=== PATIENT | female | born 1960 | race Caucasian/White ===

== ENCOUNTER 2019-02-18 08:20 | Outpatient (RCR) | payer MEDICARE, OTHER, SELFPAY | END 2019-02-19 00:01 | LOC: LAB 08:20 | PROVIDERS: Family Provider Family Medicine; Visit Provider Family Medicine | DX: N39.0 Urinary tract infection, site not specified (principal); Z79.899 Other long term (current) drug therapy; Z94.0 Kidney transplant status; N18.9 Chronic kidney disease, unspecified; E55.9 Vitamin D deficiency, unspecified; E78.5 Hyperlipidemia, unspecified; E21.3 Hyperparathyroidism, unspecified | CPT/HCPCS: 36415 ×3; 80053 ×3; 80061; 80197 ×3; 81001 ×2; 81003; 82306; 82570 ×3; 83735 ×3; 84100 ×3; 84156 ×3; 84550; 85025 ×3; 87086 ×2; 87497 ×3; 87799 ×3 ==

== ENCOUNTER 2019-02-26 08:33 | Outpatient (RCR) | payer MEDICARE, OTHER, SELFPAY ==
[2019-02-26 09:12] LABS: Basophils # 0.1 10^3/uL (0.0-0.1); Basophils % 0.6 %; Eosinophils # 0.4 10^3/uL (0.0-0.8); Eosinophils % 4.1 %; Hematocrit 43.2 % (37.0-47.0); Hemoglobin 13.6 g/dL (11.5-15.3); Lymphocytes # 0.7 10^3/uL (0.8-4.8); Mean Corpuscular HGB Conc 31.5 g/dL (30.0-36.0); Mean Corpuscular Hemoglobin 29.7 pg (28.0-34.0); Mean Corpuscular Volume 94.3 fL (81-99); Mean Platelet Volume 8.7 fL (7.4-10.4); Monocytes # 0.5 10^3/uL (0.2-0.9); Monocytes % 5.8 %; Neutrophils % 81.2 %; Nucleated Red Blood Cells % 0 %; Platelet Count 208 10^3/cmm (130-400); Red Blood Count 4.58 10^6/uL (4.1-5.3); Red Cell Distribution Width 13.6 % (12.1-15.1); White Blood Count 8.6 10^3/uL (4.0-10.0)
[2019-02-26 09:29] LABS: Alanine Aminotransferase 9 U/L (0-33); Albumin Level 4.6 g/dL (3.5-5.2); Alkaline Phosphatase 69 IU/L (35-105); Anion Gap 13.9 (5-19); Aspartate Amino Transferase 13 U/L (0-32); Blood Urea Nitrogen 19 mg/dL (6-20); Calcium 11.6 mg/Dl (8.6-10.0); Carbon Dioxide 28 mmol/L (22-29); Chloride 98 mmol/L (98-107); Globulin 2.6 g/dL (1.3-4.6); Glomerular Filtration Rate 41.9 mL/min (90-130); Glucose 111 mg/dL (74-109); Magnesium 1.7 mg/dL (1.7-2.3); Phosphorus 3.4 mg/dL (2.5-4.5); Potassium 4.9 mmol/L (3.5-5.1); Sodium 135 mmol/L (136-145); Total Bilirubin 0.4 mg/dL (0.15-1.2); Total Protein 7.2 g/dL (6.6-8.7)
[2019-02-26 09:59] LABS: Bilirubin Urine Neg (NEGATIVE); Blood Urine Neg (Negative); Glucose Urine UA Norm (Normal); Ketones Urine Negative (Negative); Leukocyte Esterase Urine Negative (Negative); Nitrate Urine Negative (Negative); Protein Urine Neg (Negative); Specific Gravity, Urine 1.015 (1.005-1.030); Urine Appearance Clear (CLEAR); Urine Color Yellow (Yellow); Urobilinogen Urine Norm (Negative)
[2019-02-26 10:03] LABS: RBC Urine 0-4 /hpf (0-2)
[2019-02-26 10:04] LABS: Add Urine Culture? No; Bacteria Urine TRACE; Mucus Urine TRACE
[2019-02-26 10:08] LABS: Urine Creatinine 91 mg/dL (28-217)
[2019-02-26 10:57] LABS: Urine Protein Random 9 mg/dL
[2019-03-01 13:41] LABS: Urine BK Virus DNA Quant NO DNA DETECTED copies/mL
[2019-03-03 02:31] LABS: CMV DNA By PCR <200 IU/mL; CMV DNA, QN PCR <2.30 Log IU/mL; SOURCE BLOOD
== END 2019-03-22 23:59 | disposition home or self-care (01) ==
LOC: LAB 08:33
PROVIDERS: Family Provider Family Medicine; PCP Family Medicine; Referring Provider Hospitalist; Visit Provider Hospitalist
DX: N39.0 Urinary tract infection, site not specified (principal); Z79.899 Other long term (current) drug therapy; Z94.0 Kidney transplant status
CPT/HCPCS: 36415; 80053; 80197; 81001; 82570; 83735; 84100; 84156; 85025; 87086; 87799

== ENCOUNTER 2019-02-27 13:15 | Outpatient (CLI) | payer MEDICARE, OTHER, SELFPAY | END 2019-02-27 13:16 | disposition home or self-care (01) | LOC: RHEOACUTE 03-18 14:26 | PROVIDERS: Family Provider Family Medicine; PCP Family Medicine; Visit Provider Family Medicine | DX: M81.0 Age-related osteoporosis without current pathological fracture (principal) | CPT/HCPCS: 96372; J0897 ==

== ENCOUNTER 2019-03-04 08:32 | Outpatient (CLI) | payer MEDICARE, OTHER, SELFPAY ==
[2019-03-04 09:03] LABS: Add Urine Microscopic? NO
[2019-03-04 09:06] LABS: Basophils # 0.1 10^3/uL (0.0-0.1); Basophils % 0.6 %; Eosinophils # 0.2 10^3/uL (0.0-0.8); Eosinophils % 2.4 %; Hematocrit 42.7 % (37.0-47.0); Hemoglobin 13.2 g/dL (11.5-15.3); Lymphocytes # 0.7 10^3/uL (0.8-4.8); Lymphocytes % 7.1 %; Mean Corpuscular HGB Conc 30.9 g/dL (30.0-36.0); Mean Corpuscular Hemoglobin 28.4 pg (28.0-34.0); Mean Platelet Volume 8.5 fL (7.4-10.4); Monocytes # 0.4 10^3/uL (0.2-0.9); Monocytes % 4.6 %; Nucleated Red Blood Cells % 0 %; Platelet Count 210 10^3/cmm (130-400); Red Blood Count 4.64 10^6/uL (4.1-5.3); Red Cell Distribution Width 13.5 % (12.1-15.1); White Blood Count 9.4 10^3/uL (4.0-10.0)
[2019-03-04 09:20] LABS: Alanine Aminotransferase 11 U/L (0-33); Albumin Level 4.6 g/dL (3.5-5.2); Alkaline Phosphatase 66 IU/L (35-105); Anion Gap 15.8 (5-19); Aspartate Amino Transferase 14 U/L (0-32); Blood Urea Nitrogen 19 mg/dL (6-20); Calcium 11.3 mg/Dl (8.6-10.0); Carbon Dioxide 24 mmol/L (22-29); Chloride 103 mmol/L (98-107); Globulin 2.1 g/dL (1.3-4.6); Glomerular Filtration Rate 50.8 mL/min (90-130); Glucose 118 mg/dL (74-109); Magnesium 1.6 mg/dL (1.7-2.3); Phosphorus 2.8 mg/dL (2.5-4.5); Potassium 4.8 mmol/L (3.5-5.1); Sodium 138 mmol/L (136-145); Total Bilirubin 0.5 mg/dL (0.15-1.2); Total Protein 6.7 g/dL (6.6-8.7)
[2019-03-04 11:10] LABS: Bilirubin Urine Neg (NEGATIVE); Blood Urine Neg (Negative); Glucose Urine UA Norm (Normal); Ketones Urine Negative (Negative); Leukocyte Esterase Urine Negative (Negative); Nitrate Urine Negative (Negative); Protein Urine Neg (Negative); Urine Appearance Clear (CLEAR); Urine Color Straw (Yellow); Urobilinogen Urine Norm (Negative)
[2019-03-04 12:05] LABS: Urine Protein Random 10 mg/dL
[2019-03-04 13:53] LABS: Creatinine Urine, Random 80 mg/dL (28-217)
[2019-03-07 16:32] LABS: Urine BK Virus DNA Quant NO DNA DETECTED copies/mL
[2019-03-07 21:51] LABS: CMV DNA By PCR <200 IU/mL; CMV DNA, QN PCR <2.30 Log IU/mL; SOURCE NOT GIVEN
== END 2019-03-04 08:33 | disposition home or self-care (01) ==
LOC: LAB 08:43
PROVIDERS: Family Provider Family Medicine; PCP Family Medicine
DX: N39.0 Urinary tract infection, site not specified (principal); Z79.899 Other long term (current) drug therapy; Z94.0 Kidney transplant status
CPT/HCPCS: 36415; 80053; 80197; 81003; 82575; 83735; 84100; 84156; 85025; 87086; 87799

== ENCOUNTER 2019-03-27 08:56 | Outpatient (CLI) | payer MEDICARE, OTHER, SELFPAY ==
[2019-03-27 09:42] LABS: Basophils # 0.1 10^3/uL (0.0-0.1); Basophils % 0.7 %; Eosinophils # 0.3 10^3/uL (0.0-0.8); Eosinophils % 3.2 %; Hematocrit 43.1 % (37.0-47.0); Hemoglobin 13.6 g/dL (11.5-15.3); Lymphocytes # 0.6 10^3/uL (0.8-4.8); Lymphocytes % 7.6 %; Mean Corpuscular HGB Conc 31.6 g/dL (30.0-36.0); Mean Corpuscular Hemoglobin 28.8 pg (28.0-34.0); Mean Corpuscular Volume 91.3 fL (81-99); Mean Platelet Volume 8.7 fL (7.4-10.4); Monocytes # 0.3 10^3/uL (0.2-0.9); Neutrophils # 6.9 10^3/uL (1.8-7.7); Neutrophils % 84.1 %; Nucleated Red Blood Cells % 0 %; Platelet Count 204 10^3/cmm (130-400); Red Blood Count 4.72 10^6/uL (4.1-5.3); Red Cell Distribution Width 13.3 % (12.1-15.1); White Blood Count 8.3 10^3/uL (4.0-10.0)
[2019-03-27 10:06] LABS: Alanine Aminotransferase 12 U/L (0-33); Albumin Level 4.5 g/dL (3.5-5.2); Alkaline Phosphatase 64 IU/L (35-105); Anion Gap 15.4 (5-19); Aspartate Amino Transferase 17 U/L (0-32); Blood Urea Nitrogen 19 mg/dL (6-20); Calcium 11.2 mg/dL (8.5-10.5); Carbon Dioxide 23 mmol/L (22-29); Chloride 104 mmol/L (98-107); Glomerular Filtration Rate 56.7 mL/min (90-130); Glucose 106 mg/dL (65-115); Magnesium 1.9 mg/dL (1.7-2.3); Phosphorus 2.3 mg/dL (2.5-4.5); Potassium 4.4 mmol/L (3.5-5.1); Sodium 138 mmol/L (136-145); Total Bilirubin 0.4 mg/dL (0.15-1.2); Total Protein 7.5 g/dL (6.6-8.7)
[2019-03-30 12:10] LABS: BK VIRUS DNA, QN PCR NO DNA DETECTED copies/mL; CMV DNA By PCR <200 IU/mL; CMV DNA, QN PCR <2.30 Log IU/mL; SOURCE SERUM; SOURCE WHOLE BLOOD
[2019-03-30 15:21] LABS: Urine BK Virus DNA Quant NO DNA DETECTED copies/mL
== END 2019-03-27 08:57 | disposition home or self-care (01) ==
LOC: LAB 09:04
PROVIDERS: Family Provider Family Medicine; PCP Family Medicine; Visit Provider Hospitalist
DX: N39.0 Urinary tract infection, site not specified (principal); Z79.899 Other long term (current) drug therapy; Z94.0 Kidney transplant status
CPT/HCPCS: 36415; 80053; 80197; 83735; 84100; 85025; 87798; 87799

== ENCOUNTER 2019-04-24 08:30 | Outpatient (CLI) | payer MEDICARE, OTHER, SELFPAY ==
[2019-04-24 09:04] LABS: Basophils # 0.1 10^3/uL (0.0-0.1); Basophils % 0.7 %; Eosinophils # 0.3 10^3/uL (0.0-0.8); Eosinophils % 3.1 %; Hematocrit 40.9 % (37.0-47.0); Hemoglobin 12.8 g/dL (11.5-15.3); Lymphocytes # 0.8 10^3/uL (0.8-4.8); Lymphocytes % 8.8 %; Mean Corpuscular HGB Conc 31.3 g/dL (30.0-36.0); Mean Corpuscular Hemoglobin 28.9 pg (28.0-34.0); Mean Corpuscular Volume 92.3 fL (81-99); Mean Platelet Volume 8.5 fL (7.4-10.4); Monocytes # 0.3 10^3/uL (0.2-0.9); Monocytes % 3.8 %; Neutrophils # 7.1 10^3/uL (1.8-7.7); Neutrophils % 83.3 %; Nucleated Red Blood Cells % 0 %; Platelet Count 206 10^3/cmm (130-400); Red Blood Count 4.43 10^6/uL (4.1-5.3); Red Cell Distribution Width 13.1 % (12.1-15.1); White Blood Count 8.6 10^3/uL (4.0-10.0)
[2019-04-24 09:15] LABS: Alanine Aminotransferase 14 U/L (0-33); Albumin Level 4.5 g/dL (3.5-5.2); Alkaline Phosphatase 66 IU/L (35-105); Anion Gap 15.4 (5-19); Aspartate Amino Transferase 17 U/L (0-32); Blood Urea Nitrogen 17 mg/dL (6-20); Calcium 11.1 mg/dL (8.5-10.5); Carbon Dioxide 25 mmol/L (22-29); Chloride 105 mmol/L (98-107); Globulin 2.7 g/dL (1.3-4.6); Glucose 106 mg/dL (65-115); Magnesium 1.6 mg/dL (1.7-2.3); Phosphorus 2.9 mg/dL (2.5-4.5); Potassium 5.4 mmol/L (3.5-5.1); Sodium 140 mmol/L (136-145); Total Bilirubin 0.4 mg/dL (0.15-1.2); Total Protein 7.2 g/dL (6.6-8.7)
[2019-04-24 09:44] LABS: Bilirubin Urine Neg (NEGATIVE); Blood Urine Neg (Negative); Glucose Urine UA Norm (Normal); Ketones Urine Negative (Negative); Leukocyte Esterase Urine Negative (Negative); Nitrate Urine Negative (Negative); Protein Urine Neg (Negative); Sulfosalicylic Acid Urine Negative; Urine Appearance Clear (CLEAR); Urine Color Yellow (Yellow); Urobilinogen Urine Norm (Negative); pH Urine 5 (5-7)
[2019-04-24 09:51] LABS: Urine Creatinine 45 mg/dL (28-217); Urine Protein Random 5 mg/dL
[2019-04-26 08:51] LABS: BK VIRUS DNA, QN PCR NO DNA DETECTED copies/mL; SOURCE PLASMA
[2019-04-28 07:25] LABS: CMV DNA By PCR <200 IU/mL; CMV DNA, QN PCR <2.30 Log IU/mL; SOURCE WHOLE BLOOD
== END 2019-04-24 08:31 | disposition home or self-care (01) ==
LOC: LAB 08:38
PROVIDERS: Family Provider Family Medicine; PCP Family Medicine; Visit Provider Hospitalist
DX: N39.0 Urinary tract infection, site not specified (principal); Z79.899 Other long term (current) drug therapy; Z94.0 Kidney transplant status
CPT/HCPCS: 36415; 80053; 80197; 81001; 82570; 83735; 84100; 84156; 85025; 87086; 87798

== ENCOUNTER 2019-06-25 08:29 | Outpatient (CLI) | payer MEDICARE, OTHER, SELFPAY ==
[2019-06-25 09:07] LABS: Basophils # 0.1 10^3/uL (0.0-0.1); Basophils % 1.1 %; Eosinophils # 0.3 10^3/uL (0.0-0.8); Eosinophils % 3.9 %; Hematocrit 42.4 % (37.0-47.0); Lymphocytes # 0.7 10^3/uL (0.8-4.8); Lymphocytes % 9.2 %; Mean Corpuscular HGB Conc 30.7 g/dL (30.0-36.0); Mean Corpuscular Hemoglobin 28.8 pg (28.0-34.0); Mean Platelet Volume 8.6 fL (7.4-10.4); Monocytes # 0.3 10^3/uL (0.2-0.9); Monocytes % 4.6 %; Neutrophils % 80.8 %; Nucleated Red Blood Cells % 0 %; Platelet Count 226 10^3/cmm (130-400); Red Blood Count 4.51 10^6/uL (4.1-5.3); Red Cell Distribution Width 13.1 % (12.1-15.1); White Blood Count 7.5 10^3/uL (4.0-10.0)
[2019-06-25 09:23] LABS: Alanine Aminotransferase 13 U/L (0-33); Albumin Level 4.3 g/dL (3.5-5.2); Alkaline Phosphatase 79 IU/L (35-105); Anion Gap 14.4 (5-19); Aspartate Amino Transferase 17 U/L (0-32); Blood Urea Nitrogen 21 mg/dL (6-20); Calcium 11.3 mg/dL (8.5-10.5); Carbon Dioxide 27 mmol/L (22-29); Chloride 105 mmol/L (98-107); Globulin 2.9 g/dL (1.3-4.6); Glomerular Filtration Rate 50.8 mL/min (90-130); Glucose 120 mg/dL (65-115); Osmolality Calculated 292 mOsm/kg (285-295); Phosphorus 2.8 mg/dL (2.5-4.5); Potassium 4.4 mmol/L (3.5-5.1); Sodium 142 mmol/L (136-145); Total Bilirubin 0.3 mg/dL (0.15-1.2); Total Protein 7.2 g/dL (6.6-8.7)
[2019-06-25 12:41] LABS: Urine Creatinine 25 mg/dL (28-217)
[2019-06-25 12:57] LABS: Specific Gravity, Urine 1.005 (1.005-1.030); Urine Appearance Clear (CLEAR); Urine Color Yellow (Yellow); pH Urine 6 (5-7)
[2019-06-25 12:58] LABS: Add Urine Culture? Yes; Bacteria Urine 4+; Bilirubin Urine Neg (NEGATIVE); Blood Urine Neg (Negative); Glucose Urine UA Norm (Normal); Ketones Urine Negative (Negative); Leukocyte Esterase Urine 2+ (Negative); Nitrate Urine Negative (Negative); Protein Urine Neg (Negative); Renal Epithelial Cells Urine 0-4 /hpf; Urobilinogen Urine Norm (Negative); WBC Urine 15-25 /hpf (0-5)
[2019-06-26 06:18] LABS: Total Protein, Random Urine 5.4 mg/dL (0.0-20.0)
[2019-06-30 03:46] LABS: CMV DNA By PCR <200 IU/mL; CMV DNA, QN PCR <2.30 Log IU/mL; SOURCE WHOLE BLOOD
[2019-06-30 08:51] LABS: BK VIRUS DNA, QN PCR NO DNA DETECTED copies/mL; SOURCE BLOOD
== END 2019-06-25 08:30 | disposition home or self-care (01) ==
LOC: LAB 08:35
PROVIDERS: Family Provider Family Medicine; PCP Family Medicine; Visit Provider Hospitalist
DX: N39.0 Urinary tract infection, site not specified (principal); Z79.899 Other long term (current) drug therapy; Z94.0 Kidney transplant status
CPT/HCPCS: 80053; 80197; 81001; 82570; 83735; 84100; 84156; 85025; 87077; 87086; 87186; 87496; 87798

== ENCOUNTER 2019-08-12 08:59 | Outpatient (CLI) | payer MEDICARE, OTHER, SELFPAY ==
--- NOTE | 2019-08-12 09:12 | MM_ITS ---
WS: [id number] BILATERAL DIGITAL SCREENING MAMMOGRAPHY WITH CAD CLINICAL INFORMATION: SCREENING HISTORY: Screening mammogram. No current complaints. COMPARISON: August 10, 2018 TECHNIQUE: Bilateral CC and MLO views. FINDINGS: Scattered fibroglandular densities bilaterally. No suspicious focal mass, asymmetry, calcifications, or architectural distortion. No evidence of malignancy. Vascular calcification. Punctate calcificatio [place]. MM/[id number] IMPRESSION: BI-RADS: 2-Benign FOLLOW UP: 1 Year Follow-up Recommend return to annual screening mammography.
== END 2019-08-12 09:00 | disposition home or self-care (01) ==
PROVIDERS: PCP Family Medicine; Visit Provider Family Medicine
DX: Z12.31 Encounter for screening mammogram for malignant neoplasm of breast (principal)
CPT/HCPCS: 77067

== ENCOUNTER 2019-08-26 09:48 | Outpatient (CLI) | payer MEDICARE, OTHER, SELFPAY ==
[2019-08-26 10:46] LABS: Basophils # 0.1 10^3/uL (0.0-0.1); Basophils % 0.8 %; Eosinophils # 0.2 10^3/uL (0.0-0.8); Eosinophils % 3.6 %; Hematocrit 44.7 % (37.0-47.0); Lymphocytes # 0.7 10^3/uL (0.8-4.8); Lymphocytes % 10.8 %; Mean Corpuscular HGB Conc 31.3 g/dL (30.0-36.0); Mean Corpuscular Hemoglobin 29.5 pg (28.0-34.0); Mean Corpuscular Volume 94.1 fL (81-99); Monocytes # 0.3 10^3/uL (0.2-0.9); Monocytes % 5.2 %; Neutrophils # 5.1 10^3/uL (1.8-7.7); Neutrophils % 79.3 %; Nucleated Red Blood Cells % 0 %; Platelet Count 208 10^3/cmm (130-400); Red Blood Count 4.75 10^6/uL (4.1-5.3); Red Cell Distribution Width 13.2 % (12.1-15.1); White Blood Count 6.4 10^3/uL (4.0-10.0)
[2019-08-26 11:15] LABS: Urine Creatinine 16 mg/dL (28-217); Urine Protein Random 4 mg/dL
[2019-08-26 11:23] LABS: Bilirubin Urine Neg (NEGATIVE); Blood Urine Neg (Negative); Glucose Urine UA Norm (Normal); Ketones Urine Negative (Negative); Leukocyte Esterase Urine 2+ (Negative); Nitrate Urine Positive (Negative); Protein Urine Neg (Negative); Specific Gravity, Urine 1.005 (1.005-1.030); Squamous Epithelial Cell Urine RARE (0-5); Urine Appearance Clear (CLEAR); Urine Color Straw (Yellow); Urobilinogen Urine Norm (Negative); pH Urine 7 (5-7)
[2019-08-26 11:24] LABS: Add Urine Culture? Yes; Bacteria Urine 3+
[2019-08-26 12:45] LABS: Alanine Aminotransferase 15 U/L (0-33); Albumin Level 4.5 g/dL (3.5-5.2); Alkaline Phosphatase 63 IU/L (35-105); Anion Gap 21.2 (5-19); Blood Urea Nitrogen 20 mg/dL (6-20); Calcium 11.2 mg/dL (8.5-10.5); Carbon Dioxide 16 mmol/L (22-29); Chloride 105 mmol/L (98-107); Globulin 2.7 g/dL (1.3-4.6); Glomerular Filtration Rate 64.1 mL/min (90-130); Glucose 104 mg/dL (65-115); Magnesium 1.8 mg/dL (1.7-2.3); Osmolality Calculated 281 mOsm/kg (285-295); Phosphorus 2.5 mg/dL (2.5-4.5); Potassium 5.2 mmol/L (3.5-5.1); Sodium 137 mmol/L (136-145); Total Bilirubin 0.5 mg/dL (0.15-1.2); Total Protein 7.2 g/dL (6.6-8.7)
[2019-08-26 13:01] LABS: Aspartate Amino Transferase 26 U/L (0-32)
[2019-08-30 20:10] LABS: CMV DNA By PCR <200 IU/mL; CMV DNA, QN PCR <2.30 Log IU/mL; SOURCE BLOOD
[2019-08-30 23:25] LABS: BK VIRUS DNA, QN PCR NO DNA DETECTED copies/mL
== END 2019-08-26 09:49 | disposition home or self-care (01) ==
LOC: LAB 09:51
PROVIDERS: PCP Family Medicine; Visit Provider Hospitalist
DX: N39.0 Urinary tract infection, site not specified (principal); Z79.899 Other long term (current) drug therapy; Z94.0 Kidney transplant status
CPT/HCPCS: 36415; 80053; 80197; 81001; 82570; 83735; 84100; 84156; 85025; 87077; 87086; 87186; 87496; 87798

== ENCOUNTER 2019-08-29 10:22 | Outpatient (CLI) | payer MEDICARE, OTHER, SELFPAY ==
[2019-08-29 10:29] VITALS: BP 116/71; PULSE 62; RESP 16; TEMP 36.7; O2SAT 96
[2019-08-29] MEDS: denosumab 60 mg SDV SUBCUT (10:30)
[2019-08-29 11:32] VITALS: BP 136/82; PULSE 88; RESP 16; O2SAT 96
== END 2019-08-29 10:23 | disposition home or self-care (01) ==
LOC: RHEOACUTE 10:24
PROVIDERS: PCP Family Medicine; Visit Provider Internal Medicine Rheumatology
DX: M81.0 Age-related osteoporosis without current pathological fracture (principal)
CPT/HCPCS: 96372; J0897

== ENCOUNTER 2019-08-29 15:50 | Outpatient (CLI) | payer MEDICARE, OTHER, SELFPAY ==
--- NOTE | 2019-08-29 | XR_ITS ---
WS: [id number] SCREENING DEXA SCAN Occipital CLINICAL INFORMATION: OSTEOPOROSIS/HYPERCALCEMIA/HYPERTHYROIDISIM COMPARISON: None. FINDINGS: The L1-L4 bone mineral density measures 0.952 g/cm2. This corresponds to a T score score of -1.9 and Z score of -1.3. Left femoral neck bone mineral density measures 0.660 g/cm2. This corresponds to a T score of -2.8 an d Z score of -2.3. Right femoral neck bone mineral density measures 0.687 g/cm2. This corresponds to a T score -2.5of an d Z score of -2.0. Mean femoral neck bone mineral density measures 0.674 g/cm2. This corresponds to a T score of -2.7 an d Z score of -2.1. XR/XR DEXA axial skeleton* [id number] IMPRESSION: Osteoporosis Patient's FRAX calculated 10 year probability for major osteoporotic fracture i s 28.1 % and osteoporotic hip fracture is 5.8%.
== END 2019-08-29 15:51 | disposition home or self-care (01) ==
LOC: RADWPI 15:53
PROVIDERS: PCP Family Medicine; Visit Provider Family Medicine
DX: M81.0 Age-related osteoporosis without current pathological fracture (principal); E83.52 Hypercalcemia; E05.80 Other thyrotoxicosis without thyrotoxic crisis or storm
CPT/HCPCS: 77080; 96372; J0897

== ENCOUNTER 2019-09-24 09:08 | Emergency (ER) | payer MEDICARE, OTHER, SELFPAY ==
[2019-09-24 09:15] VITALS: BMI 28.1
[2019-09-24 09:19] VITALS: BP 139/77; PULSE 70; RESP 16; TEMP 36.7; O2SAT 99
--- NOTE | 2019-09-24 09:26 | PC.NURSE ---
Ambulated without difficulty to bathroom to provide urinary sample.
--- NOTE | 2019-09-24 09:31 | US_ITS ---
WS: [id number] Complete ABDOMINAL ULTRASOUND HISTORY: abd pain COMPARISON: 01/08/2019 Liver: Greater than 18 cm in length. Marked enlargement of the liver with numerous cysts throughout. No bile duct dilatation. Gallbladder: Normally distended with no gallstones, wall thickening or pericholecystic fluid. Gallbladder wall thickness: 0.3 cm. Pancreas: Normal size and echogenicity. CBD: 0.5 cm. Right kidney: 15.9 cm x 8.9 cm x 7.7 cm. Markedly enlarged kidney with increased echogenicity throug hout. Multiple cysts and complex cystic masses are identified. Left kidney: 15.9 cm x 10.2 cm x 9.6 cm. Markedly enlarged kidney with increased echogenicity throug hout. Multiple cysts and complex cystic masses are identified. No hydronephrosis. There is a transplanted kidney in the pelvis which is normal size measuring 11 cm in length. No hydro nephrosis or mass. Normal echogenicity with no adjacent fluid. Normal vascularity. Spleen: Spleen is top normal size at 13.3 cm. Abdominal aorta and IVC are within normal limits. No ascites. US/US abdomen complete* [id number] IMPRESSION: 1. Polycystic liver and renal disease. 2. Transplanted kidney in the pelvis is normal size with no abnormality identi fied. 3. No ascites. 4. Normal gallbladder.
[2019-09-24 09:54] LABS: Basophils % 0.2 %; Eosinophils # 0.1 10^3/uL (0.0-0.8); Eosinophils % 0.9 %; Hematocrit 36.8 % (37.0-47.0); Hemoglobin 11.7 g/dL (11.5-15.3); Lymphocytes # 0.5 10^3/uL (0.8-4.8); Lymphocytes % 6.2 %; Mean Corpuscular HGB Conc 31.8 g/dL (30.0-36.0); Mean Corpuscular Volume 91.1 fL (81-99); Mean Platelet Volume 8.9 fL (7.4-10.4); Monocytes # 0.7 10^3/uL (0.2-0.9); Monocytes % 9.2 %; Neutrophils # 6.64 10^3/uL (1.8-7.7); Neutrophils % 82.8 %; Nucleated Red Blood Cells % 0 %; Platelet Count 251 10^3/cmm (130-400); Red Blood Count 4.04 10^6/uL (4.1-5.3); Red Cell Distribution Width 12.8 % (12.1-15.1)
[2019-09-24 10:01] LABS: Add Urine Microscopic? YES; Bilirubin Urine Neg (NEGATIVE); Blood Urine 2+ (Negative); Glucose Urine UA Norm (Normal); Ketones Urine Negative (Negative); Leukocyte Esterase Urine 2+ (Negative); Nitrate Urine Negative (Negative); Protein Urine Neg (Negative); Specific Gravity, Urine 1.005 (1.005-1.030); Urine Appearance Clear (CLEAR); Urine Color Yellow (Yellow); Urobilinogen Urine Norm (Negative); pH Urine 6 (5-7)
[2019-09-24 10:04] LABS: WBC Urine 55-80 /hpf (0-5)
[2019-09-24 10:05] LABS: Add Urine Culture? Yes; Amorphous Sediment Urine TRACE; Bacteria Urine 2+; Mucus Urine TRACE; Squamous Epithelial Cell Urine 0-4 (0-5)
[2019-09-24 10:10] LABS: Alanine Aminotransferase 9 U/L (0-33); Alkaline Phosphatase 84 IU/L (35-105); Anion Gap 14.3 (5-19); Aspartate Amino Transferase 11 U/L (0-32); Blood Urea Nitrogen 18 mg/dL (6-20); Calcium 10.2 mg/dL (8.5-10.5); Carbon Dioxide 22 mmol/L (22-29); Chloride 98 mmol/L (98-107); Glomerular Filtration Rate 56.7 mL/min (90-130); Glucose 142 mg/dL (65-115); Lipase 31 U/L (13-60); Osmolality Calculated 269 mOsm/kg (285-295); Potassium 4.3 mmol/L (3.5-5.1); Sodium 130 mmol/L (136-145); Total Bilirubin 0.6 mg/dL (0.15-1.2)
[2019-09-24] MEDS: cefTRIAXone 2,000 MG in sodium chloride 0.9% (plus) 50 ML 100 MG IV (10:38)
--- NOTE | 2019-09-24 11:20 | ED_ITS ---
HPI - Abdominal Pain General: Chief Complaint: Abdominal Pain Stated Complaint: abd pain Time Seen by Provider: 09/24/19 09:17 History of Present Illness: HPI narrative: 88-year-old female who has previously had a renal transplant. She comes in with right upper quadrant pain for the last 5 days denies nausea vomiting or diarrhea no fever sweats or chills. Radiates up into her back at times. She has had recurrent UTIs in the past. She is not noticed any triggers of particular foods. She denies dysuria urgency or frequency no respiratory symptoms denies chest pain. She has had a few loose stools. She denies any bloating. She does have a history of polycystic kidney disease and liver cysts. Her renal transplant was about 3 years ago she is seen at [facility]. elicited complaint: abdominal pain Pertinent past history: other (Renal transplant) Onset (ago): day(s) (5) Pain Consistency: constant Location: RUQ Severity: moderate Quality: cramping Radiation: none Migration to: no migration Exacerbating factors: nothing Relieving factors: nothing Context: other (Has not noted any food triggers) Associated Symptoms: Reports coffee ground emesis; Denies change in stool character, chills, constipation, GI cramping, diarrhea, dyspepsia, fever(s), heartburn, hematochezia, hematuria, hematemesis, fecal incontinence, loose stools, melena, nausea, poor appetite, syncope and vomiting Review of Systems Const: Denies: fever(s) or chills ENMT: Denies: throat pain, ear or mastoid pain, nasal discharge or nasal congestion Card: Denies: syncope Resp: Denies: dyspnea, productive cough or non-productive cough GI: Reports: coffee ground emesis; Denies: nausea, vomiting, hematemesis, heartburn, diarrhea, constipation, GI cramping, fecal incontinence, change in stool character, hematochezia or melena : Denies: hematuria Skin/Breast: Denies: rash or pruritus PFSH ED PFSH: Medical History (Updated 09/27/19 @ 17:34 by Tanner Garner DO) Hypothyroidism Polycystic kidney disease Surgical History (Updated 09/27/19 @ 17:34 by Tanner Garner DO) History of hysterectomy History of kidney transplant History of sinus surgery History of tubal ligation Physical Exam Const: COMMON NORMALS: no acute distress GENERAL APPEARANCE: cooperative and comfortable ORIENTATION/CONSCIOUSNESS: Yes awake, Yes oriented to person, Yes oriented to place and Yes oriented to time HENMT: COMMON NORMALS: normocephalic and atraumatic HEAD & SCALP: normocephalic and atraumatic Eye: COMMON NORMALS: Equal, round and reactive pupils present, EOMs intact bilaterally, conjunctivae normal and no scleral icterus CONJUNCTIVA: Yes conjunctivae normal PUPIL: Yes Equal, round and reactive pupils present Neck/C-Spine: COMMON NORMALS: full ROM, no lymphadenopathy, supple and no JVD Lymph: LYMPHATIC: no lymphadenopathy noted and no lymphedema noted Resp: COMMON NORMALS: normal respiratory effort, No retractions, No use of accessory muscles and clear to auscultation bilaterally AUSCULTATION: clear to auscultation bilaterally Cardio: COMMON NORMALS: no JVD, regular rate, regular rhythm and No murmurs present (Cardio) RATE: regular rate RHYTHM: regular rhythm GI: AUSCULTATION: Yes normoactive bowel sounds PALPATION: Yes Tenderness to palpation present (GI) (Diffuse. Slightly increased no right upper quadrant donor kidney is palpable in the mid right quadrants. It is minimally tender.) and No Guarding due to palpation present (GI) Extremity: COMMON NORMALS: normal to inspection, capillary refill normal, no clubbing, cyanosis or edema, no calf tenderness and no pedal edema Neuro: SENSORIUM/ORIENTATION: Yes oriented to person, Yes oriented to place and Yes oriented to time Skin: COMMON NORMALS: no rashes or lesions noted GENERAL SKIN EXAM: no rashes or lesions noted Course Vital Signs: Vital signs: Vital Signs Temperature 98.0 F 09/24/19 09:19 Pulse Rate 98 09/24/19 12:46 Respiratory Rate 18 09/24/19 12:46 Blood Pressure 134/74 09/24/19 12:46 Pulse Oximetry 98 09/24/19 12:46 MDM - Abdominal Pain MDM Narrative: Medical decision making narrative: Discussed with transplant coordination team they agreed that she did not need to be hospitalized at this point could be treated as an outpatient. We gave her dose Rocephin will discharge home on oral antibiotics pain medications and antiemetics she should follow-up with her regular doctor as soon as possible on Monday return to the emergency room if she has any problems at all or develops a fever. Lab Data: Labs: Lab Results 09/24/19 09/24/19 09/24/19 Range/Units 09:38 09:49 09:49 WBC 8.0 (4.0-10.0) 10^3/ uL RBC 4.04 L (4.1-5.3) 10^6/u L Hgb 11.7 (11.5-15.3) g/dL Hct 36.8 L (37.0-47.0) % MCV 91.1 (81-99) fL MCH 29.0 (28.0-34.0) pg MCHC 31.8 (30.0-36.0) g/dL RDW 12.8 (12.1-15.1) % Plt Count 251 (130-400) 10^3/c mm MPV 8.9 (7.4-10.4) fL Neut % (Auto) 82.8 % Lymph % (Auto) 6.2 % [place] % (Auto) 9.2 % Eos % (Auto) 0.9 % Baso % (Auto) 0.2 % Neut # (Auto) 6.64 (1.8-7.7) 10^3/u L Lymph # (Auto) 0.5 L (0.8-4.8) 10^3/u L [place] # (Auto) 0.7 (0.2-0.9) 10^3/u L Eos # (Auto) 0.1 (0.0-0.8) 10^3/u L Baso # (Auto) 0.0 (0.0-0.1) 10^3/u L Nucleated RBC % (a uto) 0 % Nucleated RBCs # 0.0 /100WBC Sodium 130 L (136-145) mmol/L Potassium 4.3 (3.5-5.1) mmol/L Chloride 98 (98-107) mmol/L Carbon Dioxide 22 (22-29) mmol/L Anion Gap 14.3 (5-19) BUN 18 (6-20) mg/dL Creatinine 1.0 H (0.5-0.9) mg/dL GFR Calculation 56.7 L (90-130) mL/min Glucose 142 H (65-115) mg/dL Calculated Osmolal ity 269 L (285-295) mOsm/k g Calcium 10.2 (8.5-10.5) mg/dL Total Bilirubin 0.6 (0.15-1.2) mg/dL AST 11 (0-32) U/L ALT 9 (0-33) U/L Alkaline Phosphata se 84 (35-105) IU/L Total Protein 7.0 (6.6-8.7) g/dL Albumin 4.0 (3.5-5.2) g/dL Globulin 3.0 (1.3-4.6) g/dL Lipase 31 (13-60) U/L Urine Color Yellow (Yellow) Urine Appearance Clear (CLEAR) Urine pH 6 (5-7) Ur Specific Gravit y 1.005 (1.005-1.030) Urine Protein Neg (Negative) Urine Glucose (UA) Norm (Normal) Urine Ketones Negative (Negative) Urine Blood 2+ H (Negative) Urine Nitrate Negative (Negative) Urine Bilirubin Neg (NEGATIVE) Urine Urobilinogen Norm (Negative) mg/dL Ur Leukocyte Liliana ase 2+ H (Negative) Urine RBC 5-10 H (0-2) /hpf Urine WBC 55-80 H (0-5) /hpf Ur Squamous Epith Cells 0-4 H (0-5) Amorphous Sediment Trace Urine Bacteria 2+ H (NONE) Urine Mucus Trace Discharge Plan Discharge Patient Disposition: Home Clinical Impression: Pyelonephritis, Renal transplant recipient, PCK (polycystic kidney disease) Condition: Stable Prescriptions: New hydrocodone-acetaminophen 5-325 mg tablet 1 tab PO Q6H PRN (Reason: pain) Qty: 20 RF: 0 Zofran 4 mg tablet 4 mg PO Q6H PRN (Reason: nausea and vomiting) Qty: 15 RF: 0 Cipro 500 mg tablet 500 mg PO BID Qty: 14 RF: 0 No Action prednisone 5 mg Tablet 5 mg PO DAILY RF: 0 methenamine hippurate 1 gram Tablet 1 g PO BID RF: 0 MagOx 400 mg (241.3 mg magnesium) Tablet 800 mg PO BID RF: 0 Vitamin C 500 mg Tablet 500 mg PO BID RF: 0 Vitamin C 500 mg Tablet 500 mg PO DAILY RF: 0 aspirin 81 mg Tablet,Chewable 81 mg PO DAILY RF: 0 zinc 50 mg Tablet 50 mg PO DAILY RF: 0 Nexium 24HR 20 mg Capsule,Delayed Release(Dr/Ec) 20 mg PO DAILY RF: 0 Myfortic 180 mg Tablet,Delayed Release (Dr/Ec) 360 mg PO BID RF: 0 Envarsus XR 1 mg Tablet Extended Release 24 Hr 2 mg PO DAILY RF: 0 carvedilol 25 mg Tablet 25 mg PO BID RF: 0 amlodipine 10 mg Tablet 10 mg PO DAILY RF: 0 levothyroxine 125 mcg Tablet 125 mcg PO DAILY RF: 0 pravastatin 20 mg Tablet 20 mg PO DAILY RF: 0 Uloric 40 mg Tablet 40 mg PO DAILY RF: 0 Discharge Orders: Discharge Order (Routine); Ordered 09/24/19 Ordered By: Tanner Garner Referrals: Cuco Palafox MD [Primary Care Provider] - Discharge Diet: Usual diet Discharge Activity: Increase activity as tolerated Activity Restrictions/Additional Instructions: Return to the halfway if you have any fever or worsening of abdominal pain or pain is uncontrolled by the prescription medications you were given. Please call Dr. Cuco Palafox office as soon as possible after you leave here to make an appointment for follow-up tomorrow. I have called and talked to him he is expecting to hear from you and see you tomorrow. Discharge Date/Time: 09/24/19 12:48 Coding Level of Care Code ED Brick Stacker for Madeleine Amaya
[2019-09-24 11:29] VITALS: RESP 18
[2019-09-24] MEDS: morphine 4 mg/mL SDV 1 mL IVP (11:29)
[2019-09-24] MEDS: sodium chloride 0.9% 1,000 ML 999 ML IV (11:30)
[2019-09-24 12:46] VITALS: BP 134/74; PULSE 98; RESP 18; O2SAT 98
== END 2019-09-24 12:48 | disposition home or self-care (01) ==
PROVIDERS: Nurse Practitioner Family; Emergency Provider Family Medicine; PCP Family Medicine
DX: N12 Tubulo-interstitial nephritis, not specified as acute or chronic (principal); Q61.3 Polycystic kidney, unspecified; Z94.0 Kidney transplant status; Z79.82 Long term (current) use of aspirin
CPT/HCPCS: 12345; 36415; 76700; 80053; 81001; 81003; 83690; 85025; 87040; 87077; 87086; 87186; 96365; 96375; 99283; C1751; J0696; J2270; J7030

== ENCOUNTER 2019-09-25 08:03 | Outpatient (CLI) | payer MEDICARE, OTHER, SELFPAY ==
[2019-09-25 08:41] LABS: Basophils % 0.4 %; Eosinophils # 0.2 10^3/uL (0.0-0.8); Eosinophils % 1.9 %; Hematocrit 36.5 % (37.0-47.0); Hemoglobin 11.4 g/dL (11.5-15.3); Lymphocytes # 0.4 10^3/uL (0.8-4.8); Lymphocytes % 4.2 %; Mean Corpuscular HGB Conc 31.2 g/dL (30.0-36.0); Mean Corpuscular Hemoglobin 29.5 pg (28.0-34.0); Mean Corpuscular Volume 94.3 fL (81-99); Mean Platelet Volume 8.8 fL (7.4-10.4); Monocytes # 0.9 10^3/uL (0.2-0.9); Monocytes % 9.5 %; Neutrophils # 7.84 10^3/uL (1.8-7.7); Neutrophils % 83.2 %; Nucleated Red Blood Cells % 0 %; Platelet Count 259 10^3/cmm (130-400); Red Blood Count 3.87 10^6/uL (4.1-5.3); White Blood Count 9.4 10^3/uL (4.0-10.0)
[2019-09-25 08:56] LABS: Alanine Aminotransferase 9 U/L (0-33); Albumin Level 3.6 g/dL (3.5-5.2); Alkaline Phosphatase 78 IU/L (35-105); Anion Gap 12.5 (5-19); Aspartate Amino Transferase 11 U/L (0-32); Blood Urea Nitrogen 18 mg/dL (6-20); Calcium 10.1 mg/dL (8.5-10.5); Carbon Dioxide 26 mmol/L (22-29); Chloride 99 mmol/L (98-107); Globulin 3.1 g/dL (1.3-4.6); Glomerular Filtration Rate 50.8 mL/min (90-130); Glucose 132 mg/dL (65-115); Osmolality Calculated 274 mOsm/kg (285-295); Phosphorus 2.3 mg/dL (2.5-4.5); Potassium 4.5 mmol/L (3.5-5.1); Sodium 133 mmol/L (136-145); Total Bilirubin 0.3 mg/dL (0.15-1.2); Total Protein 6.7 g/dL (6.6-8.7)
[2019-09-25 09:15] LABS: Creatinine Urine, Random 119 mg/dL (28-217); Total Protein, Random Urine 30.8 mg/dL (0.0-20.0)
[2019-09-25 09:24] LABS: Urine Appearance SL Hazy (CLEAR); Urine Color Yellow (Yellow); pH Urine 6.5 (5-7)
[2019-09-25 09:25] LABS: Add Urine Culture? Yes; Bacteria Urine TRACE; Bilirubin Urine Neg (NEGATIVE); Blood Urine Neg (Negative); Glucose Urine UA Norm (Normal); Ketones Urine Negative (Negative); Leukocyte Esterase Urine 2+ (Negative); Mucus Urine TRACE; Nitrate Urine Negative (Negative); Protein Urine Neg (Negative); Squamous Epithelial Cell Urine 0-4 (0-5); Urobilinogen Urine Norm (Negative); WBC Urine >100 /hpf (0-5)
== END 2019-09-25 08:04 | disposition home or self-care (01) ==
LOC: LAB 08:08
PROVIDERS: PCP Family Medicine; Visit Provider Internal Medicine Nephrology
DX: Z94.0 Kidney transplant status (principal); E79.0 Hyperuricemia without signs of inflammatory arthritis and tophaceous disease; Z79.899 Other long term (current) drug therapy; N18.9 Chronic kidney disease, unspecified; E83.9 Disorder of mineral metabolism, unspecified; M89.9 Disorder of bone, unspecified
CPT/HCPCS: 80053; 80197; 81001; 82575; 83735; 84100; 84156; 85025

== ENCOUNTER 2019-11-04 08:32 | Outpatient (CLI) | payer MEDICARE, OTHER, SELFPAY ==
[2019-11-04 10:39] LABS: Basophils # 0.1 10^3/uL (0.0-0.1); Basophils % 0.6 %; Eosinophils # 0.3 10^3/uL (0.0-0.8); Eosinophils % 2.8 %; Hematocrit 44.5 % (37.0-47.0); Hemoglobin 13.8 g/dL (11.5-15.3); Lymphocytes # 0.7 10^3/uL (0.8-4.8); Lymphocytes % 7.9 %; Mean Corpuscular Hemoglobin 29.4 pg (28.0-34.0); Mean Corpuscular Volume 94.7 fL (81-99); Mean Platelet Volume 9.3 fL (7.4-10.4); Monocytes # 0.3 10^3/uL (0.2-0.9); Monocytes % 3.5 %; Neutrophils # 7.68 10^3/uL (1.8-7.7); Neutrophils % 84.9 %; Nucleated Red Blood Cells % 0 %; Platelet Count 232 10^3/cmm (130-400); Red Cell Distribution Width 13.8 % (12.1-15.1)
[2019-11-04 10:59] LABS: Glucose Urine UA Norm (Normal); Ketones Urine Negative (Negative); Protein Urine Neg (Negative); Urine Appearance Clear (CLEAR); Urine Color Straw (Yellow); pH Urine 7 (5-7)
[2019-11-04 11:00] LABS: Add Urine Culture? No; Bacteria Urine TRACE /hpf; Bilirubin Urine Neg (Negative); Blood Urine Neg (Negative); Leukocyte Esterase Urine Negative (Negative); Nitrate Urine Negative (Negative); Squamous Epithelial Cell Urine RARE /hpf (0-5); Urobilinogen Urine Norm (Negative); WBC Urine RARE /hpf (0-5)
[2019-11-04 11:04] LABS: Creatinine Urine, Random 29 mg/dL (28-217)
[2019-11-04 11:09] LABS: Calcium 10.1 mg/dL (8.5-10.5); Parathyroid Hormone 170.2 pg/mL (15-65); Urine Protein Random 4 mg/dL
[2019-11-04 11:13] LABS: 25 Hydroxy Vitamin D 41 ng/mL (30-100); Alanine Aminotransferase 14 U/L (0-33); Albumin Level 4.6 g/dL (3.5-5.2); Alkaline Phosphatase 76 IU/L (35-105); Aspartate Amino Transferase 16 U/L (0-32); Blood Urea Nitrogen 18 mg/dL (8-23); Calcium 9.7 mg/dL (8.5-10.5); Carbon Dioxide 25 mmol/L (22-29); Chloride 104 mmol/L (98-107); Chol HDL Ratio 2.83 mg/dL (0.0-4.40); Cholesterol 133 mg/dL (0-200); Globulin 2.9 g/dL (1.3-4.6); Glomerular Filtration Rate 63.9 mL/min (90-130); Glucose 117 mg/dL (65-115); HDL Cholesterol 47 mg/dL (60-100); LDL Cholesterol Calculated 51 mg/dL (50-129); LDL HDL Ratio 1.09 RATIO (0.00-3.22); Magnesium 1.7 mg/dL (1.7-2.3); Osmolality Calculated 286 mOsm/kg (285-295); Phosphorus 1.8 mg/dL (2.5-4.5); Sodium 139 mmol/L (136-145); Total Bilirubin 0.5 mg/dL (0.15-1.2); Total Protein 7.5 g/dL (6.6-8.7); Triglycerides 177 mg/dL (0-150); Uric Acid 3.8 mg/dL (2.4-5.7)
[2019-11-08 08:51] LABS: BK VIRUS DNA, QN PCR NO DNA DETECTED copies/mL; SOURCE NOT GIVEN
[2019-11-09 01:17] LABS: CMV DNA By PCR <200 IU/mL; CMV DNA, QN PCR <2.30 Log IU/mL; SOURCE BLOOD
== END 2019-11-04 08:33 | disposition home or self-care (01) ==
LOC: LAB 08:38
PROVIDERS: PCP Family Medicine; Visit Provider Internal Medicine Nephrology
DX: Z94.0 Kidney transplant status (principal); E79.0 Hyperuricemia without signs of inflammatory arthritis and tophaceous disease; Z79.899 Other long term (current) drug therapy; N18.9 Chronic kidney disease, unspecified; E83.9 Disorder of mineral metabolism, unspecified; M89.9 Disorder of bone, unspecified
CPT/HCPCS: 80053; 80061; 80197; 81001; 82306; 82310; 82575; 83735; 83970; 84100; 84156; 84550; 85025; 87496; 87798

== ENCOUNTER 2019-11-25 08:27 | Outpatient (CLI) | payer MEDICARE, OTHER, SELFPAY ==
[2019-11-25 09:04] LABS: Basophils # 0.1 10^3/uL (0.0-0.1); Basophils % 0.9 %; Eosinophils # 0.3 10^3/uL (0.0-0.8); Eosinophils % 3.8 %; Hematocrit 43.4 % (37.0-47.0); Hemoglobin 13.6 g/dL (11.5-15.3); Lymphocytes # 0.9 10^3/uL (0.8-4.8); Mean Corpuscular HGB Conc 31.3 g/dL (30.0-36.0); Mean Corpuscular Hemoglobin 29.1 pg (28.0-34.0); Mean Corpuscular Volume 92.7 fL (81-99); Monocytes # 0.3 10^3/uL (0.2-0.9); Monocytes % 4.4 %; Neutrophils # 6.12 10^3/uL (1.8-7.7); Neutrophils % 79.5 %; Nucleated Red Blood Cells % 0 %; Platelet Count 218 10^3/cmm (130-400); Red Blood Count 4.68 10^6/uL (4.1-5.3); Red Cell Distribution Width 13.5 % (12.1-15.1); White Blood Count 7.7 10^3/uL (4.0-10.0)
[2019-11-25 09:16] LABS: Alanine Aminotransferase 15 U/L (0-33); Albumin Level 4.5 g/dL (3.5-5.2); Alkaline Phosphatase 78 IU/L (35-105); Anion Gap 13.6 (5-19); Aspartate Amino Transferase 17 U/L (0-32); Blood Urea Nitrogen 24 mg/dL (8-23); Calcium 10.8 mg/dL (8.5-10.5); Carbon Dioxide 25 mmol/L (22-29); Chloride 100 mmol/L (98-107); Globulin 2.5 g/dL (1.3-4.6); Glomerular Filtration Rate 63.9 mL/min (90-130); Glucose 102 mg/dL (65-115); Magnesium 1.7 mg/dL (1.7-2.3); Osmolality Calculated 282 mOsm/kg (285-295); Potassium 4.6 mmol/L (3.5-5.1); Sodium 134 mmol/L (136-145); Total Bilirubin 0.5 mg/dL (0.15-1.2)
[2019-11-25 11:32] LABS: Add Urine Microscopic? NO
[2019-11-25 12:18] LABS: Bilirubin Urine Neg (Negative); Blood Urine Neg (Negative); Glucose Urine UA Norm (Normal); Ketones Urine Negative (Negative); Leukocyte Esterase Urine Negative (Negative); Nitrate Urine Negative (Negative); Protein Urine Neg (Negative); Specific Gravity, Urine 1.005 (1.005-1.030); Urine Appearance Clear (CLEAR); Urine Color Yellow (Yellow); Urobilinogen Urine Norm (Negative); pH Urine 6 (5-7)
[2019-11-25 12:43] LABS: Creatinine Urine, Random 29 mg/dL (28-217)
[2019-11-25 12:49] LABS: Urine Protein Random 4 mg/dL
== END 2019-11-25 08:28 | disposition home or self-care (01) ==
LOC: LAB 08:28
PROVIDERS: PCP Family Medicine; Visit Provider Internal Medicine Nephrology
DX: Z94.0 Kidney transplant status (principal); E79.0 Hyperuricemia without signs of inflammatory arthritis and tophaceous disease; Z79.899 Other long term (current) drug therapy; N18.9 Chronic kidney disease, unspecified; E83.9 Disorder of mineral metabolism, unspecified; M89.9 Disorder of bone, unspecified
CPT/HCPCS: 36415; 80053; 80197; 81003; 82575; 83735; 84100; 84156; 85025

== ENCOUNTER 2019-12-25 08:29 | Outpatient (CLI) | payer MEDICARE, OTHER, SELFPAY ==
[2019-12-25 09:18] LABS: Basophils # 0.1 10^3/uL (0.0-0.1); Basophils % 0.6 %; Eosinophils # 0.3 10^3/uL (0.0-0.8); Eosinophils % 3.3 %; Hematocrit 42.9 % (37.0-47.0); Hemoglobin 13.6 g/dL (11.5-15.3); Lymphocytes # 0.7 10^3/uL (0.8-4.8); Lymphocytes % 8.8 %; Mean Corpuscular HGB Conc 31.7 g/dL (30.0-36.0); Mean Corpuscular Hemoglobin 29.4 pg (28.0-34.0); Mean Corpuscular Volume 92.7 fL (81-99); Mean Platelet Volume 8.8 fL (7.4-10.4); Monocytes # 0.4 10^3/uL (0.2-0.9); Monocytes % 4.9 %; Nucleated Red Blood Cells % 0 %; Platelet Count 205 10^3/cmm (130-400); Red Blood Count 4.63 10^6/uL (4.1-5.3); Red Cell Distribution Width 13.4 % (12.1-15.1); White Blood Count 8.3 10^3/uL (4.0-10.0)
[2019-12-25 09:43] LABS: Alanine Aminotransferase 16 U/L (0-33); Albumin Level 4.5 g/dL (3.5-5.2); Alkaline Phosphatase 72 IU/L (35-105); Anion Gap 14.5 (5-19); Aspartate Amino Transferase 16 U/L (0-32); Blood Urea Nitrogen 16 mg/dL (8-23); Calcium 10.3 mg/dL (8.5-10.5); Carbon Dioxide 22 mmol/L (22-29); Chloride 104 mmol/L (98-107); Chol HDL Ratio 2.94 mg/dL (0.0-4.40); Cholesterol 147 mg/dL (0-200); Globulin 2.3 g/dL (1.3-4.6); Glomerular Filtration Rate 56.6 mL/min (90-130); Glucose 139 mg/dL (65-115); HDL Cholesterol 50 mg/dL (60-100); LDL Cholesterol Calculated 73 mg/dL (50-129); LDL HDL Ratio 1.46 RATIO (0.00-3.22); Magnesium 1.8 mg/dL (1.7-2.3); Osmolality Calculated 285 mOsm/kg (285-295); Phosphorus 2.9 mg/dL (2.5-4.5); Potassium 4.5 mmol/L (3.5-5.1); Sodium 136 mmol/L (136-145); Total Bilirubin 0.4 mg/dL (0.15-1.2); Total Protein 6.8 g/dL (6.6-8.7); Triglycerides 118 mg/dL (0-150); Uric Acid 6.9 mg/dL (2.4-5.7)
[2019-12-25 10:04] LABS: Calcium 10.5 mg/dL (8.5-10.5); Parathyroid Hormone 119.9 pg/mL (15-65)
[2019-12-25 10:13] LABS: Urine Creatinine 83 mg/dL (28-217)
[2019-12-25 10:16] LABS: Bilirubin Urine Neg (Negative); Blood Urine 2+ (Negative); Glucose Urine UA Norm (Normal); Ketones Urine Negative (Negative); Nitrate Urine Positive (Negative); Protein Urine Neg (Negative); UPRO/UCREAT Ratio 0.27 mg/mg CR; Urine Appearance SL Hazy (CLEAR); Urine Color Straw (Yellow); Urine Protein Random 22 mg/dL; Urobilinogen Urine Norm (Negative)
[2019-12-25 10:17] LABS: Add Urine Culture? Yes; Bacteria Urine 2+ /hpf; Leukocyte Esterase Urine 2+ (Negative); RBC Urine 0-4 /hpf (0-2); WBC Urine 55-80 /hpf (0-5)
[2019-12-25 13:39] LABS: 25 Hydroxy Vitamin D 41 ng/mL (30-100)
[2019-12-28 14:58] LABS: BK VIRUS DNA, QN PCR NO DNA DETECTED copies/mL; SOURCE NOT GIVEN
[2019-12-29 02:48] LABS: CMV DNA By PCR <200 IU/mL; CMV DNA, QN PCR <2.30 Log IU/mL; SOURCE BLOOD
== END 2019-12-25 08:30 | disposition home or self-care (01) ==
PROVIDERS: PCP Family Medicine; Visit Provider Internal Medicine Nephrology
DX: N18.9 Chronic kidney disease, unspecified (principal); Z79.899 Other long term (current) drug therapy; Z94.0 Kidney transplant status; E79.0 Hyperuricemia without signs of inflammatory arthritis and tophaceous disease; E03.9 Hypothyroidism, unspecified; M89.9 Disorder of bone, unspecified
CPT/HCPCS: 36415; 80053; 80061; 80197; 81001; 82306; 82310; 82570; 83735; 83970; 84100; 84156; 84550; 85025; 87496; 87798

== ENCOUNTER 2020-01-23 08:25 | Outpatient (CLI) | payer MEDICARE, OTHER, SELFPAY ==
[2020-01-23 09:15] LABS: Basophils % 0.5 %; Eosinophils # 0.2 10^3/uL (0.0-0.8); Eosinophils % 3.2 %; Hematocrit 45.2 % (37.0-47.0); Hemoglobin 14.6 g/dL (11.5-15.3); Lymphocytes # 0.8 10^3/uL (0.8-4.8); Lymphocytes % 10.2 %; Mean Corpuscular HGB Conc 32.3 g/dL (30.0-36.0); Mean Corpuscular Hemoglobin 29.4 pg (28.0-34.0); Mean Corpuscular Volume 91.1 fL (81-99); Mean Platelet Volume 8.6 fL (7.4-10.4); Monocytes # 0.3 10^3/uL (0.2-0.9); Monocytes % 3.7 %; Neutrophils # 6.17 10^3/uL (1.8-7.7); Neutrophils % 82.1 %; Nucleated Red Blood Cells % 0 %; Platelet Count 229 10^3/cmm (130-400); Red Blood Count 4.96 10^6/uL (4.1-5.3); Red Cell Distribution Width 13.1 % (12.1-15.1); White Blood Count 7.5 10^3/uL (4.0-10.0)
[2020-01-23 09:31] LABS: Alanine Aminotransferase 18 U/L (0-33); Albumin Level 4.6 g/dL (3.5-5.2); Alkaline Phosphatase 73 IU/L (35-105); Anion Gap 15.5 (5-19); Aspartate Amino Transferase 17 U/L (0-32); Blood Urea Nitrogen 20 mg/dL (8-23); Carbon Dioxide 26 mmol/L (22-29); Chloride 101 mmol/L (98-107); Globulin 2.6 g/dL (1.3-4.6); Glomerular Filtration Rate 56.6 mL/min (90-130); Glucose 105 mg/dL (65-115); Magnesium 1.7 mg/dL (1.7-2.3); Osmolality Calculated 289 mOsm/kg (285-295); Phosphorus 2.6 mg/dL (2.5-4.5); Potassium 4.5 mmol/L (3.5-5.1); Sodium 138 mmol/L (136-145); Total Bilirubin 0.5 mg/dL (0.15-1.2); Total Protein 7.2 g/dL (6.6-8.7)
[2020-01-23 09:47] LABS: Bilirubin Urine Neg (Negative); Blood Urine Neg (Negative); Glucose Urine UA Norm (Normal); Ketones Urine Negative (Negative); Leukocyte Esterase Urine 1+ (Negative); Nitrate Urine Positive (Negative); Protein Urine Neg (Negative); Specific Gravity, Urine 1.005 (1.005-1.030); Sulfosalicylic Acid Urine Negative (Negative); Urine Appearance SL Hazy (CLEAR); Urine Color Straw (Yellow); Urobilinogen Urine Norm (Negative); pH Urine 8 (5-7)
[2020-01-23 09:52] LABS: Add Urine Culture? Yes; Bacteria Urine 2+ /hpf; Squamous Epithelial Cell Urine 0-4 /hpf (0-5); WBC Urine 25-40 /hpf (0-5)
[2020-01-23 10:03] LABS: Creatinine Urine, Random 16 mg/dL (28-217); Total Protein, Random Urine 4.8 mg/dL (0.0-20.0)
== END 2020-01-23 08:26 | disposition home or self-care (01) ==
PROVIDERS: PCP Family Medicine; Visit Provider Internal Medicine Nephrology
DX: Z94.0 Kidney transplant status (principal); Z79.899 Other long term (current) drug therapy; E79.0 Hyperuricemia without signs of inflammatory arthritis and tophaceous disease; N18.9 Chronic kidney disease, unspecified; E83.9 Disorder of mineral metabolism, unspecified; M89.9 Disorder of bone, unspecified
CPT/HCPCS: 36415; 80053; 80197; 81001; 82575; 83735; 84100; 84156; 85025; 87077; 87086; 87186

== ENCOUNTER 2020-02-24 08:02 | Outpatient (CLI) | payer MEDICARE, OTHER, SELFPAY ==
[2020-02-24 09:01] LABS: Basophils # 0.1 10^3/uL (0.0-0.1); Basophils % 0.6 %; Eosinophils # 0.3 10^3/uL (0.0-0.8); Hematocrit 44.4 % (37.0-47.0); Hemoglobin 14.1 g/dL (11.5-15.3); Lymphocytes # 0.8 10^3/uL (0.8-4.8); Lymphocytes % 9.8 %; Mean Corpuscular HGB Conc 31.8 g/dL (30.0-36.0); Mean Corpuscular Hemoglobin 29.7 pg (28.0-34.0); Mean Corpuscular Volume 93.5 fL (81-99); Mean Platelet Volume 8.7 fL (7.4-10.4); Monocytes # 0.4 10^3/uL (0.2-0.9); Monocytes % 5.5 %; Neutrophils # 6.37 10^3/uL (1.8-7.7); Neutrophils % 79.8 %; Nucleated Red Blood Cells % 0 %; Platelet Count 184 10^3/cmm (130-400); Red Blood Count 4.75 10^6/uL (4.1-5.3); Red Cell Distribution Width 13.1 % (12.1-15.1)
[2020-02-24 09:22] LABS: Alanine Aminotransferase 16 U/L (0-33); Albumin Level 4.5 g/dL (3.5-5.2); Alkaline Phosphatase 66 IU/L (35-105); Anion Gap 14.9 (5-19); Aspartate Amino Transferase 16 U/L (0-32); Blood Urea Nitrogen 20 mg/dL (8-23); Carbon Dioxide 27 mmol/L (22-29); Chloride 103 mmol/L (98-107); Globulin 2.3 g/dL (1.3-4.6); Glomerular Filtration Rate 50.7 mL/min (90-130); Glucose 99 mg/dL (65-115); Magnesium 1.7 mg/dL (1.7-2.3); Osmolality Calculated 293 mOsm/kg (285-295); Phosphorus 2.8 mg/dL (2.5-4.5); Potassium 4.9 mmol/L (3.5-5.1); Sodium 140 mmol/L (136-145); Total Bilirubin 0.6 mg/dL (0.15-1.2); Total Protein 6.8 g/dL (6.6-8.7)
[2020-02-24 09:53] LABS: Add Urine Culture? Yes; Bacteria Urine 3+ /hpf; Bilirubin Urine Neg (Negative); Blood Urine Neg (Negative); Glucose Urine UA Norm (Normal); Ketones Urine Negative (Negative); Leukocyte Esterase Urine 2+ (Negative); Nitrate Urine Positive (Negative); Protein Urine Neg (Negative); Specific Gravity, Urine 1.005 (1.005-1.030); Urine Appearance SL Hazy (CLEAR); Urine Color Straw (Yellow); Urobilinogen Urine Norm (Negative); WBC Urine 15-25 /hpf (0-5); pH Urine 6 (5-7)
[2020-02-24 10:22] LABS: Urine Creatinine 24 mg/dL (28-217)
[2020-02-24 10:27] LABS: Total Protein, Random Urine 6.1 mg/dL (0.0-20.0)
== END 2020-02-24 08:03 | disposition home or self-care (01) ==
LOC: LAB 08:17
PROVIDERS: PCP Family Medicine; Visit Provider Internal Medicine Nephrology
DX: Z94.0 Kidney transplant status (principal); E79.0 Hyperuricemia without signs of inflammatory arthritis and tophaceous disease; Z79.899 Other long term (current) drug therapy; N18.9 Chronic kidney disease, unspecified; E83.9 Disorder of mineral metabolism, unspecified; M89.9 Disorder of bone, unspecified
CPT/HCPCS: 36415; 80053; 80197; 81001; 82570; 83735; 84100; 84156; 85025

== ENCOUNTER 2020-03-23 09:09 | Outpatient (CLI) | payer MEDICARE, OTHER, SELFPAY ==
[2020-03-23 10:26] LABS: Basophils # 0.1 10^3/uL (0.0-0.1); Basophils % 0.7 %; Eosinophils # 0.3 10^3/uL (0.0-0.8); Eosinophils % 2.9 %; Hematocrit 44.8 % (37.0-47.0); Hemoglobin 14.1 g/dL (11.5-15.3); Lymphocytes # 0.8 10^3/uL (0.8-4.8); Lymphocytes % 7.7 %; Mean Corpuscular HGB Conc 31.5 g/dL (30.0-36.0); Mean Corpuscular Hemoglobin 29.6 pg (28.0-34.0); Mean Corpuscular Volume 93.9 fL (81-99); Mean Platelet Volume 8.8 fL (7.4-10.4); Monocytes # 0.4 10^3/uL (0.2-0.9); Monocytes % 4.3 %; Neutrophils # 8.55 10^3/uL (1.8-7.7); Nucleated Red Blood Cells % 0 %; Platelet Count 230 10^3/cmm (130-400); Red Blood Count 4.77 10^6/uL (4.1-5.3); Red Cell Distribution Width 12.7 % (12.1-15.1); White Blood Count 10.2 10^3/uL (4.0-10.0)
[2020-03-23 11:02] LABS: Alanine Aminotransferase 14 U/L (0-33); Albumin Level 4.3 g/dL (3.5-5.2); Alkaline Phosphatase 76 IU/L (35-105); Anion Gap 13.3 (5-19); Aspartate Amino Transferase 15 U/L (0-32); Blood Urea Nitrogen 24 mg/dL (8-23); Calcium 9.4 mg/dL (8.5-10.5); Carbon Dioxide 27 mmol/L (22-29); Chloride 102 mmol/L (98-107); Chol HDL Ratio 3.08 mg/dL (0.0-4.40); Cholesterol 157 mg/dL (0-200); Globulin 2.9 g/dL (1.3-4.6); Glomerular Filtration Rate 63.9 mL/min (90-130); Glucose 87 mg/dL (65-115); HDL Cholesterol 51 mg/dL (60-100); LDL Cholesterol Calculated 85 mg/dL (50-129); LDL HDL Ratio 1.67 RATIO (0.00-3.22); Magnesium 1.8 mg/dL (1.7-2.3); Osmolality Calculated 289 mOsm/kg (285-295); Phosphorus 3.5 mg/dL (2.5-4.5); Potassium 4.3 mmol/L (3.5-5.1); Sodium 138 mmol/L (136-145); Total Bilirubin 0.4 mg/dL (0.15-1.2); Total Protein 7.2 g/dL (6.6-8.7); Triglycerides 106 mg/dL (0-150); Uric Acid 4.4 mg/dL (2.4-5.7)
[2020-03-23 11:11] LABS: Urine Color Yellow (Yellow)
[2020-03-23 11:12] LABS: Bilirubin Urine Neg (Negative); Blood Urine Neg (Negative); Glucose Urine UA Norm (Normal); Ketones Urine Negative (Negative); Leukocyte Esterase Urine Negative (Negative); Nitrate Urine Negative (Negative); Protein Urine Neg (Negative); Specific Gravity, Urine 1.015 (1.005-1.030); Urine Appearance Clear (CLEAR); Urobilinogen Urine Norm (Negative); pH Urine 6.5 (5-7)
[2020-03-23 11:13] LABS: Add Urine Culture? No; Bacteria Urine TRACE /hpf; Squamous Epithelial Cell Urine 0-4 /hpf (0-5); WBC Urine 0-4 /hpf (0-5)
[2020-03-23 12:38] LABS: Urine Creatinine 40 mg/dL (28-217); Urine Protein Random 5 mg/dL
[2020-03-23 12:47] LABS: Calcium 9.6 mg/dL (8.5-10.5); Parathyroid Hormone 52.4 pg/mL (15-65)
[2020-03-23 12:58] LABS: 25 Hydroxy Vitamin D 30 ng/mL (30-100)
[2020-03-26 13:04] LABS: Urine BK Virus DNA Quant NO DNA DETECTED copies/mL
[2020-03-26 18:14] LABS: CMV DNA By PCR <200 IU/mL; CMV DNA, QN PCR <2.30 Log IU/mL; SOURCE WHOLE BLOOD
== END 2020-03-23 09:10 | disposition home or self-care (01) ==
PROVIDERS: PCP Family Medicine; Visit Provider Internal Medicine Nephrology
DX: Z94.0 Kidney transplant status (principal); E79.0 Hyperuricemia without signs of inflammatory arthritis and tophaceous disease; Z79.899 Other long term (current) drug therapy; N18.9 Chronic kidney disease, unspecified; E83.9 Disorder of mineral metabolism, unspecified; M89.9 Disorder of bone, unspecified
CPT/HCPCS: 36415; 80053; 80061; 80197; 81001; 82306; 82310; 82570; 83735; 83970; 84100; 84156; 84550; 85025; 87496; 87799

== ENCOUNTER 2020-03-26 14:38 | Outpatient (CLI) | payer MEDICARE, OTHER, SELFPAY ==
[2020-03-26] MEDS: denosumab 60 mg SDV SUBCUT (15:00)
== END 2020-03-26 14:39 | disposition home or self-care (01) ==
PROVIDERS: PCP Family Medicine; Visit Provider Family Medicine
DX: M81.0 Age-related osteoporosis without current pathological fracture (principal); E83.52 Hypercalcemia; E05.90 Thyrotoxicosis, unspecified without thyrotoxic crisis or storm
CPT/HCPCS: 96372; J0897

== ENCOUNTER 2020-04-20 08:49 | Outpatient (CLI) | payer MEDICARE, OTHER, SELFPAY ==
[2020-04-20 09:19] LABS: Basophils # 0.1 10^3/uL (0.0-0.1); Basophils % 0.7 %; Eosinophils # 0.3 10^3/uL (0.0-0.8); Eosinophils % 3.1 %; Hematocrit 43.8 % (37.0-47.0); Hemoglobin 14.1 g/dL (11.5-15.3); Lymphocytes # 0.8 10^3/uL (0.8-4.8); Mean Corpuscular HGB Conc 32.2 g/dL (30.0-36.0); Mean Corpuscular Volume 93.2 fL (81-99); Mean Platelet Volume 8.6 fL (7.4-10.4); Monocytes # 0.5 10^3/uL (0.2-0.9); Monocytes % 4.9 %; Neutrophils # 7.64 10^3/uL (1.8-7.7); Neutrophils % 81.9 %; Nucleated Red Blood Cells % 0 %; Platelet Count 207 10^3/cmm (130-400); Red Cell Distribution Width 12.7 % (12.1-15.1); White Blood Count 9.3 10^3/uL (4.0-10.0)
[2020-04-20 10:01] LABS: Urine Appearance Clear (CLEAR); Urine Color Yellow (Yellow)
[2020-04-20 10:02] LABS: Add Urine Culture? Yes; Bacteria Urine TRACE /hpf; Bilirubin Urine Neg (Negative); Blood Urine 2+ (Negative); Glucose Urine UA Norm (Normal); Ketones Urine Negative (Negative); Leukocyte Esterase Urine 2+ (Negative); Nitrate Urine Negative (Negative); Protein Urine Neg (Negative); RBC Urine RARE /hpf (0-2); Urobilinogen Urine Norm (Negative); WBC Urine RARE /hpf (0-5); pH Urine 5 (5-7)
[2020-04-20 10:19] LABS: Alanine Aminotransferase 11 U/L (0-33); Albumin Level 4.3 g/dL (3.5-5.2); Alkaline Phosphatase 72 IU/L (35-105); Anion Gap 13.6 (5-19); Aspartate Amino Transferase 13 U/L (0-32); Blood Urea Nitrogen 23 mg/dL (8-23); Calcium 9.5 mg/dL (8.5-10.5); Carbon Dioxide 26 mmol/L (22-29); Chloride 102 mmol/L (98-107); Globulin 2.5 g/dL (1.3-4.6); Glomerular Filtration Rate 56.6 mL/min (90-130); Glucose 97 mg/dL (65-115); Magnesium 1.5 mg/dL (1.7-2.3); Osmolality Calculated 288 mOsm/kg (285-295); Phosphorus 3.8 mg/dL (2.5-4.5); Potassium 4.6 mmol/L (3.5-5.1); Sodium 137 mmol/L (136-145); Thyroid Stimulating Hormone 0.56 uIU/mL (0.27-4.20); Total Bilirubin 0.4 mg/dL (0.15-1.2); Total Protein 6.8 g/dL (6.6-8.7); Uric Acid 3.7 mg/dL (2.4-5.7)
[2020-04-20 10:24] LABS: Urine Creatinine 59 mg/dL (28-217); Urine Protein Random 9 mg/dL
[2020-04-20 10:33] LABS: UPRO/UCREAT Ratio 0.15 mg/mg CR
== END 2020-04-20 08:50 | disposition home or self-care (01) ==
PROVIDERS: PCP Family Medicine; Visit Provider Family Medicine
DX: E03.9 Hypothyroidism, unspecified (principal); Z94.0 Kidney transplant status; Z79.899 Other long term (current) drug therapy; N18.9 Chronic kidney disease, unspecified; E83.9 Disorder of mineral metabolism, unspecified; M89.9 Disorder of bone, unspecified; E79.0 Hyperuricemia without signs of inflammatory arthritis and tophaceous disease
CPT/HCPCS: 36415; 80053; 80197; 81001; 82570; 83735; 84100; 84156; 84443; 84550; 85025; 87086

== ENCOUNTER 2020-05-25 07:57 | Outpatient (CLI) | payer MEDICARE, OTHER, SELFPAY ==
[2020-05-25 08:44] LABS: Basophils # 0.1 10^3/uL (0.0-0.1); Basophils % 0.8 %; Eosinophils # 0.3 10^3/uL (0.0-0.8); Eosinophils % 3.8 %; Hematocrit 45.2 % (37.0-47.0); Hemoglobin 14.1 g/dL (11.5-15.3); Lymphocytes # 0.8 10^3/uL (0.8-4.8); Lymphocytes % 9.8 %; Mean Corpuscular HGB Conc 31.2 g/dL (30.0-36.0); Mean Corpuscular Hemoglobin 29.7 pg (28.0-34.0); Mean Corpuscular Volume 95.4 fL (81-99); Mean Platelet Volume 8.5 fL (7.4-10.4); Monocytes # 0.5 10^3/uL (0.2-0.9); Monocytes % 5.8 %; Neutrophils # 6.68 10^3/uL (1.8-7.7); Neutrophils % 79.4 %; Nucleated Red Blood Cells % 0 %; Platelet Count 222 10^3/cmm (130-400); Red Blood Count 4.74 10^6/uL (4.1-5.3); Red Cell Distribution Width 12.8 % (12.1-15.1); White Blood Count 8.4 10^3/uL (4.0-10.0)
[2020-05-25 09:01] LABS: Alanine Aminotransferase 12 U/L (0-33); Albumin Level 4.3 g/dL (3.5-5.2); Alkaline Phosphatase 72 IU/L (35-105); Anion Gap 12.7 (5-19); Aspartate Amino Transferase 13 U/L (0-32); Blood Urea Nitrogen 20 mg/dL (8-23); Calcium 9.2 mg/dL (8.5-10.5); Carbon Dioxide 27 mmol/L (22-29); Chloride 101 mmol/L (98-107); Globulin 2.8 g/dL (1.3-4.6); Glomerular Filtration Rate 73.2 mL/min (90-130); Glucose 100 mg/dL (65-115); Magnesium 1.9 mg/dL (1.7-2.3); Osmolality Calculated 285 mOsm/kg (285-295); Phosphorus 3.1 mg/dL (2.5-4.5); Potassium 4.7 mmol/L (3.5-5.1); Sodium 136 mmol/L (136-145); Total Bilirubin 0.4 mg/dL (0.15-1.2); Total Protein 7.1 g/dL (6.6-8.7)
[2020-05-25 09:11] LABS: Creatinine Urine, Random 76 mg/dL (28-217); Total Protein, Random Urine 7.6 mg/dL (0.0-20.0)
[2020-05-25 09:33] LABS: Add Urine Culture? No; Bacteria Urine TRACE /hpf; Bilirubin Urine Neg (Negative); Blood Urine Neg (Negative); Glucose Urine UA Norm (Normal); Ketones Urine Negative (Negative); Leukocyte Esterase Urine Negative (Negative); Nitrate Urine Negative (Negative); Protein Urine Neg (Negative); Specific Gravity, Urine 1.005 (1.005-1.030); Urine Appearance Clear (CLEAR); Urine Color Yellow (Yellow); Urobilinogen Urine Norm (Negative); WBC Urine RARE /hpf (0-5); pH Urine 7 (5-7)
== END 2020-05-25 07:58 | disposition home or self-care (01) ==
LOC: LAB 08:13
PROVIDERS: PCP Family Medicine; Visit Provider Internal Medicine Nephrology
DX: Z94.0 Kidney transplant status (principal); E79.0 Hyperuricemia without signs of inflammatory arthritis and tophaceous disease; Z79.899 Other long term (current) drug therapy; N18.9 Chronic kidney disease, unspecified; E83.9 Disorder of mineral metabolism, unspecified; M89.9 Disorder of bone, unspecified
CPT/HCPCS: 36415; 80053; 80197; 81001; 82575; 83735; 84100; 84156; 85025

== ENCOUNTER 2020-06-23 08:11 | Outpatient (CLI) | payer MEDICARE, OTHER, SELFPAY ==
[2020-06-23 09:13] LABS: Basophils # 0.1 10^3/uL (0.0-0.1); Basophils % 1.3 %; Eosinophils # 0.3 10^3/uL (0.0-0.8); Eosinophils % 3.6 %; Hematocrit 42.5 % (37.0-47.0); Hemoglobin 13.2 g/dL (11.5-15.3); Lymphocytes # 0.8 10^3/uL (0.8-4.8); Lymphocytes % 10.3 %; Mean Corpuscular HGB Conc 31.1 g/dL (30.0-36.0); Mean Corpuscular Hemoglobin 29.1 pg (28.0-34.0); Mean Corpuscular Volume 93.6 fL (81-99); Mean Platelet Volume 8.5 fL (7.4-10.4); Monocytes # 0.5 10^3/uL (0.2-0.9); Monocytes % 6.8 %; Neutrophils # 6.17 10^3/uL (1.8-7.7); Neutrophils % 77.6 %; Nucleated Red Blood Cells % 0 %; Platelet Count 232 10^3/cmm (130-400); Red Blood Count 4.54 10^6/uL (4.1-5.3); Red Cell Distribution Width 13.4 % (12.1-15.1)
[2020-06-23 09:25] LABS: Bilirubin Urine Neg (Negative); Blood Urine Neg (Negative); Glucose Urine UA Norm (Normal); Ketones Urine Negative (Negative); Leukocyte Esterase Urine 2+ (Negative); Nitrate Urine Positive (Negative); Protein Urine Neg (Negative); Urine Appearance Cloudy (CLEAR); Urine Color Yellow (Yellow); Urobilinogen Urine Norm (Negative); pH Urine 7 (5-7)
[2020-06-23 09:26] LABS: Add Urine Culture? Yes; Bacteria Urine 3+ /hpf; WBC Urine >100 /hpf (0-5)
[2020-06-23 09:37] LABS: Calcium 9.3 mg/dL (8.5-10.5); Parathyroid Hormone 49.7 pg/mL (15-65)
[2020-06-23 09:39] LABS: Urine Creatinine 83 mg/dL (28-217)
[2020-06-23 09:41] LABS: UPRO/UCREAT Ratio 0.25 mg/mg CR; Urine Protein Random 21 mg/dL
[2020-06-23 09:44] LABS: 25 Hydroxy Vitamin D 42 ng/mL (30-100); Alanine Aminotransferase 12 U/L (0-33); Albumin Level 4.4 g/dL (3.5-5.2); Alkaline Phosphatase 78 IU/L (35-105); Anion Gap 14.5 (5-19); Aspartate Amino Transferase 12 U/L (0-32); Blood Urea Nitrogen 18 mg/dL (8-23); Calcium 9.3 mg/dL (8.5-10.5); Carbon Dioxide 25 mmol/L (22-29); Chloride 103 mmol/L (98-107); Chol HDL Ratio 3.49 mg/dL (0.0-4.40); Cholesterol 178 mg/dL (0-200); Globulin 2.5 g/dL (1.3-4.6); Glomerular Filtration Rate 63.9 mL/min (90-130); Glucose 103 mg/dL (65-115); HDL Cholesterol 51 mg/dL (60-100); LDL Cholesterol Calculated 97 mg/dL (50-129); Magnesium 1.8 mg/dL (1.7-2.3); Osmolality Calculated 288 mOsm/kg (285-295); Phosphorus 3.5 mg/dL (2.5-4.5); Potassium 4.5 mmol/L (3.5-5.1); Sodium 138 mmol/L (136-145); Total Bilirubin 0.5 mg/dL (0.15-1.2); Total Protein 6.9 g/dL (6.6-8.7); Triglycerides 150 mg/dL (0-150); Uric Acid 5.1 mg/dL (2.4-5.7)
[2020-06-25 11:02] LABS: BK VIRUS DNA, QN PCR NO DNA DETECTED copies/mL; SOURCE PLASMA
[2020-06-27 23:48] LABS: CMV DNA By PCR <200 IU/mL; CMV DNA, QN PCR <2.30 Log IU/mL; SOURCE WHOLE BLOOD
== END 2020-06-23 08:12 | disposition home or self-care (01) ==
LOC: LAB 08:27
PROVIDERS: PCP Family Medicine; Visit Provider Internal Medicine Nephrology
DX: E79.0 Hyperuricemia without signs of inflammatory arthritis and tophaceous disease (principal); Z94.0 Kidney transplant status; Z79.899 Other long term (current) drug therapy; N18.9 Chronic kidney disease, unspecified; E83.9 Disorder of mineral metabolism, unspecified; M89.9 Disorder of bone, unspecified
CPT/HCPCS: 36415; 80053; 80061; 80197; 81001; 82306; 82310; 82570; 83735; 83970; 84100; 84156; 84550; 85025; 87496; 87798

== ENCOUNTER 2020-07-23 07:55 | Outpatient (CLI) | payer MEDICARE, OTHER, SELFPAY ==
[2020-07-23 08:17] LABS: Basophils # 0.1 10^3/uL (0.0-0.1); Basophils % 0.5 %; Eosinophils # 0.3 10^3/uL (0.0-0.8); Eosinophils % 2.7 %; Hemoglobin 13.3 g/dL (11.5-15.3); Lymphocytes # 0.8 10^3/uL (0.8-4.8); Lymphocytes % 7.6 %; Mean Corpuscular HGB Conc 30.9 g/dL (30.0-36.0); Mean Corpuscular Hemoglobin 29.2 pg (28.0-34.0); Mean Corpuscular Volume 94.5 fL (81-99); Mean Platelet Volume 8.9 fL (7.4-10.4); Monocytes # 0.5 10^3/uL (0.2-0.9); Monocytes % 4.9 %; Neutrophils # 8.54 10^3/uL (1.8-7.7); Neutrophils % 83.9 %; Nucleated Red Blood Cells % 0 %; Platelet Count 211 10^3/cmm (130-400); Red Blood Count 4.55 10^6/uL (4.1-5.3); Red Cell Distribution Width 13.4 % (12.1-15.1); White Blood Count 10.2 10^3/uL (4.0-10.0)
[2020-07-23 08:43] LABS: Bilirubin Urine Neg (Negative); Blood Urine 2+ (Negative); Glucose Urine UA Norm (Normal); Ketones Urine Negative (Negative); Leukocyte Esterase Urine 2+ (Negative); Nitrate Urine Negative (Negative); Protein Urine Neg (Negative); Urine Appearance Cloudy (CLEAR); Urine Color Yellow (Yellow); Urobilinogen Urine Norm (Negative); pH Urine 6.5 (5-7)
[2020-07-23 08:45] LABS: Alanine Aminotransferase 10 U/L (0-33); Albumin Level 4.4 g/dL (3.5-5.2); Alkaline Phosphatase 73 IU/L (35-105); Anion Gap 15.3 (5-19); Aspartate Amino Transferase 13 U/L (0-32); Blood Urea Nitrogen 20 mg/dL (8-23); Calcium 9.3 mg/dL (8.5-10.5); Carbon Dioxide 26 mmol/L (22-29); Chloride 103 mmol/L (98-107); Globulin 2.8 g/dL (1.3-4.6); Glomerular Filtration Rate 50.7 mL/min (90-130); Glucose 82 mg/dL (65-115); Magnesium 2.1 mg/dL (1.7-2.3); Osmolality Calculated 292 mOsm/kg (285-295); Phosphorus 3.5 mg/dL (2.5-4.5); Potassium 4.3 mmol/L (3.5-5.1); Sodium 140 mmol/L (136-145); Total Bilirubin 0.3 mg/dL (0.15-1.2); Total Protein 7.2 g/dL (6.6-8.7)
[2020-07-23 08:45] LABS: Bacteria Urine 2+ /hpf; RBC Urine 0-4 /hpf (0-2); WBC Urine >100 /hpf (0-5)
[2020-07-23 08:46] LABS: Add Urine Culture? Yes
[2020-07-23 08:47] LABS: Creatinine Urine, Random 77 mg/dL (28-217); Total Protein, Random Urine 20.9 mg/dL (0.0-20.0)
== END 2020-07-23 07:56 | disposition home or self-care (01) ==
PROVIDERS: PCP Family Medicine; Visit Provider Internal Medicine Nephrology
DX: Z94.0 Kidney transplant status (principal); E79.0 Hyperuricemia without signs of inflammatory arthritis and tophaceous disease; Z79.899 Other long term (current) drug therapy; N18.9 Chronic kidney disease, unspecified; E83.9 Disorder of mineral metabolism, unspecified; M89.9 Disorder of bone, unspecified
CPT/HCPCS: 36415; 80053; 80197; 81001; 82575; 83735; 84100; 84156; 85025

== ENCOUNTER 2020-08-13 11:56 | Outpatient (CLI) | payer MEDICARE, OTHER, SELFPAY ==
--- NOTE | 2020-08-13 12:03 | MM_ITS ---
WS: [id number] BILATERAL SCREENING DIGITAL MAMMOGRAM WITH CAD HISTORY: SCREENING COMPARISON: 08/12/2019 and 08/10/2018 Bilateral CC and MLO views submitted. Computer aided detection analyzed. Breast composition: The breasts are heterogeneously dense, which may obscure small masses. No suspici ous masses, microcalcifications or architectural distortion. Scattered asymmetries are stable. No mas s identified. MM/[id number] IMPRESSION: BI-RADS: 2-Benign FOLLOW UP: 1 Year Follow-up
== END 2020-08-13 11:57 | disposition home or self-care (01) ==
LOC: RADSHAW 12:02
PROVIDERS: PCP Family Medicine; Visit Provider Family Medicine
DX: Z12.31 Encounter for screening mammogram for malignant neoplasm of breast (principal)
CPT/HCPCS: 77067

== ENCOUNTER 2020-08-26 07:59 | Outpatient (CLI) | payer MEDICARE, OTHER, SELFPAY ==
[2020-08-26 08:46] LABS: Basophils # 0.1 10^3/uL (0.0-0.1); Basophils % 0.8 %; Eosinophils # 0.3 10^3/uL (0.0-0.8); Eosinophils % 3.2 %; Hematocrit 42.1 % (37.0-47.0); Hemoglobin 13.3 g/dL (11.5-15.3); Lymphocytes # 0.7 10^3/uL (0.8-4.8); Mean Corpuscular HGB Conc 31.6 g/dL (30.0-36.0); Mean Corpuscular Hemoglobin 29.5 pg (28.0-34.0); Mean Corpuscular Volume 93.3 fL (81-99); Mean Platelet Volume 8.9 fL (7.4-10.4); Monocytes # 0.5 10^3/uL (0.2-0.9); Monocytes % 5.6 %; Neutrophils # 6.85 10^3/uL (1.8-7.7); Nucleated Red Blood Cells % 0 %; Platelet Count 229 10^3/cmm (130-400); Red Blood Count 4.51 10^6/uL (4.1-5.3); Red Cell Distribution Width 13.3 % (12.1-15.1); White Blood Count 8.4 10^3/uL (4.0-10.0)
[2020-08-26 09:05] LABS: Alanine Aminotransferase 8 U/L (0-33); Albumin Level 4.1 g/dL (3.5-5.2); Alkaline Phosphatase 72 IU/L (35-105); Anion Gap 14.2 (5-19); Aspartate Amino Transferase 12 U/L (0-32); Blood Urea Nitrogen 13 mg/dL (8-23); Calcium 8.7 mg/dL (8.5-10.5); Carbon Dioxide 23 mmol/L (22-29); Chloride 106 mmol/L (98-107); Globulin 2.6 g/dL (1.3-4.6); Glomerular Filtration Rate 56.6 mL/min (90-130); Glucose 100 mg/dL (65-115); Osmolality Calculated 288 mOsm/kg (285-295); Phosphorus 3.2 mg/dL (2.5-4.5); Potassium 4.2 mmol/L (3.5-5.1); Sodium 139 mmol/L (136-145); Total Bilirubin 0.4 mg/dL (0.15-1.2); Total Protein 6.7 g/dL (6.6-8.7)
[2020-08-26 09:16] LABS: Urine Creatinine 52 mg/dL (28-217); Urine Protein Random 15 mg/dL
[2020-08-26 09:28] LABS: Bilirubin Urine Neg (Negative); Blood Urine 2+ (Negative); Glucose Urine UA Norm (Normal); Ketones Urine Negative (Negative); Leukocyte Esterase Urine 2+ (Negative); Nitrate Urine Negative (Negative); Protein Urine Neg (Negative); Specific Gravity, Urine 1.005 (1.005-1.030); Urine Appearance Hazy (CLEAR); Urine Color Yellow (Yellow); Urobilinogen Urine Norm (Negative); pH Urine 7 (5-7)
[2020-08-26 09:29] LABS: Add Urine Culture? Yes; Bacteria Urine 3+ /hpf; Squamous Epithelial Cell Urine 0-4 /hpf (0-5); WBC Urine >100 /hpf (0-5)
== END 2020-08-26 08:00 | disposition home or self-care (01) ==
PROVIDERS: PCP Family Medicine; Visit Provider Internal Medicine Nephrology
DX: Z94.0 Kidney transplant status (principal); E79.0 Hyperuricemia without signs of inflammatory arthritis and tophaceous disease; Z79.899 Other long term (current) drug therapy; N18.9 Chronic kidney disease, unspecified; E83.9 Disorder of mineral metabolism, unspecified; M89.9 Disorder of bone, unspecified
CPT/HCPCS: 36415; 80053; 80197; 81001; 82570; 83735; 84100; 84156; 85025

== ENCOUNTER 2020-09-24 08:59 | Outpatient (CLI) | payer MEDICARE, OTHER, SELFPAY ==
[2020-09-24 09:51] LABS: Basophils % 0.5 %; Eosinophils # 0.2 10^3/uL (0.0-0.8); Eosinophils % 2.6 %; Hematocrit 42.5 % (37.0-47.0); Lymphocytes # 0.7 10^3/uL (0.8-4.8); Lymphocytes % 8.4 %; Mean Corpuscular HGB Conc 30.6 g/dL (30.0-36.0); Mean Corpuscular Hemoglobin 28.6 pg (28.0-34.0); Mean Corpuscular Volume 93.4 fL (81-99); Mean Platelet Volume 8.8 fL (7.4-10.4); Monocytes # 0.4 10^3/uL (0.2-0.9); Monocytes % 5.4 %; Neutrophils # 6.38 10^3/uL (1.8-7.7); Neutrophils % 82.8 %; Nucleated Red Blood Cells % 0 %; Platelet Count 189 10^3/cmm (130-400); Red Blood Count 4.55 10^6/uL (4.1-5.3); Red Cell Distribution Width 12.9 % (12.1-15.1); White Blood Count 7.7 10^3/uL (4.0-10.0)
[2020-09-24 10:41] LABS: Alanine Aminotransferase 8 U/L (0-33); Alkaline Phosphatase 71 IU/L (35-105); Anion Gap 14.2 (5-19); Aspartate Amino Transferase 12 U/L (0-32); Blood Urea Nitrogen 19 mg/dL (8-23); Carbon Dioxide 26 mmol/L (22-29); Chloride 101 mmol/L (98-107); Globulin 2.5 g/dL (1.3-4.6); Glomerular Filtration Rate 56.6 mL/min (90-130); Glucose 107 mg/dL (65-115); Magnesium 1.7 mg/dL (1.7-2.3); Osmolality Calculated 287 mOsm/kg (285-295); Phosphorus 3.1 mg/dL (2.5-4.5); Potassium 4.2 mmol/L (3.5-5.1); Sodium 137 mmol/L (136-145); Total Bilirubin 0.3 mg/dL (0.15-1.2); Total Protein 6.5 g/dL (6.6-8.7)
[2020-09-24 10:42] LABS: Bilirubin Urine Neg (Negative); Blood Urine 2+ (Negative); Glucose Urine UA Norm (Normal); Ketones Urine Negative (Negative); Leukocyte Esterase Urine 2+ (Negative); Nitrate Urine Positive (Negative); Protein Urine Neg (Negative); Urine Appearance Hazy (CLEAR); Urine Color Straw (Yellow); Urobilinogen Urine Norm (Negative); pH Urine 6.5 (5-7)
[2020-09-24 10:45] LABS: Parathyroid Hormone 57.2 pg/mL (15-65)
[2020-09-24 10:47] LABS: Bacteria Urine 3+ /hpf; RBC Urine 0-4 /hpf (0-2); Squamous Epithelial Cell Urine 15-25 /hpf (0-5); WBC Urine >100 /hpf (0-5)
[2020-09-24 10:48] LABS: Add Urine Culture? No
[2020-09-24 10:57] LABS: 25 Hydroxy Vitamin D 42 ng/mL (30-100); Chol HDL Ratio 3.32 mg/dL (0.0-4.40); Cholesterol 136 mg/dL (0-200); HDL Cholesterol 41 mg/dL (60-100); LDL Cholesterol Calculated 69 mg/dL (50-129); Triglycerides 130 mg/dL (0-150); Uric Acid 3.9 mg/dL (2.4-5.7); VLDL Cholestrol Calculation 26 mg/dL (0-30)
[2020-09-24 11:15] LABS: Urine Creatinine 67 mg/dL (28-217)
[2020-09-24 11:20] LABS: Total Protein, Random Urine 15.4 mg/dL (0.0-20.0)
[2020-09-28 01:18] LABS: CMV DNA By PCR <200 IU/mL; CMV DNA, QN PCR <2.30 Log IU/mL; SOURCE BLOOD
[2020-09-28 17:18] LABS: BK VIRUS DNA, QN PCR NO DNA DETECTED copies/mL; SOURCE WHOLE BLOOD
== END 2020-09-24 09:00 | disposition home or self-care (01) ==
PROVIDERS: PCP Family Medicine; Visit Provider Nurse Practitioner
DX: Z94.0 Kidney transplant status (principal); E79.0 Hyperuricemia without signs of inflammatory arthritis and tophaceous disease; D84.9 Immunodeficiency, unspecified; Z79.899 Other long term (current) drug therapy; N18.9 Chronic kidney disease, unspecified; E83.9 Disorder of mineral metabolism, unspecified; M89.9 Disorder of bone, unspecified; E78.5 Hyperlipidemia, unspecified
CPT/HCPCS: 36415; 80053; 80061; 80197; 81001; 82306; 82310; 82570; 83735; 83970; 84100; 84156; 84550; 85025; 87496; 87798

== ENCOUNTER 2020-09-29 13:38 | Outpatient (CLI) | payer MEDICARE, OTHER, SELFPAY ==
[2020-09-29 14:10] VITALS: BP 140/76; PULSE 66; RESP 18; TEMP 36.1; O2SAT 100
[2020-09-29] MEDS: denosumab 60 mg SDV SUBCUT (14:15)
== END 2020-09-29 13:39 | disposition home or self-care (01) ==
LOC: ONCMED 13:44
PROVIDERS: PCP Family Medicine; Referring Provider Family Medicine; Visit Provider Family Medicine
DX: M81.0 Age-related osteoporosis without current pathological fracture (principal); Z79.899 Other long term (current) drug therapy
CPT/HCPCS: 96372; J0897

== ENCOUNTER 2020-10-21 07:52 | Outpatient (CLI) | payer MEDICARE, OTHER, SELFPAY ==
[2020-10-21 09:34] LABS: Alanine Aminotransferase 8 U/L (0-33); Albumin Level 4.2 g/dL (3.5-5.2); Alkaline Phosphatase 76 IU/L (35-105); Anion Gap 18.1 (5-19); Aspartate Amino Transferase 13 U/L (0-32); Blood Urea Nitrogen 13 mg/dL (8-23); Calcium 9.3 mg/dL (8.5-10.5); Carbon Dioxide 21 mmol/L (22-29); Chloride 102 mmol/L (98-107); Globulin 2.6 g/dL (1.3-4.6); Glomerular Filtration Rate 56.4 mL/min (90-130); Glucose 116 mg/dL (65-115); Magnesium 1.4 mg/dL (1.7-2.3); Osmolality Calculated 285 mOsm/kg (285-295); Phosphorus 3.1 mg/dL (2.5-4.5); Potassium 4.1 mmol/L (3.5-5.1); Sodium 137 mmol/L (136-145); Thyroid Stimulating Hormone 0.43 uIU/mL (0.27-4.20); Total Bilirubin 0.5 mg/dL (0.15-1.2); Total Protein 6.8 g/dL (6.6-8.7)
[2020-10-21 09:36] LABS: Bilirubin Urine Neg (Negative); Blood Urine 3+ (Negative); Glucose Urine UA Norm (Normal); Ketones Urine Negative (Negative); Leukocyte Esterase Urine 2+ (Negative); Nitrate Urine Negative (Negative); Protein Urine Neg (Negative); Specific Gravity, Urine 1.005 (1.005-1.030); Urine Appearance Cloudy (CLEAR); Urine Color Yellow (Yellow); Urobilinogen Urine Norm (Negative); pH Urine 6.5 (5-7)
[2020-10-21 09:37] LABS: Add Urine Culture? Yes; Bacteria Urine 3+ /hpf; RBC Urine 15-25 /hpf (0-2); WBC Urine 80-100 /hpf (0-5)
[2020-10-21 09:47] LABS: Urine Creatinine 78 mg/dL (28-217)
[2020-10-21 09:53] LABS: Total Protein, Random Urine 29.8 mg/dL (0.0-20.0)
[2020-10-21 21:18] LABS: Basophils # 0.1 10^3/uL (0.0-0.1); Basophils % 0.6 %; Eosinophils # 0.1 10^3/uL (0.0-0.8); Eosinophils % 1.5 %; Hematocrit 42.5 % (37.0-47.0); Hemoglobin 13.6 g/dL (11.5-15.3); Lymphocytes # 0.6 10^3/uL (0.8-4.8); Lymphocytes % 7.5 %; Mean Corpuscular Volume 90.6 fl (81-99); Mean Platelet Volume 9.8 fL (7.4-10.4); Monocytes # 0.6 10^3/uL (0.2-0.9); Monocytes % 6.6 %; Neutrophils # 7.04 10^3/uL (1.8-7.7); Neutrophils % 83.6 %; Nucleated Red Blood Cells % 0 %; Platelet Count 206 10^3/cmm (130-400); Red Blood Count 4.69 10^6/uL (4.1-5.3); Red Cell Distribution Width 13.4 % (12.1-15.1); White Blood Count 8.4 10^3/uL (4.0-10.0)
== END 2020-10-21 07:53 | disposition home or self-care (01) ==
LOC: LAB 08:06
PROVIDERS: PCP Family Medicine; Referring Provider Family Medicine; Visit Provider Nurse Practitioner
DX: Z79.899 Other long term (current) drug therapy (principal); Z94.0 Kidney transplant status; E79.0 Hyperuricemia without signs of inflammatory arthritis and tophaceous disease; D84.9 Immunodeficiency, unspecified; N18.9 Chronic kidney disease, unspecified; E83.9 Disorder of mineral metabolism, unspecified; M89.9 Disorder of bone, unspecified; E78.5 Hyperlipidemia, unspecified
CPT/HCPCS: 36415; 80053; 80197; 81001; 82570; 83735; 84100; 84156; 84443; 85025; 87077; 87086; 87186

== ENCOUNTER 2020-11-25 08:47 | Outpatient (CLI) | payer MEDICARE, OTHER, SELFPAY ==
[2020-11-25 09:29] LABS: Basophils % 0.3 %; Eosinophils # 0.3 10^3/uL (0.0-0.8); Eosinophils % 3.3 %; Hematocrit 42.3 % (37.0-47.0); Hemoglobin 13.3 g/dL (11.5-15.3); Lymphocytes # 0.7 10^3/uL (0.8-4.8); Lymphocytes % 7.4 %; Mean Corpuscular HGB Conc 31.4 g/dL (30.0-36.0); Mean Corpuscular Hemoglobin 29.1 pg (28.0-34.0); Mean Corpuscular Volume 92.6 fl (81-99); Mean Platelet Volume 8.6 fL (7.4-10.4); Monocytes # 0.4 10^3/uL (0.2-0.9); Monocytes % 4.1 %; Neutrophils # 7.72 10^3/uL (1.8-7.7); Neutrophils % 84.7 %; Nucleated Red Blood Cells % 0 %; Platelet Count 197 10^3/cmm (130-400); Red Blood Count 4.57 10^6/uL (4.1-5.3); Red Cell Distribution Width 14.1 % (12.1-15.1); White Blood Count 9.1 10^3/uL (4.0-10.0)
[2020-11-25 09:55] LABS: Alanine Aminotransferase 8 U/L (0-33); Albumin Level 4.1 g/dL (3.5-5.2); Alkaline Phosphatase 74 IU/L (35-105); Anion Gap 11.7 (5-19); Aspartate Amino Transferase 12 U/L (0-32); Blood Urea Nitrogen 19 mg/dL (8-23); Calcium 8.8 mg/dL (8.5-10.5); Carbon Dioxide 26 mmol/L (22-29); Chloride 106 mmol/L (98-107); Globulin 2.4 g/dL (1.3-4.6); Glomerular Filtration Rate 63.7 mL/min (90-130); Glucose 77 mg/dL (65-115); Magnesium 1.7 mg/dL (1.7-2.3); Osmolality Calculated 289 mOsm/kg (285-295); Phosphorus 2.4 mg/dL (2.5-4.5); Potassium 4.7 mmol/L (3.5-5.1); Sodium 139 mmol/L (136-145); Total Bilirubin 0.5 mg/dL (0.15-1.2); Total Protein 6.5 g/dL (6.6-8.7)
[2020-11-25 10:01] LABS: Bilirubin Urine Neg (Negative); Blood Urine Neg (Negative); Glucose Urine UA Norm (Normal); Ketones Urine Negative (Negative); Leukocyte Esterase Urine Negative (Negative); Nitrate Urine Negative (Negative); Protein Urine Neg (Negative); Specific Gravity, Urine 1.005 (1.005-1.030); Urine Appearance Clear (CLEAR); Urine Color Yellow (Yellow); Urobilinogen Urine Norm (Negative); pH Urine 6.5 (5-7)
[2020-11-25 10:13] LABS: Creatinine Urine, Random 62 mg/dL (28-217); Total Protein, Random Urine 9.1 mg/dL (0.0-20.0)
[2020-11-25 11:10] LABS: Bacteria Urine TRACE /hpf; RBC Urine 0-4 /hpf (0-2); WBC Urine 0-4 /hpf (0-5)
[2020-11-25 11:11] LABS: Add Urine Culture? No
== END 2020-11-25 08:48 | disposition home or self-care (01) ==
LOC: LAB 09:00
PROVIDERS: PCP Family Medicine; Visit Provider Nurse Practitioner
DX: Z94.0 Kidney transplant status (principal); E79.0 Hyperuricemia without signs of inflammatory arthritis and tophaceous disease; Z79.899 Other long term (current) drug therapy; N18.9 Chronic kidney disease, unspecified; E83.9 Disorder of mineral metabolism, unspecified; M89.9 Disorder of bone, unspecified; E78.5 Hyperlipidemia, unspecified
CPT/HCPCS: 80053; 80197; 81001; 82575; 83735; 84100; 84156; 85025

== ENCOUNTER 2020-12-29 07:56 | Outpatient (CLI) | payer MEDICARE, OTHER, SELFPAY ==
[2020-12-29 08:47] LABS: Basophils % 0.5 %; Eosinophils # 0.2 10^3/uL (0.0-0.8); Eosinophils % 2.7 %; Hematocrit 43.6 % (37.0-47.0); Hemoglobin 14.1 g/dL (11.5-15.3); Lymphocytes # 0.7 10^3/uL (0.8-4.8); Lymphocytes % 9.5 %; Mean Corpuscular HGB Conc 32.3 g/dL (30.0-36.0); Mean Corpuscular Volume 92.8 fl (81-99); Mean Platelet Volume 8.7 fL (7.4-10.4); Monocytes # 0.4 10^3/uL (0.2-0.9); Monocytes % 5.4 %; Neutrophils # 6.31 10^3/uL (1.8-7.7); Neutrophils % 81.5 %; Nucleated Red Blood Cells % 0 %; Platelet Count 202 10^3/cmm (130-400); White Blood Count 7.8 10^3/uL (4.0-10.0)
[2020-12-29 08:54] LABS: Bilirubin Urine Neg (Negative); Blood Urine Neg (Negative); Glucose Urine UA Norm (Normal); Ketones Urine Negative (Negative); Leukocyte Esterase Urine Negative (Negative); Nitrate Urine Negative (Negative); Protein Urine Neg (Negative); Specific Gravity, Urine 1.005 (1.005-1.030); Urine Appearance Clear (CLEAR); Urine Color Straw (Yellow); Urobilinogen Urine Norm (Negative); pH Urine 7 (5-7)
[2020-12-29 09:00] LABS: Add Urine Culture? No; Bacteria Urine TRACE /hpf; Squamous Epithelial Cell Urine 0-4 /hpf (0-5)
[2020-12-29 09:14] LABS: Creatinine Urine, Random 37 mg/dL (28-217); Total Protein, Random Urine 4.7 mg/dL (0.0-20.0)
[2020-12-29 09:21] LABS: Calcium 8.9 mg/dL (8.5-10.5)
[2020-12-29 09:27] LABS: 25 Hydroxy Vitamin D 42 ng/mL (30-100); Alanine Aminotransferase 9 U/L (0-33); Alkaline Phosphatase 68 IU/L (35-105); Anion Gap 15.3 (5-19); Aspartate Amino Transferase 12 U/L (0-32); Blood Urea Nitrogen 16 mg/dL (8-23); Calcium 8.9 mg/dL (8.5-10.5); Carbon Dioxide 25 mmol/L (22-29); Chloride 102 mmol/L (98-107); Cholesterol 165 mg/dL (0-200); Globulin 2.5 g/dL (1.3-4.6); Glomerular Filtration Rate 63.7 mL/min (90-130); Glucose 85 mg/dL (65-115); HDL Cholesterol 55 mg/dL (60-100); LDL Cholesterol Calculated 83 mg/dL (50-129); LDL HDL Ratio 1.51 RATIO (0.00-3.22); Osmolality Calculated 286 mOsm/kg (285-295); Phosphorus 3.2 mg/dL (2.5-4.5); Potassium 4.3 mmol/L (3.5-5.1); Sodium 138 mmol/L (136-145); Total Bilirubin 0.4 mg/dL (0.15-1.2); Total Protein 6.5 g/dL (6.6-8.7); Triglycerides 134 mg/dL (0-150); Uric Acid 3.1 mg/dL (2.4-5.7)
[2020-12-29 09:28] LABS: Parathyroid Hormone 73.3 pg/mL (15-65)
[2021-01-02 01:12] LABS: CMV DNA By PCR NOT DETECTED; CMV DNA, QN PCR NOT DETECTED Log IU/mL; SOURCE WHOLE BLOOD
== END 2020-12-29 07:57 | disposition home or self-care (01) ==
PROVIDERS: PCP Family Medicine; Visit Provider Nurse Practitioner
DX: Z94.0 Kidney transplant status (principal); E79.0 Hyperuricemia without signs of inflammatory arthritis and tophaceous disease; D84.9 Immunodeficiency, unspecified; Z79.899 Other long term (current) drug therapy; N18.9 Chronic kidney disease, unspecified; E83.9 Disorder of mineral metabolism, unspecified; M89.9 Disorder of bone, unspecified; E78.5 Hyperlipidemia, unspecified
CPT/HCPCS: 36415; 80053; 80061; 80197; 81001; 82306; 82310; 82575; 83735; 83970; 84100; 84156; 84550; 85025; 87086; 87496

== ENCOUNTER 2021-01-22 07:36 | Outpatient (CLI) | payer OTHER, SELFPAY ==
[2021-01-22 08:14] LABS: Basophils # 0.1 10^3/uL (0.0-0.1); Basophils % 0.8 %; Eosinophils # 0.2 10^3/uL (0.0-0.8); Eosinophils % 2.9 %; Hematocrit 43.1 % (37.0-47.0); Hemoglobin 13.5 g/dL (11.5-15.3); Lymphocytes # 0.8 10^3/uL (0.8-4.8); Lymphocytes % 9.4 %; Mean Corpuscular HGB Conc 31.3 g/dL (30.0-36.0); Mean Corpuscular Hemoglobin 29.3 pg (28.0-34.0); Mean Corpuscular Volume 93.7 fl (81-99); Mean Platelet Volume 8.8 fL (7.4-10.4); Monocytes # 0.5 10^3/uL (0.2-0.9); Monocytes % 6.4 %; Neutrophils # 6.37 10^3/uL (1.8-7.7); Neutrophils % 80.1 %; Nucleated Red Blood Cells % 0 %; Platelet Count 197 10^3/cmm (130-400); Red Cell Distribution Width 13.8 % (12.1-15.1)
[2021-01-22 08:24] LABS: Urine Creatinine 62 mg/dL (28-217)
[2021-01-22 08:26] LABS: Alanine Aminotransferase 10 U/L (0-33); Albumin Level 4.2 g/dL (3.5-5.2); Alkaline Phosphatase 70 IU/L (35-105); Anion Gap 13.1 (5-19); Aspartate Amino Transferase 13 U/L (0-32); Blood Urea Nitrogen 19 mg/dL (8-23); Calcium 8.8 mg/dL (8.5-10.5); Carbon Dioxide 28 mmol/L (22-29); Chloride 102 mmol/L (98-107); Globulin 2.6 g/dL (1.3-4.6); Glomerular Filtration Rate 56.4 mL/min (90-130); Glucose 82 mg/dL (65-115); Magnesium 1.8 mg/dL (1.7-2.3); Osmolality Calculated 289 mOsm/kg (285-295); Phosphorus 3.3 mg/dL (2.5-4.5); Potassium 4.1 mmol/L (3.5-5.1); Sodium 139 mmol/L (136-145); Total Bilirubin 0.3 mg/dL (0.15-1.2); Total Protein 6.8 g/dL (6.6-8.7)
[2021-01-22 08:27] LABS: Add Urine Culture? No; Bacteria Urine TRACE /hpf; Bilirubin Urine Neg (Negative); Blood Urine Neg (Negative); Glucose Urine UA Norm (Normal); Ketones Urine Negative (Negative); Leukocyte Esterase Urine 1+ (Negative); Mucus Urine TRACE /hpf; Nitrate Urine Negative (Negative); Protein Urine Neg (Negative); Squamous Epithelial Cell Urine 0-4 /hpf (0-5); Urine Appearance Clear (CLEAR); Urine Color Yellow (Yellow); Urobilinogen Urine Norm (Negative); WBC Urine 0-4 /hpf (0-5); pH Urine 7 (5-7)
[2021-01-22 08:29] LABS: Total Protein, Random Urine 6.1 mg/dL (0.0-20.0)
== END 2021-01-22 07:37 | disposition home or self-care (01) ==
LOC: LAB 07:44
PROVIDERS: PCP Family Medicine; Visit Provider Nurse Practitioner
DX: Z94.0 Kidney transplant status (principal); Z79.899 Other long term (current) drug therapy; E79.0 Hyperuricemia without signs of inflammatory arthritis and tophaceous disease; D84.9 Immunodeficiency, unspecified; N18.9 Chronic kidney disease, unspecified; E83.9 Disorder of mineral metabolism, unspecified; M89.9 Disorder of bone, unspecified; E78.5 Hyperlipidemia, unspecified
CPT/HCPCS: 36415; 80053; 80197; 81001; 82570; 83735; 84100; 84156; 85025; 87086

== ENCOUNTER 2021-02-24 08:47 | Outpatient (CLI) | payer OTHER, SELFPAY ==
[2021-02-24 09:25] LABS: Basophils # 0.1 10^3/uL (0.0-0.1); Basophils % 0.7 %; Eosinophils # 0.3 10^3/uL (0.0-0.8); Hemoglobin 13.8 g/dL (11.5-15.3); Lymphocytes # 0.9 10^3/uL (0.8-4.8); Lymphocytes % 9.6 %; Mean Corpuscular HGB Conc 32.1 g/dL (30.0-36.0); Mean Corpuscular Hemoglobin 29.7 pg (28.0-34.0); Mean Corpuscular Volume 92.5 fl (81-99); Mean Platelet Volume 8.5 fL (7.4-10.4); Monocytes # 0.5 10^3/uL (0.2-0.9); Monocytes % 5.6 %; Neutrophils # 7.38 10^3/uL (1.8-7.7); Neutrophils % 80.7 %; Nucleated Red Blood Cells % 0 %; Platelet Count 199 10^3/cmm (130-400); Red Blood Count 4.65 10^6/uL (4.1-5.3); Red Cell Distribution Width 13.5 % (12.1-15.1); White Blood Count 9.1 10^3/uL (4.0-10.0)
[2021-02-24 09:29] LABS: Bilirubin Urine Neg (Negative); Blood Urine Neg (Negative); Glucose Urine UA Norm (Normal); Ketones Urine Negative (Negative); Leukocyte Esterase Urine 2+ (Negative); Nitrate Urine Negative (Negative); Protein Urine Neg (Negative); Urine Appearance Clear (CLEAR); Urine Color Yellow (Yellow); Urobilinogen Urine Norm (Negative); pH Urine 6 (5-7)
[2021-02-24 09:35] LABS: Add Urine Culture? No; Bacteria Urine TRACE /hpf; WBC Urine 0-4 /hpf (0-5)
[2021-02-24 09:46] LABS: Urine Creatinine 78 mg/dL (28-217)
[2021-02-24 09:51] LABS: Total Protein, Random Urine 8.9 mg/dL (0.0-20.0)
[2021-02-24 09:55] LABS: Alanine Aminotransferase 10 U/L (0-33); Albumin Level 4.3 g/dL (3.5-5.2); Alkaline Phosphatase 58 IU/L (35-105); Anion Gap 19.1 (5-19); Aspartate Amino Transferase 13 U/L (0-32); Blood Urea Nitrogen 21 mg/dL (8-23); Calcium 8.8 mg/dL (8.5-10.5); Carbon Dioxide 21 mmol/L (22-29); Chloride 101 mmol/L (98-107); Globulin 2.5 g/dL (1.3-4.6); Glomerular Filtration Rate 72.9 mL/min (90-130); Glucose 93 mg/dL (65-115); Magnesium 1.6 mg/dL (1.7-2.3); Osmolality Calculated 287 mOsm/kg (285-295); Phosphorus 3.4 mg/dL (2.5-4.5); Potassium 4.1 mmol/L (3.5-5.1); Sodium 137 mmol/L (136-145); Total Bilirubin 0.6 mg/dL (0.15-1.2); Total Protein 6.8 g/dL (6.6-8.7)
== END 2021-02-24 08:48 | disposition home or self-care (01) ==
LOC: LAB 08:50
PROVIDERS: PCP Family Medicine; Visit Provider Nurse Practitioner
DX: Z94.0 Kidney transplant status (principal); E79.0 Hyperuricemia without signs of inflammatory arthritis and tophaceous disease; D84.9 Immunodeficiency, unspecified; Z79.899 Other long term (current) drug therapy; N18.9 Chronic kidney disease, unspecified; E83.9 Disorder of mineral metabolism, unspecified; M89.9 Disorder of bone, unspecified; E78.5 Hyperlipidemia, unspecified
CPT/HCPCS: 80053; 80197; 81001; 82570; 83735; 84100; 84156; 85025

== ENCOUNTER 2021-03-29 08:20 | Outpatient (CLI) | payer OTHER, SELFPAY ==
[2021-03-29 09:16] LABS: Basophils # 0.1 10^3/uL (0.0-0.1); Basophils % 0.6 %; Eosinophils # 0.2 10^3/uL (0.0-0.8); Eosinophils % 2.1 %; Hematocrit 41.6 % (37.0-47.0); Hemoglobin 13.4 g/dL (11.5-15.3); Lymphocytes # 0.8 10^3/uL (0.8-4.8); Lymphocytes % 8.1 %; Mean Corpuscular HGB Conc 32.2 g/dL (30.0-36.0); Mean Corpuscular Hemoglobin 29.6 pg (28.0-34.0); Mean Corpuscular Volume 91.8 fl (81-99); Mean Platelet Volume 8.9 fL (7.4-10.4); Monocytes # 0.4 10^3/uL (0.2-0.9); Monocytes % 4.2 %; Neutrophils # 8.27 10^3/uL (1.8-7.7); Neutrophils % 84.7 %; Nucleated Red Blood Cells % 0 %; Platelet Count 197 10^3/cmm (130-400); Red Blood Count 4.53 10^6/uL (4.1-5.3); Red Cell Distribution Width 13.2 % (12.1-15.1); White Blood Count 9.8 10^3/uL (4.0-10.0)
[2021-03-29 09:45] LABS: Urine Creatinine 27 mg/dL (28-217)
[2021-03-29 09:48] LABS: Alanine Aminotransferase 10 U/L (0-33); Albumin Level 4.3 g/dL (3.5-5.2); Alkaline Phosphatase 65 IU/L (35-105); Aspartate Amino Transferase 14 U/L (0-32); Blood Urea Nitrogen 20 mg/dL (8-23); Calcium 9.9 mg/dL (8.5-10.5); Carbon Dioxide 21 mmol/L (22-29); Chloride 103 mmol/L (98-107); Chol HDL Ratio 3.25 mg/dL (0.0-4.40); Cholesterol 156 mg/dL (0-200); Globulin 2.2 g/dL (1.3-4.6); Glomerular Filtration Rate 63.7 mL/min (90-130); Glucose 93 mg/dL (65-115); HDL Cholesterol 48 mg/dL (60-100); LDL Cholesterol Calculated 85 mg/dL (50-129); LDL HDL Ratio 1.77 RATIO (0.00-3.22); Magnesium 1.7 mg/dL (1.7-2.3); Osmolality Calculated 292 mOsm/kg (285-295); Phosphorus 3.1 mg/dL (2.5-4.5); Sodium 140 mmol/L (136-145); Total Bilirubin 0.4 mg/dL (0.15-1.2); Total Protein 6.5 g/dL (6.6-8.7); Triglycerides 115 mg/dL (0-150)
[2021-03-29 09:49] LABS: Calcium 9.9 mg/dL (8.5-10.5)
[2021-03-29 09:49] LABS: Bilirubin Urine Neg (Negative); Blood Urine Neg (Negative); Glucose Urine UA Norm (Normal); Ketones Urine Negative (Negative); Leukocyte Esterase Urine 2+ (Negative); Nitrate Urine Positive (Negative); Protein Urine Neg (Negative); Specific Gravity, Urine 1.005 (1.005-1.030); Urine Appearance SL Hazy (CLEAR); Urine Color Straw (Yellow); Urobilinogen Urine Norm (Negative); pH Urine 6.5 (5-7)
[2021-03-29 09:50] LABS: Add Urine Culture? Yes; Bacteria Urine 3+ /hpf; Total Protein, Random Urine 5.6 mg/dL (0.0-20.0); WBC Urine 25-40 /hpf (0-5)
[2021-03-29 09:55] LABS: Parathyroid Hormone 45.8 pg/mL (15-65)
[2021-03-29 10:04] LABS: 25 Hydroxy Vitamin D 54 ng/mL (30-100)
[2021-04-01 16:11] LABS: CMV DNA By PCR NOT DETECTED; CMV DNA, QN PCR NOT DETECTED Log IU/mL; SOURCE WHOLE BLOOD
[2021-04-01 17:12] LABS: BK VIRUS DNA, QN PCR NO DNA DETECTED copies/mL; SOURCE WHOLE BLOOD
== END 2021-03-29 08:21 | disposition home or self-care (01) ==
LOC: LAB 08:29
PROVIDERS: PCP Family Medicine; Visit Provider Nurse Practitioner
DX: Z94.0 Kidney transplant status (principal); E79.0 Hyperuricemia without signs of inflammatory arthritis and tophaceous disease; D84.9 Immunodeficiency, unspecified; Z79.899 Other long term (current) drug therapy; N18.9 Chronic kidney disease, unspecified; E83.9 Disorder of mineral metabolism, unspecified; M89.9 Disorder of bone, unspecified; E78.5 Hyperlipidemia, unspecified
CPT/HCPCS: 36415; 80053; 80061; 80197; 81001; 82306; 82310; 82570; 83735; 83970; 84100; 84156; 84550; 85025; 87077; 87086; 87186; 87496; 87798

== ENCOUNTER 2021-04-06 13:57 | Outpatient (CLI) | payer OTHER, SELFPAY ==
[2021-04-06 14:08] VITALS: BP 144/72; PULSE 67; RESP 18; TEMP 36.4; O2SAT 96
[2021-04-06] MEDS: denosumab 60 mg SDV SUBCUT (14:16)
[2021-04-06 14:23] VITALS: BP 137/74; PULSE 72; RESP 18; TEMP 36.3
== END 2021-04-06 13:58 | disposition home or self-care (01) ==
PROVIDERS: PCP Family Medicine; Referring Provider Family Medicine; Visit Provider Internal Medicine Medical Oncology
DX: M81.0 Age-related osteoporosis without current pathological fracture (principal)
CPT/HCPCS: 96372; J0897

== ENCOUNTER 2021-04-27 07:38 | Outpatient (CLI) | payer OTHER, SELFPAY ==
[2021-04-27 08:14] LABS: Basophils # 0.1 10^3/uL (0.0-0.1); Basophils % 0.8 %; Eosinophils # 0.2 10^3/uL (0.0-0.8); Eosinophils % 2.8 %; Hematocrit 42.5 % (37.0-47.0); Hemoglobin 13.4 g/dL (11.5-15.3); Lymphocytes # 0.8 10^3/uL (0.8-4.8); Lymphocytes % 9.4 %; Mean Corpuscular HGB Conc 31.5 g/dL (30.0-36.0); Mean Corpuscular Hemoglobin 29.7 pg (28.0-34.0); Mean Corpuscular Volume 94.2 fl (81-99); Mean Platelet Volume 8.9 fL (7.4-10.4); Monocytes # 0.4 10^3/uL (0.2-0.9); Neutrophils # 6.96 10^3/uL (1.8-7.7); Neutrophils % 81.6 %; Nucleated Red Blood Cells % 0 %; Platelet Count 197 10^3/cmm (130-400); Red Blood Count 4.51 10^6/uL (4.1-5.3); Red Cell Distribution Width 13.1 % (12.1-15.1); White Blood Count 8.5 10^3/uL (4.0-10.0)
[2021-04-27 08:37] LABS: Albumin Level 4.3 g/dL (3.5-5.2); Chloride 105 mmol/L (98-107); Potassium 4.3 mmol/L (3.5-5.1); Sodium 138 mmol/L (136-145)
[2021-04-27 08:38] LABS: Creatinine Urine, Random 71 mg/dL (28-217); Microalbumin Random Urine 4 ug/dL (0-20); Total Protein, Random Urine 14.8 mg/dL (0.0-20.0)
[2021-04-27 08:43] LABS: Microalbum Creatinine Ratio Ur 56 mg/dL (0-20)
[2021-04-27 09:01] LABS: Bilirubin Urine Neg (Negative); Blood Urine Neg (Negative); Glucose Urine UA Norm (Normal); Ketones Urine Negative (Negative); Leukocyte Esterase Urine 2+ (Negative); Nitrate Urine Positive (Negative); Protein Urine Trace (Negative); Urine Appearance Hazy (CLEAR); Urine Color Yellow (Yellow); Urobilinogen Urine Norm (Negative); pH Urine 7 (5-7)
[2021-04-27 09:03] LABS: Add Urine Culture? Yes; Alanine Aminotransferase 9 U/L (0-33); Alkaline Phosphatase 61 IU/L (35-105); Anion Gap 15.3 (5-19); Aspartate Amino Transferase 14 U/L (0-32); Bacteria Urine 4+ /hpf; Blood Urea Nitrogen 19 mg/dL (8-23); Calcium 9.3 mg/dL (8.5-10.5); Carbon Dioxide 21 mmol/L (22-29); Globulin 2.7 g/dL (1.3-4.6); Glomerular Filtration Rate 63.7 mL/min (90-130); Glucose 92 mg/dL (65-115); Magnesium 1.7 mg/dL (1.7-2.3); Osmolality Calculated 286 mOsm/kg (285-295); Squamous Epithelial Cell Urine 0-4 /hpf (0-5); Total Bilirubin 0.4 mg/dL (0.15-1.2); Total Protein 6.9 g/dL (6.6-8.7); WBC Urine 25-40 /hpf (0-5)
== END 2021-04-27 07:39 | disposition home or self-care (01) ==
LOC: LAB 07:46
PROVIDERS: PCP Family Medicine; Visit Provider Nurse Practitioner
DX: Z94.0 Kidney transplant status (principal); E79.0 Hyperuricemia without signs of inflammatory arthritis and tophaceous disease; D84.9 Immunodeficiency, unspecified; Z79.899 Other long term (current) drug therapy; N18.9 Chronic kidney disease, unspecified; E78.5 Hyperlipidemia, unspecified; E83.9 Disorder of mineral metabolism, unspecified; M89.9 Disorder of bone, unspecified
CPT/HCPCS: 36415; 80053; 80197; 81001; 82044; 83735; 84100; 84156; 85025; 87077; 87086; 87186

== ENCOUNTER 2021-05-26 07:22 | Outpatient (CLI) | payer OTHER, SELFPAY ==
[2021-05-26 08:05] LABS: Basophils # 0.1 10^3/uL (0.0-0.1); Basophils % 0.6 %; Eosinophils # 0.3 10^3/uL (0.0-0.8); Eosinophils % 2.6 %; Hematocrit 41.4 % (37.0-47.0); Hemoglobin 13.2 g/dL (11.5-15.3); Lymphocytes # 0.7 10^3/uL (0.8-4.8); Lymphocytes % 7.7 %; Mean Corpuscular HGB Conc 31.9 g/dL (30.0-36.0); Mean Corpuscular Hemoglobin 29.8 pg (28.0-34.0); Mean Corpuscular Volume 93.5 fl (81-99); Mean Platelet Volume 8.7 fL (7.4-10.4); Monocytes # 0.6 10^3/uL (0.2-0.9); Monocytes % 5.8 %; Neutrophils # 7.84 10^3/uL (1.8-7.7); Nucleated Red Blood Cells % 0 %; Platelet Count 193 10^3/cmm (130-400); Red Blood Count 4.43 10^6/uL (4.1-5.3); Red Cell Distribution Width 13.2 % (12.1-15.1); White Blood Count 9.5 10^3/uL (4.0-10.0)
[2021-05-26 08:16] LABS: Bilirubin Urine Neg (Negative); Blood Urine Trace (Negative); Glucose Urine UA Norm (Normal); Ketones Urine Negative (Negative); Leukocyte Esterase Urine 2+ (Negative); Nitrate Urine Positive (Negative); Protein Urine Neg (Negative); Urine Appearance SL Hazy (CLEAR); Urine Color Yellow (Yellow); Urobilinogen Urine Norm (Negative); pH Urine 7 (5-7)
[2021-05-26 08:20] LABS: Bacteria Urine 1+ /hpf; RBC Urine 0-4 /hpf (0-2); Squamous Epithelial Cell Urine 0-4 /hpf (0-5); WBC Urine 0-4 /hpf (0-5)
[2021-05-26 08:25] LABS: Urine Creatinine 44 mg/dL (28-217)
[2021-05-26 08:27] LABS: Alanine Aminotransferase 9 U/L (0-33); Albumin Level 4.6 g/dL (3.5-5.2); Alkaline Phosphatase 73 IU/L (35-105); Anion Gap 15.3 (5-19); Aspartate Amino Transferase 13 U/L (0-32); Blood Urea Nitrogen 19 mg/dL (8-23); Calcium 9.4 mg/dL (8.5-10.5); Carbon Dioxide 24 mmol/L (22-29); Chloride 104 mmol/L (98-107); Globulin 1.9 g/dL (1.3-4.6); Glomerular Filtration Rate 50.5 mL/min (90-130); Glucose 117 mg/dL (65-115); Magnesium 1.9 mg/dL (1.7-2.3); Osmolality Calculated 291 mOsm/kg (285-295); Phosphorus 3.4 mg/dL (2.5-4.5); Potassium 4.3 mmol/L (3.5-5.1); Sodium 139 mmol/L (136-145); Total Bilirubin 0.4 mg/dL (0.15-1.2); Total Protein 6.5 g/dL (6.6-8.7)
[2021-05-26 08:30] LABS: Total Protein, Random Urine 8.9 mg/dL (0.0-20.0)
== END 2021-05-26 07:23 | disposition home or self-care (01) ==
LOC: LAB 07:24
PROVIDERS: PCP Family Medicine; Visit Provider Nurse Practitioner
DX: Z94.0 Kidney transplant status (principal); E79.0 Hyperuricemia without signs of inflammatory arthritis and tophaceous disease; D84.9 Immunodeficiency, unspecified; Z79.899 Other long term (current) drug therapy; N18.9 Chronic kidney disease, unspecified; E83.9 Disorder of mineral metabolism, unspecified; M89.9 Disorder of bone, unspecified; E78.5 Hyperlipidemia, unspecified
CPT/HCPCS: 36415; 80053; 80197; 81001; 82570; 83735; 84100; 84156; 85025

== ENCOUNTER 2021-07-02 07:21 | Outpatient (CLI) | payer OTHER, SELFPAY ==
[2021-07-02 08:06] LABS: Basophils % 0.4 %; Eosinophils # 0.1 10^3/uL (0.0-0.8); Eosinophils % 2.8 %; Hematocrit 37.3 % (37.0-47.0); Hemoglobin 11.9 g/dL (11.5-15.3); Lymphocytes # 1.1 10^3/uL (0.8-4.8); Mean Corpuscular HGB Conc 31.9 g/dL (30.0-36.0); Mean Corpuscular Hemoglobin 29.7 pg (28.0-34.0); Mean Platelet Volume 9.6 fL (7.4-10.4); Monocytes # 0.3 10^3/uL (0.2-0.9); Monocytes % 5.4 %; Neutrophils # 3.09 10^3/uL (1.8-7.7); Nucleated Red Blood Cells % 0 %; Platelet Count 118 10^3/cmm (130-400); Red Blood Count 4.01 10^6/uL (4.1-5.3); Red Cell Distribution Width 13.3 % (12.1-15.1); White Blood Count 4.6 10^3/uL (4.0-10.0)
[2021-07-02 08:27] LABS: Alanine Aminotransferase 17 U/L (0-33); Albumin Level 3.9 g/dL (3.5-5.2); Alkaline Phosphatase 65 IU/L (35-105); Anion Gap 15.8 (5-19); Aspartate Amino Transferase 20 U/L (0-32); Blood Urea Nitrogen 18 mg/dL (8-23); Calcium 8.8 mg/dL (8.5-10.5); Carbon Dioxide 24 mmol/L (22-29); Chloride 98 mmol/L (98-107); Cholesterol 105 mg/dL (0-200); Globulin 2.6 g/dL (1.3-4.6); Glomerular Filtration Rate 50.5 mL/min (90-130); Glucose 192 mg/dL (65-115); HDL Cholesterol 25 mg/dL (60-100); LDL Cholesterol Calculated 46 mg/dL (50-129); LDL HDL Ratio 1.84 RATIO (0.00-3.22); Magnesium 1.8 mg/dL (1.7-2.3); Osmolality Calculated 285 mOsm/kg (285-295); Phosphorus 3.9 mg/dL (2.5-4.5); Potassium 3.8 mmol/L (3.5-5.1); Sodium 134 mmol/L (136-145); Total Bilirubin 0.5 mg/dL (0.15-1.2); Total Protein 6.5 g/dL (6.6-8.7); Triglycerides 169 mg/dL (0-150); Uric Acid 4.6 mg/dL (2.4-5.7)
[2021-07-02 08:31] LABS: Slide Review Slide Review Perform
[2021-07-02 08:32] LABS: Creatinine Urine, Random 109 mg/dL (28-217); Total Protein, Random Urine 30.3 mg/dL (0.0-20.0)
[2021-07-02 08:37] LABS: Calcium 8.7 mg/dL (8.5-10.5)
[2021-07-02 08:40] LABS: RBC Urine 0-4 /hpf (0-2); Urine Appearance Cloudy (CLEAR); Urine Color Yellow (Yellow); WBC Urine 40-55 /hpf (0-5)
[2021-07-02 08:41] LABS: Add Urine Culture? Yes; Bacteria Urine 3+ /hpf; Bilirubin Urine Neg (Negative); Blood Urine 2+ (Negative); Glucose Urine UA Norm (Normal); Ketones Urine Negative (Negative); Nitrate Urine Positive (Negative); Protein Urine Trace (Negative); Specific Gravity, Urine 1.005 (1.005-1.030); Urobilinogen Urine Norm (Negative); pH Urine 7 (5-7)
[2021-07-02 08:42] LABS: 25 Hydroxy Vitamin D 41 ng/mL (30-100)
[2021-07-02 08:42] LABS: Leukocyte Esterase Urine 2+ (Negative)
[2021-07-02 08:44] LABS: Parathyroid Hormone 39.9 pg/mL (15-65)
[2021-07-06 01:37] LABS: CMV DNA By PCR 10908 IU/mL; CMV DNA, QN PCR 4.04 Log IU/mL; SOURCE BLOOD
[2021-07-06 13:07] LABS: BK VIRUS DNA, QN PCR NOT DETECTED copies/mL; BK VIRUS DNA, QN RT PCR NOT DETECTED Log cps/mL; SOURCE BLOOD
== END 2021-07-02 07:22 | disposition home or self-care (01) ==
LOC: LAB 07:23
PROVIDERS: PCP Family Medicine; Visit Provider Nurse Practitioner
DX: N18.9 Chronic kidney disease, unspecified (principal); E78.5 Hyperlipidemia, unspecified; E79.0 Hyperuricemia without signs of inflammatory arthritis and tophaceous disease; E83.9 Disorder of mineral metabolism, unspecified; D84.9 Immunodeficiency, unspecified; M89.9 Disorder of bone, unspecified; Z94.0 Kidney transplant status; Z79.899 Other long term (current) drug therapy
CPT/HCPCS: 80053; 80061; 80197; 81001; 82306; 82310; 82575; 83735; 83970; 84100; 84156; 84550; 85025; 87077; 87086; 87186; 87496; 87798

== ENCOUNTER 2021-07-27 07:39 | Outpatient (CLI) | payer OTHER, SELFPAY ==
[2021-07-27 08:40] LABS: Basophils % 0.3 %; Eosinophils # 0.1 10^3/uL (0.0-0.8); Eosinophils % 0.7 %; Hematocrit 37.8 % (37.0-47.0); Hemoglobin 11.4 g/dL (11.5-15.3); Lymphocytes # 2.6 10^3/uL (0.8-4.8); Lymphocytes % 36.3 %; Mean Corpuscular HGB Conc 30.2 g/dL (30.0-36.0); Mean Corpuscular Hemoglobin 28.1 pg (28.0-34.0); Mean Corpuscular Volume 93.3 fl (81-99); Mean Platelet Volume 9.3 fL (7.4-10.4); Monocytes # 0.4 10^3/uL (0.2-0.9); Monocytes % 6.1 %; Neutrophils # 4.01 10^3/uL (1.8-7.7); Nucleated Red Blood Cells % 0 %; Platelet Count 162 10^3/cmm (130-400); Red Blood Count 4.05 10^6/uL (4.1-5.3); Red Cell Distribution Width 14.1 % (12.1-15.1); White Blood Count 7.2 10^3/uL (4.0-10.0)
[2021-07-27 09:01] LABS: Bilirubin Urine Neg (Negative); Blood Urine Trace (Negative); Glucose Urine UA Norm (Normal); Ketones Urine Negative (Negative); Leukocyte Esterase Urine 2+ (Negative); Nitrate Urine Positive (Negative); Protein Urine Neg (Negative); Urine Appearance Hazy (CLEAR); Urine Color Yellow (Yellow); Urobilinogen Urine Norm (Negative); WBC Urine 25-40 /hpf (0-5); pH Urine 7 (5-7)
[2021-07-27 09:01] LABS: Alanine Aminotransferase 20 U/L (0-33); Albumin Level 3.7 g/dL (3.5-5.2); Alkaline Phosphatase 71 IU/L (35-105); Anion Gap 12.4 (5-19); Aspartate Amino Transferase 25 U/L (0-32); Blood Urea Nitrogen 16 mg/dL (8-23); Calcium 8.9 mg/dL (8.5-10.5); Carbon Dioxide 27 mmol/L (22-29); Chloride 99 mmol/L (98-107); Globulin 2.5 g/dL (1.3-4.6); Glomerular Filtration Rate 56.4 mL/min (90-130); Glucose 106 mg/dL (65-115); Magnesium 1.7 mg/dL (1.7-2.3); Osmolality Calculated 280 mOsm/kg (285-295); Phosphorus 3.9 mg/dL (2.5-4.5); Potassium 4.4 mmol/L (3.5-5.1); Sodium 134 mmol/L (136-145); Total Bilirubin 0.4 mg/dL (0.15-1.2); Total Protein 6.2 g/dL (6.6-8.7)
[2021-07-27 09:02] LABS: Add Urine Culture? Yes; Bacteria Urine 4+ /hpf; Squamous Epithelial Cell Urine 0-4 /hpf (0-5)
[2021-07-27 09:10] LABS: Urine Creatinine 55 mg/dL (28-217)
[2021-07-27 09:15] LABS: Total Protein, Random Urine 15.3 mg/dL (0.0-20.0)
== END 2021-07-27 07:40 | disposition home or self-care (01) ==
PROVIDERS: PCP Family Medicine; Visit Provider Hospitalist
DX: N18.9 Chronic kidney disease, unspecified (principal); E83.9 Disorder of mineral metabolism, unspecified; M89.9 Disorder of bone, unspecified; Z94.0 Kidney transplant status; E79.0 Hyperuricemia without signs of inflammatory arthritis and tophaceous disease; D84.9 Immunodeficiency, unspecified; E78.5 Hyperlipidemia, unspecified; Z79.899 Other long term (current) drug therapy
CPT/HCPCS: 36415; 80053; 80197; 81001; 82570; 83735; 84100; 84156; 85025

== ENCOUNTER 2021-08-20 07:26 | Outpatient (CLI) | payer OTHER, SELFPAY ==
--- NOTE | 2021-08-20 07:35 | MM_ITS ---
WS: [id number] BILATERAL SCREENING DIGITAL BREAST TOMOSYNTHESIS MAMMOGRAM WITH CAD HISTORY: SCREENING COMPARISON: 08/13/2020, 08/12/2019 and 08/10/2018 Bilateral CC and MLO views with tomosynthesis and synthetic mammography submitted. Computer aided det ection analyzed. Breast composition: There are scattered areas of fibroglandular density. No suspicious masses, microc alcifications or architectural distortion. Stable area of architectural distortion in the superior LE FT breast seen on the MLO projection. MM/[id number] IMPRESSION: BI-RADS: 2-Benign FOLLOW UP: 1 Year Follow-up
[2021-08-20 08:49] LABS: Basophils % 0.5 %; Eosinophils # 0.2 10^3/uL (0.0-0.8); Hematocrit 36.4 % (37.0-47.0); Hemoglobin 11.5 g/dL (11.5-15.3); Lymphocytes # 2.1 10^3/uL (0.8-4.8); Lymphocytes % 27.2 %; Mean Corpuscular HGB Conc 31.6 g/dL (30.0-36.0); Mean Corpuscular Hemoglobin 27.6 pg (28.0-34.0); Mean Corpuscular Volume 87.5 fl (81-99); Mean Platelet Volume 8.8 fL (7.4-10.4); Monocytes # 0.5 10^3/uL (0.2-0.9); Monocytes % 6.7 %; Neutrophils # 4.81 10^3/uL (1.8-7.7); Neutrophils % 63.1 %; Nucleated Red Blood Cells % 0 %; Platelet Count 214 10^3/cmm (130-400); Red Blood Count 4.16 10^6/uL (4.1-5.3); Red Cell Distribution Width 14.4 % (12.1-15.1); White Blood Count 7.6 10^3/uL (4.0-10.0)
[2021-08-20 09:00] LABS: Bilirubin Urine Neg (Negative); Blood Urine Neg (Negative); Glucose Urine UA Norm (Normal); Ketones Urine Negative (Negative); Nitrate Urine Negative (Negative); Protein Urine Neg (Negative); Specific Gravity, Urine 1.005 (1.005-1.030); Urine Color Yellow (Yellow); pH Urine 7 (5-7)
[2021-08-20 09:01] LABS: Add Urine Culture? Yes; Bacteria Urine 3+ /hpf; Leukocyte Esterase Urine 2+ (Negative); RBC Urine 0-4 /hpf (0-2); Squamous Epithelial Cell Urine 0-4 /hpf (0-5); WBC Urine 25-40 /hpf (0-5)
[2021-08-20 09:07] LABS: Urine Creatinine 94 mg/dL (28-217)
[2021-08-20 09:11] LABS: Alanine Aminotransferase 10 U/L (0-33); Albumin Level 4.3 g/dL (3.5-5.2); Alkaline Phosphatase 72 IU/L (35-105); Anion Gap 14.3 (5-19); Aspartate Amino Transferase 14 U/L (0-32); Blood Urea Nitrogen 16 mg/dL (8-23); Calcium 8.9 mg/dL (8.5-10.5); Carbon Dioxide 26 mmol/L (22-29); Chloride 99 mmol/L (98-107); Globulin 2.9 g/dL (1.3-4.6); Glomerular Filtration Rate 56.4 mL/min (90-130); Glucose 128 mg/dL (65-115); Osmolality Calculated 283 mOsm/kg (285-295); Phosphorus 3.5 mg/dL (2.5-4.5); Potassium 4.3 mmol/L (3.5-5.1); Sodium 135 mmol/L (136-145); Total Bilirubin 0.6 mg/dL (0.15-1.2); Total Protein 7.2 g/dL (6.6-8.7)
[2021-08-20 09:54] LABS: Total Protein, Random Urine 24.9 mg/dL (0.0-20.0)
[2021-08-20 10:18] LABS: Urobilinogen Urine Norm (Negative)
== END 2021-08-20 07:27 | disposition home or self-care (01) ==
PROVIDERS: PCP Family Medicine; Referring Provider Hospitalist; Visit Provider Family Medicine
DX: Z12.31 Encounter for screening mammogram for malignant neoplasm of breast (principal); M81.0 Age-related osteoporosis without current pathological fracture; Z94.0 Kidney transplant status; E79.0 Hyperuricemia without signs of inflammatory arthritis and tophaceous disease; D84.9 Immunodeficiency, unspecified; N18.9 Chronic kidney disease, unspecified; E83.9 Disorder of mineral metabolism, unspecified; M89.9 Disorder of bone, unspecified; E87.5 Hyperkalemia; Z79.899 Other long term (current) drug therapy
CPT/HCPCS: 36415; 77063; 77067; 80053; 80197; 81001; 82570; 83735; 84100; 84156; 85025

== ENCOUNTER 2021-09-20 07:44 | Outpatient (CLI) | payer OTHER, SELFPAY ==
[2021-09-20 08:58] LABS: Basophils % 0.5 %; Eosinophils # 0.2 10^3/uL (0.0-0.8); Eosinophils % 3.6 %; Hematocrit 40.3 % (37.0-47.0); Hemoglobin 12.7 g/dL (11.5-15.3); Lymphocytes # 1.8 10^3/uL (0.8-4.8); Lymphocytes % 28.4 %; Mean Corpuscular HGB Conc 31.5 g/dL (30.0-36.0); Mean Corpuscular Hemoglobin 28.2 pg (28.0-34.0); Mean Corpuscular Volume 89.6 fl (81-99); Mean Platelet Volume 8.5 fL (7.4-10.4); Monocytes # 0.5 10^3/uL (0.2-0.9); Monocytes % 7.4 %; Neutrophils # 3.86 10^3/uL (1.8-7.7); Neutrophils % 59.8 %; Nucleated Red Blood Cells % 0 %; Platelet Count 183 10^3/cmm (130-400); Red Cell Distribution Width 14.8 % (12.1-15.1); White Blood Count 6.5 10^3/uL (4.0-10.0)
[2021-09-20 09:14] LABS: Bilirubin Urine Neg (Negative); Blood Urine Neg (Negative); Glucose Urine UA Norm (Normal); Ketones Urine Negative (Negative); Leukocyte Esterase Urine 2+ (Negative); Nitrate Urine Positive (Negative); Protein Urine Neg (Negative); Urine Appearance SL Hazy (CLEAR); Urine Color Yellow (Yellow); Urobilinogen Urine Norm (Negative); pH Urine 7 (5-7)
[2021-09-20 09:15] LABS: Add Urine Culture? Yes; Bacteria Urine 3+ /hpf; Squamous Epithelial Cell Urine RARE /hpf (0-5); WBC Urine >100 /hpf (0-5)
[2021-09-20 09:18] LABS: Alanine Aminotransferase 11 U/L (0-33); Albumin Level 4.4 g/dL (3.5-5.2); Alkaline Phosphatase 76 IU/L (35-105); Anion Gap 12.6 (5-19); Aspartate Amino Transferase 16 U/L (0-32); Blood Urea Nitrogen 20 mg/dL (8-23); Calcium 9.1 mg/dL (8.5-10.5); Carbon Dioxide 28 mmol/L (22-29); Chloride 99 mmol/L (98-107); Glomerular Filtration Rate 63.7 mL/min (90-130); Glucose 95 mg/dL (65-115); Lipase 62 U/L (13-60); Osmolality Calculated 282 mOsm/kg (285-295); Phosphorus 3.5 mg/dL (2.5-4.5); Potassium 4.6 mmol/L (3.5-5.1); Sodium 135 mmol/L (136-145); Total Bilirubin 0.5 mg/dL (0.15-1.2); Total Protein 7.4 g/dL (6.6-8.7)
[2021-09-20 09:20] LABS: Calcium 9.1 mg/dL (8.5-10.5)
[2021-09-20 09:27] LABS: Parathyroid Hormone 73.5 pg/mL (15-65)
[2021-09-20 09:31] LABS: 25 Hydroxy Vitamin D 51 ng/mL (30-100)
[2021-09-20 09:38] LABS: Creatinine Urine, Random 33 mg/dL (28-217); Total Protein, Random Urine 7.6 mg/dL (0.0-20.0)
[2021-09-28 20:04] LABS: SOURCE WHOLE BLOOD
[2021-09-28 20:38] LABS: BK VIRUS DNA, QN PCR NOT DETECTED copies/mL; BK VIRUS DNA, QN RT PCR NOT DETECTED Log cps/mL; SOURCE BLOOD
== END 2021-09-20 07:45 | disposition home or self-care (01) ==
PROVIDERS: PCP Family Medicine; Visit Provider Hospitalist
DX: Z94.0 Kidney transplant status (principal); E79.0 Hyperuricemia without signs of inflammatory arthritis and tophaceous disease; D84.9 Immunodeficiency, unspecified; Z79.899 Other long term (current) drug therapy; N18.9 Chronic kidney disease, unspecified; E83.9 Disorder of mineral metabolism, unspecified; M89.9 Disorder of bone, unspecified; E78.5 Hyperlipidemia, unspecified
CPT/HCPCS: 36415; 80053; 80197; 81001; 82306; 82310; 82575; 83690; 83735; 83970; 84100; 84156; 84550; 85025; 87077; 87086; 87186; 87496; 87798

== ENCOUNTER 2021-10-06 05:43 | Day surgery (SDC) | payer OTHER, SELFPAY ==
[2021-10-04 13:18] VITALS: BMI 27.1
--- NOTE | 2021-10-06 05:55 | PM.HP ---
Providers/Chief Complaint Primary Care Provider: Cuco Palafox MD Chief Complaint: History of colon polyps History of Present Illness Devora Gustafson is a 61 year old female with a history of colon polyps is here for a routine screening colonoscopy Review of Systems General: Reports: 10 or more systems reviewed and unremarkable except in HPI and below Medications/Allergies Home Medications Medication Instructions Recorded Confirmed Last Taken Type amlodipine 10 mg tablet 10 mg PO DAILY 09/24/19 10/04/21 09/24/19 History ascorbic acid (vitamin C) 500 mg 500 mg PO BID 09/24/19 10/04/21 09/24/19 History tablet (Vitamin C) ascorbic acid (vitamin C) 500 mg 500 mg PO DAILY 09/24/19 10/04/21 09/20/19 History tablet (Vitamin C) aspirin 81 mg chewable tablet 81 mg PO DAILY 09/24/19 10/04/21 10/02/21 History carvedilol 25 mg tablet 25 mg PO BID 09/24/19 10/04/21 09/24/19 History febuxostat 40 mg tablet (Uloric) 40 mg PO DAILY 09/24/19 10/04/21 09/24/19 History levothyroxine 125 mcg tablet 125 mcg PO DAILY 09/24/19 10/04/21 09/24/19 History magnesium oxide 400 mg (241.3 mg 800 mg PO BID 09/24/19 10/04/21 09/23/19 History magnesium) tablet (MagOx) mycophenolate sodium 180 mg 360 mg PO BID 09/24/19 10/04/21 09/24/19 History tablet,delayed release (Myfortic) pravastatin 20 mg tablet 20 mg PO DAILY 09/24/19 10/04/21 09/23/19 History prednisone 5 mg tablet 5 mg PO DAILY 09/24/19 10/04/21 09/24/19 History tacrolimus 1 mg tablet,extended 2 mg PO DAILY 09/24/19 10/04/21 09/24/19 History release 24 hr (Envarsus XR) zinc 50 mg tablet 50 mg PO DAILY 09/24/19 10/04/21 09/24/19 History methenamine hippurate 1 gram tablet 1 g PO BID 08/03/21 10/04/21 Unknown History Allergies Allergy/AdvReac Type Severity Reaction Status Date / Time lisinopril Allergy tongue Verified 08/03/21 10:34 swelling PFSH Acute PFSH: Medical History (Updated 10/06/21 @ 05:57 by Bennie Almeida DO) History of colon polyps Hypothyroidism Polycystic kidney disease Surgical History History of colonoscopy History of hysterectomy History of kidney transplant History of sinus surgery History of tubal ligation Social History Smoking and tobacco status: never smoked Vitals/I&O/Wt Weight last 48 hrs Weight 173 lb A&P Assessment and plan (1) History of colon polyps: Status: Acute Plan Colonoscopy Attestations Medical Necessity Statement*: Patient will be discharged Coding Level of Care Code Acute Hands [employer] Dial Inspector for Madeleine Amaya Diagnoses History of colon polyps Z86.010
[2021-10-06 06:07] VITALS: BP 143/79; PULSE 77; RESP 18; TEMP 35.8; O2SAT 98
[2021-10-06] MEDS: sodium chloride 0.9% 1,000 ML 30 ML IV (06:16)
--- NOTE | 2021-10-06 06:50 | P.ANESASSM_ITS ---
Pre-Anesthetic Assessment Height/Weight: Height 1.7 m Weight 78.471 kg Temp Pulse Resp BP Pulse Ox O2 Del Method 96.5 F L 77 18 143/79 98 10/06/21 06:07 10/06/21 06:07 10/06/21 06:07 10/06/21 06:07 10/06/21 06:07 10/06/21 06:07 Preop Diagnosis: screening Operation Date: 10/06/21 07:00 Proposed Procedures p Colonoscopy 62505,Z12.11(Not Applicable) - Bennie Almeida DO Familial anesthetic complications: none Was Beta Angel taken within 24 hours: N/A (yesterday evening) Was Clonidine taken within 24 hours: N/A Last intake: Intake Last Liquid Date 10/05/21 Last Liquid Time 18:00 Last Solid Date 10/04/21 Last Solid Time 18:00 Social No alcohol and No tobacco Exam alert, oriented x 3, clear to auscultation bilaterally and regular rate & rhythm Airway Submandibular: within normal limits Cervical ROM: within normal limits Mallampati: Class II Dentition: full History/ROS No significant history except as noted Pulmonary None reported CV/HEM Hypertension polycystic kidney disease- third kidney transplanted on left side- originals not removed- 2017 Hepatic None reported GI None reported Metabolic [place] [facility] [place] None reported Neuropsych None reported Anesthetic Plan ASA status: 3 Anesthesia: Anesthesia Evaluation and MAC Risk of > 500 ml blood loss (7ml/kg in children): No Medications/Allergies Home Medications Medication Instructions Recorded Confirmed Last Taken Type amlodipine 10 mg tablet 10 mg PO DAILY 09/24/19 10/06/21 10/05/21 History ascorbic acid (vitamin C) 500 mg 500 mg PO BID 09/24/19 10/06/21 10/05/21 History tablet (Vitamin C) ascorbic acid (vitamin C) 500 mg 500 mg PO DAILY 09/24/19 10/06/21 10/05/21 History tablet (Vitamin C) aspirin 81 mg chewable tablet 81 mg PO DAILY 09/24/19 10/06/21 10/02/21 History carvedilol 25 mg tablet 25 mg PO BID 09/24/19 10/06/21 10/05/21 History febuxostat 40 mg tablet (Uloric) 40 mg PO DAILY 09/24/19 10/06/21 10/05/21 History levothyroxine 125 mcg tablet 125 mcg PO DAILY 09/24/19 10/06/21 10/06/21 History magnesium oxide 400 mg (241.3 mg 800 mg PO BID 09/24/19 10/06/21 10/05/21 History magnesium) tablet (MagOx) mycophenolate sodium 180 mg 360 mg PO BID 09/24/19 10/06/21 10/06/21 History tablet,delayed release (Myfortic) pravastatin 20 mg tablet 20 mg PO DAILY 09/24/19 10/06/21 10/05/21 History prednisone 5 mg tablet 5 mg PO DAILY 09/24/19 10/06/21 10/06/21 History tacrolimus 1 mg tablet,extended 2 mg PO DAILY 09/24/19 10/06/21 10/06/21 History release 24 hr (Envarsus XR) zinc 50 mg tablet 50 mg PO DAILY 09/24/19 10/06/21 10/05/21 History methenamine hippurate 1 gram tablet 1 g PO BID 08/03/21 10/06/21 10/05/21 History Allergies Allergy/AdvReac Type Severity Reaction Status Date / Time lisinopril Allergy tongue Verified 10/06/21 06:06 swelling Current Medications Generic Name Dose Route Start Last Admin Trade Name Freq PRN Reason Stop Dose Admin Sodium Chloride 1,000 mls @ 30 mls/hr 10/06/21 06:15 10/06/21 06:16 Sodium Chloride 0.9% IV 10/07/21 06:14 30 mls/hr .Q24H DOMINGA Administration PFSH Anesthesia Medical History (Updated 10/06/21 @ 05:57 by Bennie Almeida DO) History of colon polyps Hypothyroidism Polycystic kidney disease Surgical History History of colonoscopy History of hysterectomy History of kidney transplant History of sinus surgery History of tubal ligation Social History Smoking and tobacco status: never smoked Data Anesthesia Cardiac Studies: No Data to Display
[2021-10-06 07:28] VITALS: BP 103/63; PULSE 62; RESP 18; TEMP 37; O2SAT 98
--- NOTE | 2021-10-06 07:29 | ANE.PACU2 ---
Inpatient post-anesthesia follow up: Airway intact: Yes Vital signs: Temperature 96.5 F Pulse Rate 77 Respiratory Rate 18 Blood Pressure 143/79 Pulse Oximetry 98 Oxygen Delivery Me thod Room Air Oxygen Flow Rate Fraction of Inspir ed Oxygen Hydration adequate: Yes Nausea and vomiting: No Pain level: 1 Mental status: Baseline
[2021-10-06 07:43] VITALS: BP 105/65; PULSE 63; RESP 18; TEMP 36.3; O2SAT 100
== END 2021-10-06 07:55 | disposition home or self-care (01) ==
PROVIDERS: PCP Family Medicine; Visit Provider Surgery
PROC: 0DJD8ZZ Inspection of Lower Intestinal Tract, Via Natural or Artificial Opening Endoscopic (ICD-10-PCS; CPT 45378; principal; 2021-10-06 07:00)
DX: Z12.11 Encounter for screening for malignant neoplasm of colon (principal); Z86.010 Personal history of colon polyps; E03.9 Hypothyroidism, unspecified; E28.2 Polycystic ovarian syndrome; K57.30 Diverticulosis of large intestine without perforation or abscess without bleeding; K64.8 Other hemorrhoids
CPT/HCPCS: 45380; 88305; J2704; J7030

== ENCOUNTER 2021-10-13 10:41 | Outpatient (CLI) | payer OTHER, SELFPAY ==
[2021-10-13 10:57] VITALS: BP 136/79; PULSE 66; RESP 18; TEMP 36.2; O2SAT 98
[2021-10-13] MEDS: denosumab 60 mg SDV SUBCUT (11:06)
[2021-10-13 11:20] VITALS: BP 119/68; PULSE 62; RESP 18; TEMP 36.4; O2SAT 98
== END 2021-10-13 10:42 | disposition home or self-care (01) ==
LOC: ONCMED 10:41
PROVIDERS: PCP Family Medicine; Visit Provider Family Medicine
DX: M81.0 Age-related osteoporosis without current pathological fracture (principal)
CPT/HCPCS: 96372; J0897

== ENCOUNTER 2021-10-26 07:22 | Outpatient (CLI) | payer OTHER, SELFPAY ==
[2021-10-26 08:58] LABS: Basophils # 0.1 10^3/uL (0.0-0.1); Basophils % 0.7 %; Eosinophils # 0.2 10^3/uL (0.0-0.8); Eosinophils % 2.5 %; Hematocrit 40.4 % (37.0-47.0); Hemoglobin 12.4 g/dL (11.5-15.3); Lymphocytes # 1.8 10^3/uL (0.8-4.8); Mean Corpuscular HGB Conc 30.7 g/dL (30.0-36.0); Mean Corpuscular Hemoglobin 27.7 pg (28.0-34.0); Mean Corpuscular Volume 90.2 fl (81-99); Mean Platelet Volume 8.3 fL (7.4-10.4); Monocytes # 0.4 10^3/uL (0.2-0.9); Monocytes % 6.2 %; Neutrophils # 4.31 10^3/uL (1.8-7.7); Neutrophils % 63.6 %; Nucleated Red Blood Cells % 0 %; Platelet Count 275 10^3/cmm (130-400); Red Blood Count 4.48 10^6/uL (4.1-5.3); Red Cell Distribution Width 14.6 % (12.1-15.1); White Blood Count 6.8 10^3/uL (4.0-10.0)
[2021-10-26 09:18] LABS: Urine Appearance Clear (CLEAR); Urine Color Yellow (Yellow)
[2021-10-26 09:19] LABS: Bilirubin Urine Neg (Negative); Blood Urine 2+ (Negative); Glucose Urine UA Norm (Normal); Ketones Urine Negative (Negative); Leukocyte Esterase Urine 2+ (Negative); Nitrate Urine Negative (Negative); Protein Urine Neg (Negative); Specific Gravity, Urine 1.005 (1.005-1.030); Urobilinogen Urine Norm (Negative); pH Urine 7 (5-7)
[2021-10-26 09:21] LABS: Add Urine Culture? Yes; Bacteria Urine TRACE /hpf; RBC Urine 0-4 /hpf (0-2)
[2021-10-26 09:22] LABS: Alanine Aminotransferase 13 U/L (0-33); Albumin Level 4.2 g/dL (3.5-5.2); Alkaline Phosphatase 92 U/L (35-105); Anion Gap 14.5 (5-19); Aspartate Amino Transferase 16 U/L (0-32); Blood Urea Nitrogen 20 mg/dL (8-23); Calcium 8.9 mg/dL (8.5-10.5); Carbon Dioxide 25 mmol/L (22-29); Chloride 103 mmol/L (98-107); Globulin 2.9 g/dL (1.3-4.6); Glomerular Filtration Rate 63.4 mL/min (90-130); Glucose 95 mg/dL (65-115); Magnesium 1.7 mg/dL (1.7-2.3); Osmolality Calculated 288 mOsm/kg (285-295); Phosphorus 3.2 mg/dL (2.5-4.5); Potassium 4.5 mmol/L (3.5-5.1); Sodium 138 mmol/L (136-145); Total Bilirubin 0.3 mg/dL (0.15-1.2); Total Protein 7.1 g/dL (6.6-8.7)
[2021-10-26 09:51] LABS: Creatinine Urine, Random 35 mg/dL (28-217); Total Protein, Random Urine 7.8 mg/dL (0.0-20.0)
== END 2021-10-26 07:23 | disposition home or self-care (01) ==
PROVIDERS: PCP Family Medicine; Visit Provider Hospitalist
DX: Z94.0 Kidney transplant status (principal); E79.0 Hyperuricemia without signs of inflammatory arthritis and tophaceous disease; D84.9 Immunodeficiency, unspecified; Z79.899 Other long term (current) drug therapy; N18.9 Chronic kidney disease, unspecified; E83.9 Disorder of mineral metabolism, unspecified; M89.9 Disorder of bone, unspecified; E78.5 Hyperlipidemia, unspecified
CPT/HCPCS: 36415; 80053; 80197; 81001; 82575; 83735; 84100; 84156; 85025; 87086

== ENCOUNTER 2021-10-29 12:42 | Outpatient (CLI) | payer OTHER, SELFPAY ==
--- NOTE | 2021-10-29 12:51 | XR_ITS ---
WS: [id number] DEXA (DUAL ENERGY X-RAY ABSORPTIOMETRY) Bone mineral density was performed using a [employer] Un[employer] machine. HISTORY: OSTEOPOROSIS COMPARISON: 08/29/2019 Lumbar spine BMD (L1-L4): 1.051 g/cm2 T score: -1.1 Z score: 0.0 Total hip BMD: Left: 0.690 g/cm2. T score: -2.5 Z score: -1.7 Right: 0.706 g/cm2. T score: -2.4 Z score: -1.6 10 year probability of a major osteoporotic fracture is 30.8%. Compared to the prior study from 08/29/2019. Lumbar spine bone mineral density has increased by 10.4%. Bilateral hips bone mineral density has increased by 3.6%. XR/XR DEXA axial skeleton* [id number] IMPRESSION: OSTEOPOROSIS based upon the WHO classification for females. Significant increase in bone mineral density within the lumbar spine and hips s ahmet the prior study.
== END 2021-10-29 12:43 | disposition home or self-care (01) ==
LOC: RAD 12:42
PROVIDERS: PCP Family Medicine; Visit Provider Family Medicine
DX: M81.0 Age-related osteoporosis without current pathological fracture (principal)
CPT/HCPCS: 77080

== ENCOUNTER 2021-11-23 08:03 | Outpatient (CLI) | payer OTHER, SELFPAY ==
[2021-11-23 08:34] LABS: Basophils % 0.6 %; Eosinophils # 0.2 10^3/uL (0.0-0.8); Eosinophils % 2.7 %; Hematocrit 41.3 % (37.0-47.0); Lymphocytes # 1.6 10^3/uL (0.8-4.8); Lymphocytes % 22.1 %; Mean Corpuscular HGB Conc 31.5 g/dL (30.0-36.0); Mean Corpuscular Hemoglobin 28.5 pg (28.0-34.0); Mean Corpuscular Volume 90.6 fl (81-99); Mean Platelet Volume 8.5 fL (7.4-10.4); Monocytes # 0.4 10^3/uL (0.2-0.9); Neutrophils % 68.3 %; Nucleated Red Blood Cells % 0 %; Platelet Count 155 10^3/cmm (130-400); Red Blood Count 4.56 10^6/uL (4.1-5.3); Red Cell Distribution Width 14.9 % (12.1-15.1); White Blood Count 7.2 10^3/uL (4.0-10.0)
[2021-11-23 08:35] LABS: Bilirubin Urine Negative (Negative); Blood Urine Trace-intact (Negative); Glucose Urine UA Negative (Normal); Ketones Urine Negative (Negative); Leukocyte Esterase Urine 3+ (Negative); Nitrate Urine Positive; Protein Urine Negative (Negative); Urine Color Yellow (Yellow); Urobilinogen Urine 0.2 mg/dL (Negative)
[2021-11-23 08:45] LABS: Add Urine Culture? Yes; Bacteria Urine 2+ /hpf; RBC Urine 0-4 /hpf (0-2); Squamous Epithelial Cell Urine 0-4 /hpf (0-5); WBC Urine TOO NUMEROUS TO CNT /hpf (0-5)
[2021-11-23 09:00] LABS: Alanine Aminotransferase 19 U/L (0-33); Albumin Level 4.2 g/dL (3.5-5.2); Alkaline Phosphatase 78 U/L (35-105); Anion Gap 15.3 (5-19); Aspartate Amino Transferase 15 U/L (0-32); Blood Urea Nitrogen 22 mg/dL (8-23); Calcium 9.2 mg/dL (8.5-10.5); Carbon Dioxide 26 mmol/L (22-29); Chloride 101 mmol/L (98-107); Globulin 2.4 g/dL (1.3-4.6); Glomerular Filtration Rate 56.2 mL/min (90-130); Glucose 102 mg/dL (65-115); Magnesium 1.5 mg/dL (1.7-2.3); Osmolality Calculated 290 mOsm/kg (285-295); Phosphorus 3.4 mg/dL (2.5-4.5); Potassium 4.3 mmol/L (3.5-5.1); Sodium 138 mmol/L (136-145); Total Bilirubin 0.6 mg/dL (0.15-1.2); Total Protein 6.6 g/dL (6.6-8.7)
[2021-11-23 09:55] LABS: Creatinine Urine, Random 43 mg/dL (28-217); Total Protein, Random Urine 13.8 mg/dL (0.0-20.0)
== END 2021-11-23 08:04 | disposition home or self-care (01) ==
LOC: LAB 08:09
PROVIDERS: PCP Family Medicine; Visit Provider Hospitalist
DX: E79.0 Hyperuricemia without signs of inflammatory arthritis and tophaceous disease (principal); D84.9 Immunodeficiency, unspecified; N18.9 Chronic kidney disease, unspecified; E83.9 Disorder of mineral metabolism, unspecified; M89.9 Disorder of bone, unspecified; E78.5 Hyperlipidemia, unspecified; Z94.0 Kidney transplant status; Z79.899 Other long term (current) drug therapy
CPT/HCPCS: 36415; 80053; 80197; 81001; 82575; 83735; 84100; 84156; 85025; 87077; 87086; 87186

== ENCOUNTER 2021-12-27 07:55 | Outpatient (CLI) | payer OTHER, SELFPAY ==
[2021-12-27 08:50] LABS: Basophils % 0.4 %; Eosinophils # 0.2 10^3/uL (0.0-0.8); Eosinophils % 2.9 %; Hematocrit 39.8 % (37.0-47.0); Hemoglobin 12.8 g/dL (11.5-15.3); Lymphocytes # 1.4 10^3/uL (0.8-4.8); Lymphocytes % 19.3 %; Mean Corpuscular HGB Conc 32.2 g/dL (30.0-36.0); Mean Platelet Volume 8.5 fL (7.4-10.4); Monocytes # 0.4 10^3/uL (0.2-0.9); Monocytes % 5.9 %; Neutrophils # 5.16 10^3/uL (1.8-7.7); Neutrophils % 71.1 %; Nucleated Red Blood Cells % 0 %; Platelet Count 196 10^3/cmm (130-400); Red Blood Count 4.42 10^6/uL (4.1-5.3); Red Cell Distribution Width 13.8 % (12.1-15.1); White Blood Count 7.3 10^3/uL (4.0-10.0)
[2021-12-27 09:48] LABS: Calcium 9.5 mg/dL (8.5-10.5); Parathyroid Hormone 38.6 pg/mL (15-65)
[2021-12-27 09:59] LABS: 25 Hydroxy Vitamin D 50 ng/mL (30-100); Alanine Aminotransferase 10 U/L (0-33); Albumin Level 3.9 g/dL (3.5-5.2); Alkaline Phosphatase 77 U/L (35-105); Anion Gap 14.3 (5-19); Aspartate Amino Transferase 13 U/L (0-32); Blood Urea Nitrogen 19 mg/dL (8-23); Calcium 9.7 mg/dL (8.5-10.5); Carbon Dioxide 27 mmol/L (22-29); Chloride 96 mmol/L (98-107); Chol HDL Ratio 3.12 mg/dL (0.0-4.40); Cholesterol 128 mg/dL (0-200); Globulin 3.4 g/dL (1.3-4.6); Glomerular Filtration Rate 50.3 mL/min (90-130); Glucose 104 mg/dL (65-115); HDL Cholesterol 41 mg/dL (60-100); LDL Cholesterol Calculated 68 mg/dL (50-129); LDL HDL Ratio 1.66 RATIO (0.00-3.22); Magnesium 1.7 mg/dL (1.7-2.3); Osmolality Calculated 279 mOsm/kg (285-295); Phosphorus 4.4 mg/dL (2.5-4.5); Potassium 4.3 mmol/L (3.5-5.1); Sodium 133 mmol/L (136-145); Total Bilirubin 0.6 mg/dL (0.15-1.2); Total Protein 7.3 g/dL (6.6-8.7); Triglycerides 97 mg/dL (0-150); Uric Acid 4.4 mg/dL (2.4-5.7)
[2021-12-27 11:45] LABS: Specific Gravity, Urine 1.005 (1.005-1.030); Urine Appearance Hazy (CLEAR); Urine Color Yellow (Yellow); pH Urine 7 (5-7)
[2021-12-27 11:46] LABS: Add Urine Culture? Yes; Bacteria Urine 3+ /hpf; Bilirubin Urine Neg (Negative); Blood Urine Neg (Negative); Glucose Urine UA Norm (Normal); Ketones Urine Negative (Negative); Leukocyte Esterase Urine 2+ (Negative); Nitrate Urine Positive (Negative); Protein Urine Neg (Negative); Squamous Epithelial Cell Urine RARE /hpf (0-5); Urobilinogen Urine Norm (Negative); WBC Urine 15-25 /hpf (0-5)
[2021-12-27 11:59] LABS: Urine Creatinine 39 mg/dL (28-217)
[2021-12-27 12:04] LABS: Total Protein, Random Urine 8.1 mg/dL (0.0-20.0)
[2022-01-06 13:53] LABS: CMV DNA By PCR NOT DETECTED; CMV DNA, QN PCR NOT DETECTED Log IU/mL; SOURCE BLOOD
== END 2021-12-27 07:56 | disposition home or self-care (01) ==
PROVIDERS: PCP Family Medicine; Visit Provider Hospitalist
DX: Z94.0 Kidney transplant status (principal); E79.0 Hyperuricemia without signs of inflammatory arthritis and tophaceous disease; D84.9 Immunodeficiency, unspecified; Z79.899 Other long term (current) drug therapy; N18.9 Chronic kidney disease, unspecified; E83.9 Disorder of mineral metabolism, unspecified; M89.9 Disorder of bone, unspecified; E78.5 Hyperlipidemia, unspecified
CPT/HCPCS: 36415; 80053; 80061; 80197; 81001; 82306; 82310; 82570; 83735; 83970; 84100; 84156; 84550; 85025; 87496

== ENCOUNTER 2022-01-24 08:57 | Outpatient (CLI) | payer OTHER, SELFPAY ==
[2022-01-24 09:45] LABS: Basophils % 0.6 %; Eosinophils # 0.2 10^3/uL (0.0-0.8); Eosinophils % 2.8 %; Hematocrit 39.7 % (37.0-47.0); Hemoglobin 12.6 g/dL (11.5-15.3); Lymphocytes # 1.5 10^3/uL (0.8-4.8); Lymphocytes % 22.6 %; Mean Corpuscular HGB Conc 31.7 g/dL (30.0-36.0); Mean Corpuscular Hemoglobin 29.8 pg (28.0-34.0); Mean Corpuscular Volume 93.9 fl (81-99); Mean Platelet Volume 8.5 fL (7.4-10.4); Monocytes # 0.3 10^3/uL (0.2-0.9); Neutrophils # 4.57 10^3/uL (1.8-7.7); Neutrophils % 69.8 %; Nucleated Red Blood Cells % 0 %; Platelet Count 172 10^3/cmm (130-400); Red Blood Count 4.23 10^6/uL (4.1-5.3); Red Cell Distribution Width 13.7 % (12.1-15.1); White Blood Count 6.5 10^3/uL (4.0-10.0)
[2022-01-24 10:07] LABS: Alanine Aminotransferase 10 U/L (0-33); Albumin Level 3.9 g/dL (3.5-5.2); Alkaline Phosphatase 69 U/L (35-105); Aspartate Amino Transferase 14 U/L (0-32); Blood Urea Nitrogen 17 mg/dL (8-23); Calcium 9.3 mg/dL (8.5-10.5); Carbon Dioxide 27 mmol/L (22-29); Chloride 98 mmol/L (98-107); Glomerular Filtration Rate 63.4 mL/min (90-130); Glucose 109 mg/dL (65-115); Magnesium 1.7 mg/dL (1.7-2.3); Osmolality Calculated 276 mOsm/kg (285-295); Phosphorus 3.7 mg/dL (2.5-4.5); Sodium 132 mmol/L (136-145); Total Bilirubin 0.5 mg/dL (0.15-1.2); Total Protein 6.9 g/dL (6.6-8.7)
[2022-01-24 11:01] LABS: Bilirubin Urine Neg (Negative); Blood Urine Neg (Negative); Glucose Urine UA Norm (Normal); Ketones Urine Negative (Negative); Leukocyte Esterase Urine 2+ (Negative); Nitrate Urine Positive (Negative); Protein Urine Neg (Negative); Specific Gravity, Urine 1.005 (1.005-1.030); Urine Appearance Hazy (CLEAR); Urine Color Straw (Yellow); Urobilinogen Urine Norm (Negative); pH Urine 7 (5-7)
[2022-01-24 11:03] LABS: RBC Urine 0-4 /hpf (0-2)
[2022-01-24 11:04] LABS: Add Urine Culture? Yes; Bacteria Urine 3+ /hpf; Squamous Epithelial Cell Urine 0-4 /hpf (0-5); WBC Urine 25-40 /hpf (0-5)
[2022-01-24 11:14] LABS: Urine Creatinine 27 mg/dL (28-217)
[2022-01-24 11:19] LABS: Total Protein, Random Urine 5.3 mg/dL (0.0-20.0)
== END 2022-01-24 08:58 | disposition home or self-care (01) ==
LOC: LAB 09:00
PROVIDERS: PCP Family Medicine; Visit Provider Hospitalist
DX: Z94.0 Kidney transplant status (principal); E79.0 Hyperuricemia without signs of inflammatory arthritis and tophaceous disease; D84.9 Immunodeficiency, unspecified; Z79.899 Other long term (current) drug therapy; N18.9 Chronic kidney disease, unspecified; E83.9 Disorder of mineral metabolism, unspecified; M89.9 Disorder of bone, unspecified; E78.5 Hyperlipidemia, unspecified
CPT/HCPCS: 80053; 80197; 81001; 82570; 83735; 84100; 84156; 85025

== ENCOUNTER 2022-02-23 08:13 | Outpatient (CLI) | payer OTHER, SELFPAY ==
[2022-02-23 09:17] LABS: Basophils # 0.1 10^3/uL (0.0-0.1); Basophils % 0.9 %; Eosinophils # 0.2 10^3/uL (0.0-0.8); Hematocrit 43.7 % (37.0-47.0); Hemoglobin 13.8 g/dL (11.5-15.3); Lymphocytes # 1.6 10^3/uL (0.8-4.8); Lymphocytes % 22.5 %; Mean Corpuscular HGB Conc 31.6 g/dL (30.0-36.0); Mean Corpuscular Hemoglobin 29.3 pg (28.0-34.0); Mean Corpuscular Volume 92.8 fl (81-99); Mean Platelet Volume 8.6 fL (7.4-10.4); Monocytes # 0.5 10^3/uL (0.2-0.9); Monocytes % 7.4 %; Neutrophils # 4.55 10^3/uL (1.8-7.7); Neutrophils % 65.9 %; Nucleated Red Blood Cells % 0 %; Platelet Count 173 10^3/cmm (130-400); Red Blood Count 4.71 10^6/uL (4.1-5.3); Red Cell Distribution Width 13.4 % (12.1-15.1); White Blood Count 6.9 10^3/uL (4.0-10.0)
[2022-02-23 09:33] LABS: Blood Urine Neg (Negative); Glucose Urine UA Norm (Normal); Ketones Urine Negative (Negative); Protein Urine Trace (Negative); Urine Appearance Clear (CLEAR); Urine Color Yellow (Yellow); pH Urine 6 (5-7)
[2022-02-23 09:34] LABS: Add Urine Culture? Yes; Bacteria Urine 4+ /hpf; Bilirubin Urine Neg (Negative); Leukocyte Esterase Urine 2+ (Negative); Nitrate Urine Positive (Negative); Urobilinogen Urine Neg (Negative)
[2022-02-23 09:36] LABS: Creatinine Urine, Random 36 mg/dL (28-217); Total Protein, Random Urine 11.8 mg/dL (0.0-20.0)
[2022-02-23 09:39] LABS: Alanine Aminotransferase 15 U/L (0-33); Albumin Level 4.4 g/dL (3.5-5.2); Alkaline Phosphatase 79 U/L (35-105); Aspartate Amino Transferase 20 U/L (0-32); Blood Urea Nitrogen 14 mg/dL (8-23); Calcium 9.1 mg/dL (8.5-10.5); Carbon Dioxide 26 mmol/L (22-29); Chloride 101 mmol/L (98-107); Globulin 2.6 g/dL (1.3-4.6); Glomerular Filtration Rate 72.7 mL/min (90-130); Glucose 73 mg/dL (65-115); Magnesium 1.7 mg/dL (1.7-2.3); Osmolality Calculated 287 mOsm/kg (285-295); Phosphorus 3.9 mg/dL (2.5-4.5); Sodium 139 mmol/L (136-145); Total Bilirubin 0.4 mg/dL (0.15-1.2)
[2022-02-23 09:40] LABS: Anion Gap 16.1 (5-19); Potassium 4.1 mmol/L (3.5-5.1)
== END 2022-02-23 08:14 | disposition home or self-care (01) ==
LOC: LAB 08:17
PROVIDERS: PCP Family Medicine; Visit Provider Hospitalist
DX: Z94.0 Kidney transplant status (principal); E79.0 Hyperuricemia without signs of inflammatory arthritis and tophaceous disease; D84.9 Immunodeficiency, unspecified; Z79.899 Other long term (current) drug therapy; N18.9 Chronic kidney disease, unspecified; E83.9 Disorder of mineral metabolism, unspecified; M89.9 Disorder of bone, unspecified; E78.5 Hyperlipidemia, unspecified
CPT/HCPCS: 36415; 80053; 80197; 81001; 82575; 83735; 84100; 84156; 85025

== ENCOUNTER 2022-03-28 09:12 | Outpatient (CLI) | payer OTHER, SELFPAY ==
[2022-03-28 09:55] LABS: Basophils # 0.1 10^3/uL (0.0-0.1); Basophils % 0.9 %; Eosinophils # 0.2 10^3/uL (0.0-0.8); Eosinophils % 2.6 %; Hematocrit 43.1 % (37.0-47.0); Hemoglobin 13.6 g/dL (11.5-15.3); Lymphocytes # 1.6 10^3/uL (0.8-4.8); Lymphocytes % 22.8 %; Mean Corpuscular HGB Conc 31.6 g/dL (30.0-36.0); Mean Corpuscular Hemoglobin 28.9 pg (28.0-34.0); Mean Corpuscular Volume 91.7 fl (81-99); Mean Platelet Volume 8.2 fL (7.4-10.4); Monocytes # 0.4 10^3/uL (0.2-0.9); Monocytes % 5.9 %; Neutrophils # 4.71 10^3/uL (1.8-7.7); Neutrophils % 67.5 %; Nucleated Red Blood Cells % 0 %; Platelet Count 174 10^3/cmm (130-400); Red Cell Distribution Width 13.3 % (12.1-15.1)
[2022-03-28 10:22] LABS: Alanine Aminotransferase 16 U/L (0-33); Albumin Level 4.3 g/dL (3.5-5.2); Alkaline Phosphatase 70 U/L (35-105); Anion Gap 12.9 (5-19); Aspartate Amino Transferase 17 U/L (0-32); Blood Urea Nitrogen 18 mg/dL (8-23); Calcium 9.4 mg/dL (8.5-10.5); Carbon Dioxide 28 mmol/L (22-29); Chloride 98 mmol/L (98-107); Chol HDL Ratio 2.96 mg/dL (0.0-4.40); Cholesterol 154 mg/dL (0-200); Globulin 2.5 g/dL (1.3-4.6); Glomerular Filtration Rate 56.2 mL/min (90-130); Glucose 87 mg/dL (65-115); HDL Cholesterol 52 mg/dL (60-100); LDL Cholesterol Calculated 82 mg/dL (50-129); Magnesium 1.6 mg/dL (1.7-2.3); Osmolality Calculated 281 mOsm/kg (285-295); Phosphorus 3.9 mg/dL (2.5-4.5); Potassium 3.9 mmol/L (3.5-5.1); Sodium 135 mmol/L (136-145); Total Bilirubin 0.6 mg/dL (0.15-1.2); Total Protein 6.8 g/dL (6.6-8.7); Triglycerides 100 mg/dL (0-150); Uric Acid 4.6 mg/dL (2.4-5.7); VLDL Cholestrol Calculation 20 mg/dL (0-30)
[2022-03-28 10:23] LABS: Calcium 9.3 mg/dL (8.5-10.5)
[2022-03-28 10:29] LABS: Parathyroid Hormone 37.4 pg/mL (15-65)
[2022-03-28 10:35] LABS: 25 Hydroxy Vitamin D 42 ng/mL (30-100)
[2022-03-28 10:39] LABS: Creatinine Urine, Random 86 mg/dL (28-217); Microalbumin Random Urine 5 ug/dL (0-20)
[2022-03-28 10:40] LABS: Microalbum Creatinine Ratio Ur 58 mg/dL (0-20)
[2022-03-28 11:02] LABS: Add Urine Culture? Yes; Bacteria Urine 3+ /hpf; Bilirubin Urine Neg (Negative); Blood Urine Trace (Negative); Glucose Urine UA Norm (Normal); Ketones Urine Negative (Negative); Leukocyte Esterase Urine 2+ (Negative); Nitrate Urine Positive (Negative); Protein Urine Neg (Negative); RBC Urine 0-4 /hpf (0-2); Specific Gravity, Urine 1.005 (1.005-1.030); Urine Appearance Hazy (CLEAR); Urine Color Yellow (Yellow); Urobilinogen Urine Neg (Negative); WBC Urine 40-55 /hpf (0-5); pH Urine 7 (5-7)
[2022-04-01 19:14] LABS: CMV DNA By PCR NOT DETECTED; CMV DNA, QN PCR NOT DETECTED Log IU/mL; SOURCE EDTA
== END 2022-03-28 09:13 | disposition home or self-care (01) ==
LOC: LAB 09:16
PROVIDERS: PCP Family Medicine; Visit Provider Hospitalist
DX: Z94.0 Kidney transplant status (principal); E79.0 Hyperuricemia without signs of inflammatory arthritis and tophaceous disease; D84.9 Immunodeficiency, unspecified; Z79.899 Other long term (current) drug therapy; N18.9 Chronic kidney disease, unspecified; E83.9 Disorder of mineral metabolism, unspecified; M89.9 Disorder of bone, unspecified; E78.5 Hyperlipidemia, unspecified
CPT/HCPCS: 36415; 80053; 80061; 80197; 81001; 82044; 82306; 82310; 83735; 83970; 84100; 84550; 85025; 87496

== ENCOUNTER 2022-04-25 08:09 | Outpatient (CLI) | payer OTHER, SELFPAY ==
[2022-04-25 08:50] LABS: Basophils % 0.6 %; Eosinophils # 0.1 10^3/uL (0.0-0.8); Eosinophils % 2.1 %; Hemoglobin 13.1 g/dL (11.5-15.3); Lymphocytes # 1.5 10^3/uL (0.8-4.8); Mean Corpuscular Hemoglobin 29.2 pg (28.0-34.0); Mean Corpuscular Volume 91.5 fl (81-99); Mean Platelet Volume 8.4 fL (7.4-10.4); Monocytes # 0.4 10^3/uL (0.2-0.9); Monocytes % 5.6 %; Neutrophils # 4.74 10^3/uL (1.8-7.7); Neutrophils % 69.4 %; Nucleated Red Blood Cells % 0 %; Platelet Count 167 10^3/cmm (130-400); Red Blood Count 4.48 10^6/uL (4.1-5.3); Red Cell Distribution Width 13.5 % (12.1-15.1); White Blood Count 6.8 10^3/uL (4.0-10.0)
[2022-04-25 09:16] LABS: Alanine Aminotransferase 13 U/L (0-33); Albumin Level 4.2 g/dL (3.5-5.2); Alkaline Phosphatase 82 U/L (35-105); Aspartate Amino Transferase 18 U/L (0-32); Blood Urea Nitrogen 20 mg/dL (8-23); Calcium 9.4 mg/dL (8.5-10.5); Carbon Dioxide 25 mmol/L (22-29); Chloride 101 mmol/L (98-107); Globulin 2.7 g/dL (1.3-4.6); Glomerular Filtration Rate 63.4 mL/min (90-130); Glucose 126 mg/dL (65-115); Magnesium 1.5 mg/dL (1.7-2.3); Osmolality Calculated 292 mOsm/kg (285-295); Phosphorus 3.6 mg/dL (2.5-4.5); Sodium 139 mmol/L (136-145); Total Bilirubin 0.6 mg/dL (0.15-1.2); Total Protein 6.9 g/dL (6.6-8.7)
[2022-04-25 09:17] LABS: Urine Creatinine 17 mg/dL (28-217); Urine Protein Random 5 mg/dL
[2022-04-25 09:21] LABS: Anion Gap 17.2 (5-19); Potassium 4.2 mmol/L (3.5-5.1)
[2022-04-25 09:21] LABS: UPRO/UCREAT Ratio 0.29 mg/mg CR
[2022-04-25 09:51] LABS: Add Urine Culture? Yes; Bacteria Urine 3+ /hpf; Bilirubin Urine Neg (Negative); Blood Urine Neg (Negative); Glucose Urine UA Norm (Normal); Ketones Urine Negative (Negative); Leukocyte Esterase Urine 2+ (Negative); Nitrate Urine Positive (Negative); Protein Urine Neg (Negative); RBC Urine 0-4 /hpf (0-2); Specific Gravity, Urine 1.005 (1.005-1.030); Squamous Epithelial Cell Urine 0-4 /hpf (0-5); Urine Appearance Hazy (CLEAR); Urine Color Yellow (Yellow); Urobilinogen Urine Norm (Negative); WBC Urine 0-4 /hpf (0-5); pH Urine 6.5 (5-7)
== END 2022-04-25 08:10 | disposition home or self-care (01) ==
LOC: LAB 08:12
PROVIDERS: PCP Family Medicine; Visit Provider Hospitalist
DX: Z94.0 Kidney transplant status (principal); E79.0 Hyperuricemia without signs of inflammatory arthritis and tophaceous disease; D84.9 Immunodeficiency, unspecified; Z79.899 Other long term (current) drug therapy; N18.9 Chronic kidney disease, unspecified; E83.9 Disorder of mineral metabolism, unspecified; M89.9 Disorder of bone, unspecified; E78.5 Hyperlipidemia, unspecified
CPT/HCPCS: 36415; 80053; 80197; 81001; 82570; 83735; 84100; 84156; 85025; 87077; 87086; 87186

== ENCOUNTER 2022-05-05 09:11 | Oncology outpatient (recurring) (ONCR) | payer OTHER, SELFPAY ==
[2022-05-05 09:36] VITALS: BP 101/66; PULSE 60; RESP 16; TEMP 36.1; O2SAT 97
[2022-05-05] MEDS: denosumab 60 mg SDV SUBCUT (09:38)
== END 2022-05-20 23:59 | disposition home or self-care (01) ==
LOC: ONCMED 09:11
PROVIDERS: PCP Family Medicine; Visit Provider Family Medicine
DX: M81.0 Age-related osteoporosis without current pathological fracture (principal); Z79.899 Other long term (current) drug therapy
CPT/HCPCS: 96372; J0897

== ENCOUNTER 2022-05-23 07:57 | Outpatient (CLI) | payer OTHER, SELFPAY ==
[2022-05-23 08:59] LABS: Basophils # 0.1 10^3/uL (0.0-0.1); Basophils % 0.7 %; Eosinophils # 0.2 10^3/uL (0.0-0.8); Eosinophils % 2.6 %; Hematocrit 40.7 % (37.0-47.0); Hemoglobin 13.1 g/dL (11.5-15.3); Lymphocytes # 1.8 10^3/uL (0.8-4.8); Lymphocytes % 20.9 %; Mean Corpuscular HGB Conc 32.2 g/dL (30.0-36.0); Mean Corpuscular Hemoglobin 29.1 pg (28.0-34.0); Mean Corpuscular Volume 90.4 fl (81-99); Mean Platelet Volume 8.7 fL (7.4-10.4); Monocytes # 0.5 10^3/uL (0.2-0.9); Monocytes % 5.4 %; Neutrophils # 5.92 10^3/uL (1.8-7.7); Nucleated Red Blood Cells % 0 %; Platelet Count 186 10^3/cmm (130-400); Red Cell Distribution Width 13.4 % (12.1-15.1); White Blood Count 8.5 10^3/uL (4.0-10.0)
[2022-05-23 09:19] LABS: Alanine Aminotransferase 14 U/L (0-33); Albumin Level 4.4 g/dL (3.5-5.2); Alkaline Phosphatase 85 U/L (35-105); Anion Gap 14.3 (5-19); Aspartate Amino Transferase 18 U/L (0-32); Blood Urea Nitrogen 34 mg/dL (8-23); Calcium 8.9 mg/dL (8.5-10.5); Carbon Dioxide 23 mmol/L (22-29); Chloride 99 mmol/L (98-107); Globulin 2.7 g/dL (1.3-4.6); Glomerular Filtration Rate 63.4 mL/min (90-130); Glucose 109 mg/dL (65-115); Magnesium 1.5 mg/dL (1.7-2.3); Osmolality Calculated 282 mOsm/kg (285-295); Phosphorus 4.5 mg/dL (2.5-4.5); Potassium 4.3 mmol/L (3.5-5.1); Sodium 132 mmol/L (136-145); Total Bilirubin 0.5 mg/dL (0.15-1.2); Total Protein 7.1 g/dL (6.6-8.7)
[2022-05-23 09:47] LABS: Urine Creatinine 23 mg/dL (28-217)
[2022-05-23 10:15] LABS: Total Protein, Random Urine 6.5 mg/dL (0.0-20.0)
[2022-05-23 10:16] LABS: Bilirubin Urine Neg (Negative); Blood Urine 2+ (Negative); Glucose Urine UA Norm (Normal); Ketones Urine Negative (Negative); Leukocyte Esterase Urine 2+ (Negative); Nitrate Urine Positive (Negative); Protein Urine Neg (Negative); Urine Appearance Cloudy (CLEAR); Urine Color Straw (Yellow); Urobilinogen Urine Neg (Negative); pH Urine 7 (5-7)
[2022-05-23 10:17] LABS: Add Urine Culture? Yes; Bacteria Urine 4+ /hpf; WBC Urine 25-40 /hpf (0-5)
== END 2022-05-23 07:58 | disposition home or self-care (01) ==
LOC: LAB 08:00
PROVIDERS: PCP Family Medicine; Visit Provider Hospitalist
DX: Z94.0 Kidney transplant status (principal); E79.0 Hyperuricemia without signs of inflammatory arthritis and tophaceous disease; D84.9 Immunodeficiency, unspecified; Z79.899 Other long term (current) drug therapy; N18.9 Chronic kidney disease, unspecified; E83.9 Disorder of mineral metabolism, unspecified; M89.9 Disorder of bone, unspecified; E78.5 Hyperlipidemia, unspecified
CPT/HCPCS: 36415; 80053; 80197; 81001; 82570; 83735; 84100; 84156; 85025

== ENCOUNTER 2022-06-22 07:23 | Outpatient (CLI) | payer OTHER, SELFPAY ==
[2022-06-22 08:12] LABS: Basophils # 0.1 10^3/uL (0.0-0.1); Basophils % 0.9 %; Eosinophils # 0.2 10^3/uL (0.0-0.8); Eosinophils % 2.4 %; Hematocrit 39.7 % (37.0-47.0); Hemoglobin 12.4 g/dL (11.5-15.3); Lymphocytes # 1.4 10^3/uL (0.8-4.8); Lymphocytes % 21.2 %; Mean Corpuscular HGB Conc 31.2 g/dL (30.0-36.0); Mean Corpuscular Hemoglobin 28.8 pg (28.0-34.0); Mean Corpuscular Volume 92.3 fl (81-99); Mean Platelet Volume 8.1 fL (7.4-10.4); Monocytes # 0.4 10^3/uL (0.2-0.9); Monocytes % 5.9 %; Neutrophils # 4.56 10^3/uL (1.8-7.7); Neutrophils % 69.1 %; Nucleated Red Blood Cells % 0 %; Platelet Count 239 10^3/cmm (130-400); Red Cell Distribution Width 13.5 % (12.1-15.1); White Blood Count 6.6 10^3/uL (4.0-10.0)
[2022-06-22 08:35] LABS: Urine Creatinine 22 mg/dL (28-217); Urine Protein Random 4 mg/dL
[2022-06-22 08:39] LABS: UPRO/UCREAT Ratio 0.18 mg/mg CR
[2022-06-22 08:39] LABS: Calcium 8.9 mg/dL (8.5-10.5)
[2022-06-22 08:40] LABS: Alanine Aminotransferase 12 U/L (0-33); Albumin Level 4.1 g/dL (3.5-5.2); Alkaline Phosphatase 88 U/L (35-105); Anion Gap 15.5 (5-19); Aspartate Amino Transferase 16 U/L (0-32); Blood Urea Nitrogen 22 mg/dL (8-23); Carbon Dioxide 24 mmol/L (22-29); Chloride 103 mmol/L (98-107); Chol HDL Ratio 3.68 mg/dL (0.0-4.40); Cholesterol 136 mg/dL (0-200); Globulin 2.9 g/dL (1.3-4.6); Glomerular Filtration Rate 56.2 mL/min (90-130); Glucose 103 mg/dL (65-115); HDL Cholesterol 37 mg/dL (60-100); LDL Cholesterol Calculated 75 mg/dL (50-129); LDL HDL Ratio 2.03 RATIO (0.00-3.22); Osmolality Calculated 290 mOsm/kg (285-295); Phosphorus 3.4 mg/dL (2.5-4.5); Potassium 4.5 mmol/L (3.5-5.1); Sodium 138 mmol/L (136-145); Total Bilirubin 0.4 mg/dL (0.15-1.2); Triglycerides 122 mg/dL (0-150); Uric Acid 4.4 mg/dL (2.4-5.7)
[2022-06-22 08:45] LABS: Parathyroid Hormone 68.3 pg/mL (15-65)
[2022-06-22 08:55] LABS: 25 Hydroxy Vitamin D 39 ng/mL (30-100)
[2022-06-22 09:20] LABS: Bilirubin Urine Neg (Negative); Blood Urine Neg (Negative); Glucose Urine UA Norm (Normal); Ketones Urine Negative (Negative); Leukocyte Esterase Urine Trace (Negative); Nitrate Urine Negative (Negative); Protein Urine Neg (Negative); Sulfosalicylic Acid Urine Negative (Negative); Urine Appearance Clear (CLEAR); Urine Color Light yellow (Yellow); Urobilinogen Urine Neg (Negative); pH Urine 8 (5-7)
[2022-06-22 09:21] LABS: RBC Urine 0-4 /hpf (0-2); WBC Urine 0-4 /hpf (0-5)
[2022-06-22 09:22] LABS: Add Urine Culture? No
[2022-06-27 05:51] LABS: CMV DNA By PCR NOT DETECTED; CMV DNA, QN PCR NOT DETECTED Log IU/mL; SOURCE WHOLE BLOOD
== END 2022-06-22 07:24 | disposition home or self-care (01) ==
LOC: LAB 07:27
PROVIDERS: PCP Family Medicine; Visit Provider Hospitalist
DX: Z94.0 Kidney transplant status (principal); E79.0 Hyperuricemia without signs of inflammatory arthritis and tophaceous disease; D84.9 Immunodeficiency, unspecified; Z79.899 Other long term (current) drug therapy; N18.9 Chronic kidney disease, unspecified; E83.9 Disorder of mineral metabolism, unspecified; M89.9 Disorder of bone, unspecified; E87.5 Hyperkalemia
CPT/HCPCS: 80053; 80061; 80197; 81001; 82306; 82310; 82570; 83735; 83970; 84100; 84156; 84550; 85025; 87496

== ENCOUNTER 2022-08-22 07:32 | Outpatient (CLI) | payer OTHER, SELFPAY ==
[2022-08-22 08:02] LABS: Basophils # 0.1 10^3/uL (0.0-0.1); Basophils % 0.6 %; Eosinophils # 0.3 10^3/uL (0.0-0.8); Eosinophils % 3.7 %; Hematocrit 41.9 % (37.0-47.0); Hemoglobin 13.4 g/dL (11.5-15.3); Lymphocytes # 1.5 10^3/uL (0.8-4.8); Lymphocytes % 19.6 %; Mean Corpuscular Hemoglobin 28.9 pg (28.0-34.0); Mean Corpuscular Volume 90.3 fl (81-99); Mean Platelet Volume 8.3 fL (7.4-10.4); Monocytes # 0.5 10^3/uL (0.2-0.9); Monocytes % 5.9 %; Neutrophils # 5.49 10^3/uL (1.8-7.7); Neutrophils % 69.8 %; Nucleated Red Blood Cells % 0 %; Platelet Count 155 10^3/cmm (130-400); Red Blood Count 4.64 10^6/uL (4.1-5.3); Red Cell Distribution Width 13.4 % (12.1-15.1); White Blood Count 7.9 10^3/uL (4.0-10.0)
[2022-08-22 08:17] LABS: Alanine Aminotransferase 12 U/L (0-33); Albumin Level 4.2 g/dL (3.5-5.2); Alkaline Phosphatase 66 U/L (35-105); Anion Gap 16.5 (5-19); Aspartate Amino Transferase 15 U/L (0-32); Blood Urea Nitrogen 27 mg/dL (8-23); Calcium 9.4 mg/dL (8.5-10.5); Carbon Dioxide 26 mmol/L (22-29); Chloride 99 mmol/L (98-107); Globulin 2.6 g/dL (1.3-4.6); Glomerular Filtration Rate 41.5 mL/min (90-130); Glucose 101 mg/dL (65-115); Magnesium 1.8 mg/dL (1.7-2.3); Osmolality Calculated 289 mOsm/kg (285-295); Phosphorus 4.6 mg/dL (2.5-4.5); Potassium 4.5 mmol/L (3.5-5.1); Sodium 137 mmol/L (136-145); Total Bilirubin 0.7 mg/dL (0.15-1.2); Total Protein 6.8 g/dL (6.6-8.7)
[2022-08-22 08:27] LABS: Urine Creatinine 45 mg/dL (28-217); Urine Protein Random 9 mg/dL
== END 2022-08-22 07:33 | disposition home or self-care (01) ==
LOC: LAB 07:36
PROVIDERS: PCP Family Medicine; Visit Provider Nurse Practitioner
DX: E79.0 Hyperuricemia without signs of inflammatory arthritis and tophaceous disease (principal); Z94.0 Kidney transplant status; I10 Essential (primary) hypertension; N25.81 Secondary hyperparathyroidism of renal origin; N18.9 Chronic kidney disease, unspecified; E83.9 Disorder of mineral metabolism, unspecified; M89.9 Disorder of bone, unspecified; Z79.60 Long term (current) use of unspecified immunomodulators and immunosuppressants; M81.8 Other osteoporosis without current pathological fracture
CPT/HCPCS: 36415; 80053; 80197; 82570; 83735; 84100; 84156; 85025

== ENCOUNTER 2022-08-24 14:41 | Outpatient (CLI) | payer OTHER, SELFPAY ==
--- NOTE | 2022-08-24 14:47 | MM_ITS ---
WS: [id number] BILATERAL 3D TOMOSYNTHESIS DIGITAL SCREENING MAMMOGRAPHY WITH CAD CLINICAL INFORMATION: SCREENING HISTORY: Screening mammogram. No current complaints. COMPARISON: 2021 TECHNIQUE: Bilateral CC and MLO views. FINDINGS: Scattered fibroglandular densities bilaterally. No suspicious focal mass, asymmetry, calcifications, or architectural distortion. No evidence of malignancy. Incidental punctate and lucent centered calci fications RIGHT breast. Vascular calcification. MM/[id number] IMPRESSION: BI-RADS: 2-Benign FOLLOW UP: 1 Year Follow-up Recommend return to annual screening mammography.
== END 2022-08-24 14:42 | disposition home or self-care (01) ==
LOC: RAD 14:43
PROVIDERS: PCP Family Medicine; Visit Provider Family Medicine
DX: Z12.31 Encounter for screening mammogram for malignant neoplasm of breast (principal)
CPT/HCPCS: 77063; 77067

== ENCOUNTER 2022-09-22 07:39 | Outpatient (CLI) | payer OTHER, SELFPAY ==
[2022-09-22 08:41] LABS: Calcium 8.8 mg/dL (8.5-10.5); Chol HDL Ratio 3.11 mg/dL (0.0-4.40); Cholesterol 137 mg/dL (0-200); HDL Cholesterol 44 mg/dL (60-100); LDL Cholesterol Calculated 65 mg/dL (50-129); Triglycerides 141 mg/dL (0-150); Uric Acid 4.6 mg/dL (2.4-5.7); VLDL Cholestrol Calculation 28 mg/dL (0-30)
[2022-09-22 08:47] LABS: Parathyroid Hormone 81.3 pg/mL (15-65)
[2022-09-22 08:57] LABS: 25 Hydroxy Vitamin D 35 ng/mL (30-100)
[2022-09-26 12:24] LABS: CMV DNA By PCR NOT DETECTED; CMV DNA, QN PCR NOT DETECTED Log IU/mL; SOURCE WHOLE BLOOD
[2022-09-26 12:39] LABS: BK VIRUS DNA, QN PCR NOT DETECTED copies/mL; BK VIRUS DNA, QN RT PCR NOT DETECTED Log cps/mL; SOURCE WHOLE BLOOD
== END 2022-09-22 07:40 | disposition home or self-care (01) ==
PROVIDERS: PCP Family Medicine; Visit Provider Nurse Practitioner
DX: E79.0 Hyperuricemia without signs of inflammatory arthritis and tophaceous disease (principal); I10 Essential (primary) hypertension; N25.81 Secondary hyperparathyroidism of renal origin; N18.9 Chronic kidney disease, unspecified; E83.9 Disorder of mineral metabolism, unspecified; M89.9 Disorder of bone, unspecified; M81.8 Other osteoporosis without current pathological fracture; Z79.60 Long term (current) use of unspecified immunomodulators and immunosuppressants; Z94.0 Kidney transplant status
CPT/HCPCS: 36415; 80061; 82306; 82310; 83970; 84550; 87496; 87798

== ENCOUNTER 2022-10-21 07:40 | Outpatient (CLI) | payer OTHER, SELFPAY ==
[2022-10-21 08:13] LABS: Basophils # 0.1 10^3/uL (0.0-0.1); Basophils % 0.8 %; Eosinophils # 0.3 10^3/uL (0.0-0.8); Eosinophils % 3.3 %; Hematocrit 40.4 % (36-47); Lymphocytes # 2.1 10^3/uL (0.8-4.8); Lymphocytes % 26.1 %; Mean Corpuscular HGB Conc 32.4 g/dL (30-55); Mean Corpuscular Hemoglobin 29.4 pg (27-33); Mean Corpuscular Volume 90.6 fl (85-98); Mean Platelet Volume 8.5 fL (7.4-10.4); Monocytes # 0.6 10^3/uL (0.2-0.9); Monocytes % 7.7 %; Neutrophils # 4.87 10^3/uL (1.8-7.7); Neutrophils % 61.7 %; Nucleated Red Blood Cells % 0 %; Platelet Count 173 10^3/cmm (157-399); Red Blood Count 4.46 10^6/uL (3.85-5.65); Red Cell Distribution Width 13.1 % (12.1-15.1); White Blood Count 7.89 10^3/uL (3.29-11.43)
[2022-10-21 08:37] LABS: Alanine Aminotransferase 12 U/L (0-33); Albumin Level 4.1 g/dL (3.5-5.2); Alkaline Phosphatase 64 U/L (35-105); Anion Gap 13.5 (5-19); Aspartate Amino Transferase 16 U/L (0-32); Blood Urea Nitrogen 23 mg/dL (8-23); Carbon Dioxide 27 mmol/L (22-29); Chloride 100 mmol/L (98-107); Globulin 2.6 g/dL (1.3-4.6); Glomerular Filtration Rate 50.2 mL/min (90-130); Glucose 106 mg/dL (65-115); Magnesium 1.9 mg/dL (1.7-2.3); Osmolality Calculated 286 mOsm/kg (285-295); Phosphorus 4.3 mg/dL (2.5-4.5); Potassium 4.5 mmol/L (3.5-5.1); Sodium 136 mmol/L (136-145); Total Bilirubin 0.7 mg/dL (0.15-1.2); Total Protein 6.7 g/dL (6.6-8.7)
[2022-10-21 08:42] LABS: Urine Creatinine 64 mg/dL (28-217)
[2022-10-21 08:45] LABS: UPRO/UCREAT Ratio 0.36 mg/mg CR; Urine Protein Random 23 mg/dL
== END 2022-10-21 07:41 | disposition home or self-care (01) ==
LOC: LAB 07:43
PROVIDERS: PCP Family Medicine; Visit Provider Nurse Practitioner
DX: E79.0 Hyperuricemia without signs of inflammatory arthritis and tophaceous disease (principal); Z94.0 Kidney transplant status; I12.9 Hypertensive chronic kidney disease with stage 1 through stage 4 chronic kidney disease, or unspecified chronic kidney disease; N18.9 Chronic kidney disease, unspecified; N25.81 Secondary hyperparathyroidism of renal origin; M81.8 Other osteoporosis without current pathological fracture; Z79.60 Long term (current) use of unspecified immunomodulators and immunosuppressants
CPT/HCPCS: 80053; 80197; 82570; 83735; 84100; 84156; 85025

== ENCOUNTER 2022-12-22 08:23 | Outpatient (CLI) | payer OTHER, SELFPAY ==
[2022-12-22 08:56] LABS: Basophils # 0.1 10^3/uL (0.0-0.1); Basophils % 0.7 %; Eosinophils # 0.2 10^3/uL (0.0-0.8); Eosinophils % 2.1 %; Hematocrit 40.9 % (36-47); Lymphocytes # 1.4 10^3/uL (0.8-4.8); Lymphocytes % 19.6 %; Mean Corpuscular HGB Conc 32.3 g/dL (30-55); Mean Corpuscular Hemoglobin 29.7 pg (27-33); Mean Corpuscular Volume 92.1 fl (85-98); Mean Platelet Volume 8.3 fL (7.4-10.4); Monocytes # 0.5 10^3/uL (0.2-0.9); Monocytes % 7.1 %; Neutrophils # 4.92 10^3/uL (1.8-7.7); Neutrophils % 70.1 %; Nucleated Red Blood Cells % 0 %; Platelet Count 185 10^3/cmm (157-399); Red Blood Count 4.44 10^6/uL (3.85-5.65); Red Cell Distribution Width 12.7 % (12.1-15.1); White Blood Count 7.03 10^3/uL (3.29-11.43)
[2022-12-22 09:19] LABS: Urine Creatinine 46 mg/dL (28-217); Urine Protein Random 15 mg/dL
[2022-12-22 09:25] LABS: UPRO/UCREAT Ratio 0.33 mg/mg CR
[2022-12-22 09:29] LABS: Calcium 9.3 mg/dL (8.5-10.5); Parathyroid Hormone 32.4 pg/mL (15-65)
[2022-12-22 09:39] LABS: 25 Hydroxy Vitamin D 45 ng/mL (30-100); Alanine Aminotransferase 12 U/L (0-33); Albumin Level 4.3 g/dL (3.5-5.2); Alkaline Phosphatase 80 U/L (35-105); Anion Gap 12.3 (5-19); Aspartate Amino Transferase 14 U/L (0-32); Blood Urea Nitrogen 21 mg/dL (8-23); Calcium 9.3 mg/dL (8.5-10.5); Carbon Dioxide 29 mmol/L (22-29); Chloride 100 mmol/L (98-107); Chol HDL Ratio 3.16 mg/dL (0.0-4.40); Cholesterol 117 mg/dL (0-200); Globulin 2.9 g/dL (1.3-4.6); Glucose 97 mg/dL (65-115); HDL Cholesterol 37 mg/dL (60-100); LDL Cholesterol Calculated 56 mg/dL (50-129); LDL HDL Ratio 1.51 RATIO (0.00-3.22); Magnesium 1.6 mg/dL (1.7-2.3); Osmolality Calculated 287 mOsm/kg (285-295); Phosphorus 3.8 mg/dL (2.5-4.5); Potassium 4.3 mmol/L (3.5-5.1); Sodium 137 mmol/L (136-145); Total Bilirubin 0.7 mg/dL (0.15-1.2); Total Protein 7.2 g/dL (6.6-8.7); Triglycerides 119 mg/dL (0-150); Uric Acid 4.3 mg/dL (2.4-5.7)
[2022-12-27 05:30] LABS: CMV DNA By PCR NOT DETECTED; CMV DNA, QN PCR NOT DETECTED Log IU/mL; SOURCE WHOLE BLOOD
[2022-12-27 13:53] LABS: BK VIRUS DNA, QN PCR NOT DETECTED copies/mL; BK VIRUS DNA, QN RT PCR NOT DETECTED Log cps/mL; SOURCE WHOLE BLOOD
== END 2022-12-22 08:24 | disposition home or self-care (01) ==
PROVIDERS: PCP Family Medicine; Visit Provider Nurse Practitioner
DX: E79.0 Hyperuricemia without signs of inflammatory arthritis and tophaceous disease (principal); Z94.0 Kidney transplant status; I12.9 Hypertensive chronic kidney disease with stage 1 through stage 4 chronic kidney disease, or unspecified chronic kidney disease; N18.9 Chronic kidney disease, unspecified; N25.81 Secondary hyperparathyroidism of renal origin; Z79.60 Long term (current) use of unspecified immunomodulators and immunosuppressants; M81.8 Other osteoporosis without current pathological fracture
CPT/HCPCS: 36415; 80053; 80061; 80197; 82306; 82310; 82570; 83735; 83970; 84100; 84156; 84550; 85025; 87496; 87798

== ENCOUNTER 2022-12-29 07:17 | Day surgery (SDC) | payer OTHER, SELFPAY ==
--- NOTE | 2022-12-29 07:35 | ANES.PREANE2 ---
Pre-Anesthetic Assessment Height/Weight: Height 1.7 m Preop Diagnosis: screening Operation Date: 12/29/22 08:35 Proposed Procedures p Colonoscopy 31124,Z12.11(Not Applicable) - Victor M Tapia MD Familial anesthetic complications: none Was Beta Angel taken within 24 hours: Yes Was Clonidine taken within 24 hours: N/A Last Intake: 18:30 Social No alcohol and No tobacco Exam alert, oriented x 3, clear to auscultation bilaterally and regular rate & rhythm Airway Submandibular: within normal limits Cervical ROM: within normal limits Mallampati: Class II Dentition: full Pulmonary None reported CV/HEM Anemia and Hypertension Chronic Renal Failure (transplant 12-26-17) Hepatic None reported GI None reported Metabolic Thyroid Disease [facility] [place] None reported Neuropsych None reported Anesthetic Plan ASA status: 3 Anesthesia: MAC Risk of > 500 ml blood loss (7ml/kg in children): No Medications/Allergies Home Medications Medication Instructions Recorded Confirmed Last Taken Type amlodipine 10 mg tablet 10 mg PO DAILY 09/24/19 12/27/22 12/27/22 History ascorbic acid (vitamin C) 500 mg 500 mg PO DAILY 09/24/19 12/27/22 12/27/22 History tablet (Vitamin C) aspirin 81 mg chewable tablet 81 mg PO DAILY 09/24/19 12/27/22 12/27/22 History febuxostat 40 mg tablet (Uloric) 40 mg PO DAILY 09/24/19 12/27/22 12/27/22 History levothyroxine 125 mcg tablet 125 mcg PO DAILY 09/24/19 12/27/22 12/27/22 History magnesium oxide 400 mg (241.3 mg 800 mg PO BID 09/24/19 12/27/22 12/27/22 History magnesium) tablet (MagOx) mycophenolate sodium 180 mg 360 mg PO BID 09/24/19 12/27/22 12/27/22 History tablet,delayed release (Myfortic) pravastatin 20 mg tablet 20 mg PO DAILY 09/24/19 12/27/22 12/27/22 History prednisone 5 mg tablet 5 mg PO DAILY 09/24/19 12/27/22 12/27/22 History tacrolimus 1 mg tablet,extended 2 mg PO DAILY 09/24/19 12/27/22 12/27/22 History release 24 hr (Envarsus XR) zinc 50 mg tablet 50 mg PO DAILY 09/24/19 12/27/22 12/27/22 History famotidine 20 mg tablet 20 mg PO DAILY 12/23/21 12/27/22 12/27/22 History levothyroxine 112 mcg tablet 112 mcg PO DAILY 12/23/21 12/27/22 12/27/22 History (Euthyrox) Allergies Allergy/AdvReac Type Severity Reaction Status Date / Time lisinopril Allergy tongue Verified 12/27/22 09:48 swelling [facility] Anesthesia Medical History History of colon polyps Hypothyroidism Polycystic kidney disease Surgical History History of colonoscopy History of hysterectomy History of kidney transplant History of sinus surgery History of tubal ligation Social History Smoking and tobacco/nicotine status: never used tobacco/nicotine Data Anesthesia Cardiac Studies: No Data to Display
[2022-12-29 07:49] VITALS: BP 141/77; PULSE 73; RESP 18; TEMP 36.3; O2SAT 98; BMI 26.6
[2022-12-29] MEDS: sodium chloride 0.9% 1,000 ML 30 ML IV (07:53)
--- NOTE | 2022-12-29 07:55 | W.PM.OPSFHP ---
Same Day Surgery H&P Indication for Procedure/HPI DATE OF PROCEDURE: December 29, 2022 CHIEF COMPLAINT/INDICATIONFOR SURGICAL PROCEDURE: need for screening colonoscopy PREOP DIAGNOSIS: screening PLANNED PROCEDURE: Operation Date: 12/29/22 08:35 Proposed Procedures p Colonoscopy 37713,Z12.11(Not Applicable) - Victor M Tapia MD Medications/Allergies* Home Medications Medication Instructions Recorded Confirmed Type amlodipine 10 mg tablet 10 mg PO DAILY 09/24/19 12/27/22 History ascorbic acid (vitamin C) 500 mg 500 mg PO DAILY 09/24/19 12/27/22 History tablet (Vitamin C) aspirin 81 mg chewable tablet 81 mg PO DAILY 09/24/19 12/27/22 History febuxostat 40 mg tablet (Uloric) 40 mg PO DAILY 09/24/19 12/27/22 History levothyroxine 125 mcg tablet 125 mcg PO DAILY 09/24/19 12/27/22 History magnesium oxide 400 mg (241.3 mg 800 mg PO BID 09/24/19 12/27/22 History magnesium) tablet (MagOx) mycophenolate sodium 180 mg 360 mg PO BID 09/24/19 12/27/22 History tablet,delayed release (Myfortic) pravastatin 20 mg tablet 20 mg PO DAILY 09/24/19 12/27/22 History prednisone 5 mg tablet 5 mg PO DAILY 09/24/19 12/27/22 History tacrolimus 1 mg tablet,extended 2 mg PO DAILY 09/24/19 12/27/22 History release 24 hr (Envarsus XR) zinc 50 mg tablet 50 mg PO DAILY 09/24/19 12/27/22 History famotidine 20 mg tablet 20 mg PO DAILY 12/23/21 12/27/22 History levothyroxine 112 mcg tablet 112 mcg PO DAILY 12/23/21 12/27/22 History (Euthyrox) carvedilol 25 mg tablet (Coreg) 25 mg PO DAILY 12/29/22 12/29/22 History Allergies/Adverse Reactions Allergy/AdvReac Type Severity Reaction Status Date / Time lisinopril Allergy tongue Verified 12/27/22 09:48 swelling Pertinent History/Comorbid Conditions* Medical History (Updated 10/21/22 @ 12:37 by Victor M Tapia MD) History of colon polyps Hypothyroidism Polycystic kidney disease Surgical History (Updated 08/03/21 @ 11:25 by Bennie Almeida DO) History of colonoscopy History of hysterectomy History of kidney transplant History of sinus surgery History of tubal ligation Social History Smoking and tobacco/nicotine status: never used tobacco/nicotine Pertinent Exam Findings alert, oriented x 3, clear to auscultation bilaterally, regular rate & rhythm and operative site marked Recommendations Surgery/Procedure today Coding Level of Care Code Acute Code for Chg Fwd Diagnoses
[2022-12-29 10:24] VITALS: BP 119/69; PULSE 72; RESP 16; TEMP 36.1; O2SAT 95
[2022-12-29 10:33] VITALS: BP 139/76; PULSE 69; RESP 18; O2SAT 99
[2022-12-29 10:39] VITALS: BP 144/83; PULSE 66; RESP 18; O2SAT 99
--- NOTE | 2022-12-29 11:59 | ANE.PACU2 ---
Inpatient post-anesthesia follow up: Airway intact: Yes Vital signs: Temperature 97.0 F Pulse Rate 66 Respiratory Rate 18 Blood Pressure 144/83 Pulse Oximetry 99 Oxygen Delivery Me thod Room Air Oxygen Flow Rate Fraction of Inspir ed Oxygen Hydration adequate: Yes Nausea and vomiting: No Pain level: 2 Mental status: Baseline
== END 2022-12-29 10:53 | disposition home or self-care (01) ==
PROVIDERS: PCP Family Medicine; Visit Provider Surgery
PROC: 0DJD8ZZ Inspection of Lower Intestinal Tract, Via Natural or Artificial Opening Endoscopic (ICD-10-PCS; CPT 45378; principal; 2022-12-29 08:35)
DX: Z12.11 Encounter for screening for malignant neoplasm of colon (principal); Z86.010 Personal history of colon polyps; K57.30 Diverticulosis of large intestine without perforation or abscess without bleeding; K64.8 Other hemorrhoids; Z79.82 Long term (current) use of aspirin; E03.9 Hypothyroidism, unspecified; E28.2 Polycystic ovarian syndrome; I10 Essential (primary) hypertension
CPT/HCPCS: 45378; J2704; J7030

== ENCOUNTER 2023-02-02 08:09 | Oncology outpatient (recurring) (ONCR) | payer OTHER, SELFPAY ==
[2023-02-02 08:35] VITALS: BP 119/66; PULSE 61; RESP 12; TEMP 36.2; O2SAT 98
[2023-02-02] MEDS: denosumab 60 mg SDV SUBCUT (08:42)
== END 2023-02-19 23:59 | disposition home or self-care (01) ==
PROVIDERS: PCP Family Medicine; Visit Provider Family Medicine
DX: M81.0 Age-related osteoporosis without current pathological fracture (principal)
CPT/HCPCS: 96372; J0897

== ENCOUNTER 2023-02-21 08:07 | Outpatient (CLI) | payer OTHER, SELFPAY ==
[2023-02-21 08:49] LABS: Basophils # 0.1 10^3/uL (0.0-0.1); Basophils % 0.6 %; Eosinophils # 0.2 10^3/uL (0.0-0.8); Eosinophils % 2.4 %; Hematocrit 41.7 % (36-47); Lymphocytes # 1.6 10^3/uL (0.8-4.8); Lymphocytes % 19.5 %; Mean Corpuscular HGB Conc 31.4 g/dL (30-55); Mean Corpuscular Hemoglobin 28.7 pg (27-33); Mean Corpuscular Volume 91.2 fl (85-98); Mean Platelet Volume 8.4 fL (7.4-10.4); Monocytes # 0.5 10^3/uL (0.2-0.9); Neutrophils # 5.73 10^3/uL (1.8-7.7); Neutrophils % 71.1 %; Nucleated Red Blood Cells % 0 %; Platelet Count 209 10^3/cmm (157-399); Red Blood Count 4.57 10^6/uL (3.85-5.65); Red Cell Distribution Width 13.2 % (12.1-15.1); White Blood Count 8.05 10^3/uL (3.29-11.43)
[2023-02-21 09:07] LABS: Alanine Aminotransferase 9 U/L (0-33); Albumin Level 4.2 g/dL (3.5-5.2); Alkaline Phosphatase 91 U/L (35-105); Anion Gap 14.6 (5-19); Aspartate Amino Transferase 13 U/L (0-32); Blood Urea Nitrogen 23 mg/dL (8-23); Carbon Dioxide 27 mmol/L (22-29); Chloride 101 mmol/L (98-107); Globulin 3.1 g/dL (1.3-4.6); Glucose 110 mg/dL (65-115); Osmolality Calculated 290 mOsm/kg (285-295); Phosphorus 3.7 mg/dL (2.5-4.5); Potassium 4.6 mmol/L (3.5-5.1); Sodium 138 mmol/L (136-145); Total Bilirubin 0.6 mg/dL (0.15-1.2); Total Protein 7.3 g/dL (6.6-8.7)
[2023-02-21 09:24] LABS: Urine Creatinine 71 mg/dL (28-217)
[2023-02-21 09:26] LABS: Urine Protein Random 28 mg/dL
[2023-02-21 09:27] LABS: UPRO/UCREAT Ratio 0.39 mg/mg CR
== END 2023-02-21 08:08 | disposition home or self-care (01) ==
LOC: LAB 08:12
PROVIDERS: PCP Family Medicine; Visit Provider Nurse Practitioner
DX: E79.0 Hyperuricemia without signs of inflammatory arthritis and tophaceous disease (principal); Z94.0 Kidney transplant status; N25.81 Secondary hyperparathyroidism of renal origin; I12.9 Hypertensive chronic kidney disease with stage 1 through stage 4 chronic kidney disease, or unspecified chronic kidney disease; N18.9 Chronic kidney disease, unspecified; E83.9 Disorder of mineral metabolism, unspecified; M89.9 Disorder of bone, unspecified; Z79.60 Long term (current) use of unspecified immunomodulators and immunosuppressants; M81.8 Other osteoporosis without current pathological fracture
CPT/HCPCS: 36415; 80053; 80197; 82570; 83735; 84100; 84156; 85025

== ENCOUNTER 2023-03-27 08:31 | Outpatient (CLI) | payer OTHER, SELFPAY ==
[2023-03-27 09:19] LABS: Calcium 9.4 mg/dL (8.5-10.5); Chol HDL Ratio 3.17 mg/dL (0.0-4.40); Cholesterol 146 mg/dL (0-200); HDL Cholesterol 46 mg/dL (60-100); LDL Cholesterol Calculated 77 mg/dL (50-129); LDL HDL Ratio 1.67 RATIO (0.00-3.22); Triglycerides 113 mg/dL (0-150); Uric Acid 5.1 mg/dL (2.4-5.7)
[2023-03-27 09:25] LABS: Parathyroid Hormone 55.3 pg/mL (15-65)
[2023-03-27 09:33] LABS: 25 Hydroxy Vitamin D 36 ng/mL (30-100)
[2023-04-01 17:59] LABS: CMV DNA By PCR NOT DETECTED; CMV DNA, QN PCR NOT DETECTED Log IU/mL; SOURCE BLOOD
== END 2023-03-27 08:32 | disposition home or self-care (01) ==
LOC: LAB 08:35
PROVIDERS: PCP Family Medicine; Visit Provider Nurse Practitioner
DX: E79.0 Hyperuricemia without signs of inflammatory arthritis and tophaceous disease (principal); Z79.60 Long term (current) use of unspecified immunomodulators and immunosuppressants; I12.9 Hypertensive chronic kidney disease with stage 1 through stage 4 chronic kidney disease, or unspecified chronic kidney disease; N18.9 Chronic kidney disease, unspecified; N25.81 Secondary hyperparathyroidism of renal origin; E83.9 Disorder of mineral metabolism, unspecified; M89.9 Disorder of bone, unspecified; M81.8 Other osteoporosis without current pathological fracture
CPT/HCPCS: 36415; 80061; 82306; 82310; 83970; 84550; 87496; 87798

== ENCOUNTER 2023-04-25 07:56 | Outpatient (CLI) | payer OTHER, SELFPAY ==
[2023-04-25 08:33] LABS: Basophils # 0.1 10^3/uL (0.0-0.1); Basophils % 0.7 %; Eosinophils # 0.1 10^3/uL (0.0-0.8); Eosinophils % 1.6 %; Hematocrit 41.1 % (36-47); Lymphocytes # 1.6 10^3/uL (0.8-4.8); Mean Corpuscular HGB Conc 32.1 g/dL (30-55); Mean Corpuscular Hemoglobin 28.9 pg (27-33); Mean Corpuscular Volume 90.1 fl (85-98); Mean Platelet Volume 8.3 fL (7.4-10.4); Monocytes # 0.4 10^3/uL (0.2-0.9); Monocytes % 5.7 %; Neutrophils # 5.21 10^3/uL (1.8-7.7); Neutrophils % 70.7 %; Nucleated Red Blood Cells % 0 %; Platelet Count 180 10^3/cmm (157-399); Red Blood Count 4.56 10^6/uL (3.85-5.65); Red Cell Distribution Width 13.6 % (12.1-15.1); White Blood Count 7.37 10^3/uL (3.29-11.43)
[2023-04-25 09:03] LABS: Urine Creatinine 52 mg/dL (28-217)
[2023-04-25 09:04] LABS: Alanine Aminotransferase 11 U/L (0-33); Albumin Level 4.1 g/dL (3.5-5.2); Alkaline Phosphatase 66 U/L (35-105); Aspartate Amino Transferase 16 U/L (0-32); Blood Urea Nitrogen 18 mg/dL (8-23); Calcium 8.9 mg/dL (8.5-10.5); Carbon Dioxide 24 mmol/L (22-29); Chloride 99 mmol/L (98-107); Globulin 3.2 g/dL (1.3-4.6); Glomerular Filtration Rate 50.2 mL/min (90-130); Glucose 110 mg/dL (65-115); Osmolality Calculated 285 mOsm/kg (285-295); Sodium 136 mmol/L (136-145); Total Bilirubin 0.6 mg/dL (0.15-1.2); Total Protein 7.3 g/dL (6.6-8.7)
== END 2023-04-25 07:57 | disposition home or self-care (01) ==
LOC: LAB 07:58
PROVIDERS: PCP Family Medicine; Visit Provider Nurse Practitioner
DX: E79.0 Hyperuricemia without signs of inflammatory arthritis and tophaceous disease (principal); Z94.0 Kidney transplant status; N25.81 Secondary hyperparathyroidism of renal origin; I12.9 Hypertensive chronic kidney disease with stage 1 through stage 4 chronic kidney disease, or unspecified chronic kidney disease; N18.9 Chronic kidney disease, unspecified; E83.9 Disorder of mineral metabolism, unspecified; M89.9 Disorder of bone, unspecified; Z79.60 Long term (current) use of unspecified immunomodulators and immunosuppressants; M81.8 Other osteoporosis without current pathological fracture
CPT/HCPCS: 36415; 80053; 80197; 82570; 83735; 84100; 84156; 85025

== ENCOUNTER 2023-06-22 07:46 | Outpatient (CLI) | payer OTHER, SELFPAY ==
[2023-06-22 08:21] LABS: Basophils # 0.1 10^3/uL (0.0-0.1); Basophils % 0.8 %; Eosinophils # 0.3 10^3/uL (0.0-0.8); Eosinophils % 2.9 %; Hematocrit 41.7 % (36-47); Lymphocytes # 1.6 10^3/uL (0.8-4.8); Mean Corpuscular HGB Conc 32.4 g/dL (30-55); Mean Corpuscular Hemoglobin 29.3 pg (27-33); Mean Corpuscular Volume 90.7 fl (85-98); Mean Platelet Volume 8.2 fL (7.4-10.4); Monocytes # 0.5 10^3/uL (0.2-0.9); Monocytes % 5.9 %; Neutrophils # 6.16 10^3/uL (1.8-7.7); Neutrophils % 71.2 %; Nucleated Red Blood Cells % 0 %; Platelet Count 194 10^3/cmm (157-399); Red Cell Distribution Width 13.2 % (12.1-15.1); White Blood Count 8.65 10^3/uL (3.29-11.43)
[2023-06-22 08:37] LABS: Urine Creatinine 47 mg/dL (28-217); Urine Protein Random 19 mg/dL
[2023-06-22 08:41] LABS: Alanine Aminotransferase 9 U/L (0-33); Albumin Level 4.3 g/dL (3.5-5.2); Alkaline Phosphatase 69 U/L (35-105); Anion Gap 14.6 (5-19); Aspartate Amino Transferase 15 U/L (0-32); Blood Urea Nitrogen 20 mg/dL (8-23); Calcium 8.5 mg/dL (8.5-10.5); Carbon Dioxide 25 mmol/L (22-29); Chloride 101 mmol/L (98-107); Cholesterol 139 mg/dL (0-200); Glucose 101 mg/dL (65-115); HDL Cholesterol 48 mg/dL (60-100); LDL Cholesterol Calculated 71 mg/dL (50-129); LDL HDL Ratio 1.48 RATIO (0.00-3.22); Magnesium 1.8 mg/dL (1.7-2.3); Osmolality Calculated 285 mOsm/kg (285-295); Phosphorus 3.5 mg/dL (2.5-4.5); Potassium 4.6 mmol/L (3.5-5.1); Sodium 136 mmol/L (136-145); Total Bilirubin 0.6 mg/dL (0.15-1.2); Total Protein 7.3 g/dL (6.6-8.7); Triglycerides 101 mg/dL (0-150); Uric Acid 4.3 mg/dL (2.4-5.7)
[2023-06-22 08:42] LABS: Calcium 8.4 mg/dL (8.5-10.5)
[2023-06-22 08:47] LABS: Parathyroid Hormone 89.9 pg/mL (15-65)
[2023-06-22 08:56] LABS: 25 Hydroxy Vitamin D 42 ng/mL (30-100)
[2023-06-25 14:19] LABS: CMV DNA By PCR NOT DETECTED; CMV DNA, QN PCR NOT DETECTED Log IU/mL; SOURCE WHOLE BLOOD
[2023-06-27 18:19] LABS: BK VIRUS DNA, QN PCR NOT DETECTED copies/mL; BK VIRUS DNA, QN RT PCR NOT DETECTED Log cps/mL; SOURCE WHOLE BLOOD
== END 2023-06-22 07:47 | disposition home or self-care (01) ==
LOC: LAB 07:52
PROVIDERS: PCP Family Medicine; Visit Provider Nurse Practitioner
DX: Z94.0 Kidney transplant status (principal); I12.9 Hypertensive chronic kidney disease with stage 1 through stage 4 chronic kidney disease, or unspecified chronic kidney disease; N18.9 Chronic kidney disease, unspecified; E83.9 Disorder of mineral metabolism, unspecified; M89.9 Disorder of bone, unspecified; Z79.60 Long term (current) use of unspecified immunomodulators and immunosuppressants; M81.8 Other osteoporosis without current pathological fracture
CPT/HCPCS: 36415; 80053; 80061; 80197; 82306; 82310; 82570; 83735; 83970; 84100; 84156; 84550; 85025; 87496; 87798

== ENCOUNTER 2023-08-22 08:06 | Outpatient (CLI) | payer OTHER, SELFPAY ==
[2023-08-22 08:45] LABS: Basophils # 0.1 10^3/uL (0.0-0.1); Basophils % 0.6 %; Eosinophils # 0.2 10^3/uL (0.0-0.8); Eosinophils % 2.5 %; Hematocrit 41.4 % (36-47); Lymphocytes # 1.6 10^3/uL (0.8-4.8); Lymphocytes % 19.9 %; Mean Corpuscular HGB Conc 32.1 g/dL (30-55); Mean Corpuscular Hemoglobin 29.6 pg (27-33); Mean Platelet Volume 8.6 fL (7.4-10.4); Monocytes # 0.5 10^3/uL (0.2-0.9); Neutrophils # 5.74 10^3/uL (1.8-7.7); Neutrophils % 70.5 %; Nucleated Red Blood Cells % 0 %; Platelet Count 210 10^3/cmm (157-399); Red Cell Distribution Width 13.2 % (12.1-15.1); White Blood Count 8.14 10^3/uL (3.29-11.43)
[2023-08-22 08:51] LABS: Urine Appearance Cloudy (CLEAR); Urine Color Yellow (Yellow)
[2023-08-22 08:52] LABS: Add Urine Culture? Yes; Bacteria Urine 2+ /hpf; Bilirubin Urine Neg (Negative); Blood Urine Trace (Negative); Glucose Urine UA Norm (Normal); Ketones Urine Negative (Negative); Leukocyte Esterase Urine 2+ (Negative); Mucus Urine 1+ /hpf; Nitrate Urine Negative (Negative); Protein Urine Neg (Negative); Urobilinogen Urine Norm (Negative); WBC Urine >100 /hpf (0-5); pH Urine 7 (5-7)
[2023-08-22 09:12] LABS: Urine Creatinine 69 mg/dL (28-217); Urine Protein Random 17 mg/dL
[2023-08-22 09:13] LABS: UPRO/UCREAT Ratio 0.25 mg/mg CR
[2023-08-22 09:14] LABS: Alanine Aminotransferase 11 U/L (0-33); Albumin Level 4.2 g/dL (3.5-5.2); Alkaline Phosphatase 64 U/L (35-105); Anion Gap 16.3 (5-19); Aspartate Amino Transferase 15 U/L (0-32); Blood Urea Nitrogen 25 mg/dL (8-23); Calcium 9.4 mg/dL (8.5-10.5); Carbon Dioxide 26 mmol/L (22-29); Chloride 102 mmol/L (98-107); Glucose 107 mg/dL (65-115); Magnesium 1.9 mg/dL (1.7-2.3); Osmolality Calculated 295 mOsm/kg (285-295); Potassium 4.3 mmol/L (3.5-5.1); Sodium 140 mmol/L (136-145); Total Bilirubin 0.6 mg/dL (0.15-1.2); Total Protein 7.2 g/dL (6.6-8.7)
== END 2023-08-22 08:07 | disposition home or self-care (01) ==
LOC: LAB 08:08
PROVIDERS: PCP Family Medicine; Referring Provider Family Medicine; Visit Provider Hospitalist
DX: N25.81 Secondary hyperparathyroidism of renal origin (principal); E79.0 Hyperuricemia without signs of inflammatory arthritis and tophaceous disease; Z94.0 Kidney transplant status; I10 Essential (primary) hypertension; N18.2 Chronic kidney disease, stage 2 (mild); E83.9 Disorder of mineral metabolism, unspecified; M89.9 Disorder of bone, unspecified; Z79.60 Long term (current) use of unspecified immunomodulators and immunosuppressants; Q61.3 Polycystic kidney, unspecified; D63.1 Anemia in chronic kidney disease
CPT/HCPCS: 36415; 80053; 80197; 81001; 82570; 83735; 84100; 84156; 84439; 84443; 85025; 87077; 87086; 87186

== ENCOUNTER 2023-08-28 08:45 | Outpatient (CLI) | payer OTHER, SELFPAY ==
--- NOTE | 2023-08-28 08:49 | MM_ITS ---
WS: [id number] BILATERAL 3D TOMOSYNTHESIS DIGITAL SCREENING MAMMOGRAPHY WITH CAD CLINICAL INFORMATION: SCREENING HISTORY: Screening mammogram. No current complaints. COMPARISON: 2022 TECHNIQUE: Bilateral CC and MLO views. FINDINGS: Scattered fibroglandular densities bilaterally. No suspicious focal mass, asymmetry, calcifications, or architectural distortion. No evidence of malignancy. Few incidental punctate calcifications. Vascu lar calcification. Stable nodular breast tissue upper outer breast bilaterally. MM/[place] [id number] IMPRESSION: BI-RADS: 2-Benign FOLLOW UP: 1 Year Follow-up Recommend return to annual screening mammography.
== END 2023-08-28 08:46 | disposition home or self-care (01) ==
LOC: RAD 08:45
PROVIDERS: PCP Family Medicine; Visit Provider Family Medicine
DX: Z12.31 Encounter for screening mammogram for malignant neoplasm of breast (principal)
CPT/HCPCS: 77063; 77067

== ENCOUNTER 2023-09-05 07:55 | Oncology outpatient (recurring) (ONCR) | payer OTHER, SELFPAY ==
[2023-09-05 08:07] VITALS: BP 113/72; PULSE 64; RESP 16; TEMP 36.6; O2SAT 96
[2023-09-05] MEDS: denosumab 60 mg SDV SUBCUT (08:09)
== END 2023-09-20 23:59 | disposition home or self-care (01) ==
LOC: ONCMED 07:55
PROVIDERS: PCP Family Medicine; Visit Provider Family Medicine
DX: M81.0 Age-related osteoporosis without current pathological fracture (principal)
CPT/HCPCS: 96372; J0897

== ENCOUNTER 2023-09-25 07:56 | Outpatient (CLI) | payer OTHER, SELFPAY ==
[2023-09-25 08:55] LABS: Chol HDL Ratio 2.85 mg/dL (0.0-4.40); Cholesterol 117 mg/dL (0-200); HDL Cholesterol 41 mg/dL (60-100); LDL Cholesterol Calculated 37 mg/dL (50-129); Triglycerides 194 mg/dL (0-150); Uric Acid 3.6 mg/dL (2.4-5.7)
[2023-09-25 09:37] LABS: Calcium 9.1 mg/dL (8.5-10.5)
[2023-09-25 09:44] LABS: Parathyroid Hormone 62.1 pg/mL (15-65)
[2023-09-25 09:52] LABS: 25 Hydroxy Vitamin D 37 ng/mL (30-100)
[2023-09-29 00:45] LABS: CMV DNA By PCR NOT DETECTED; CMV DNA, QN PCR NOT DETECTED Log IU/mL; SOURCE WHOLE BLOOD
[2023-09-29 10:09] LABS: BK VIRUS DNA, QN PCR NOT DETECTED copies/mL; BK VIRUS DNA, QN RT PCR NOT DETECTED Log cps/mL; SOURCE SERUM
== END 2023-09-25 07:57 | disposition home or self-care (01) ==
LOC: LAB 07:58
PROVIDERS: PCP Family Medicine; Visit Provider Hospitalist
DX: N25.81 Secondary hyperparathyroidism of renal origin (principal); E79.0 Hyperuricemia without signs of inflammatory arthritis and tophaceous disease; Z94.0 Kidney transplant status; I10 Essential (primary) hypertension; N18.2 Chronic kidney disease, stage 2 (mild); D63.1 Anemia in chronic kidney disease; N18.9 Chronic kidney disease, unspecified; E83.9 Disorder of mineral metabolism, unspecified; N89.9 Noninflammatory disorder of vagina, unspecified; Z79.60 Long term (current) use of unspecified immunomodulators and immunosuppressants; Q61.3 Polycystic kidney, unspecified
CPT/HCPCS: 36415; 80061; 82306; 82310; 83970; 84550; 87496; 87798

== ENCOUNTER 2023-10-25 07:42 | Outpatient (CLI) | payer OTHER, SELFPAY ==
[2023-10-25 08:12] LABS: Bilirubin Urine Negative (Negative); Blood Urine Negative (Negative); Glucose Urine UA Negative (Normal); Ketones Urine Negative (Negative); Leukocyte Esterase Urine 3+ (Negative); Nitrate Urine Positive (Negative); Protein Urine Negative (Negative); Specific Gravity, Urine 1.006 (1.005-1.030); Urine Appearance Cloudy (CLEAR); Urine Color Yellow (Yellow); Urobilinogen Urine 0.2 mg/dL (Negative)
[2023-10-25 08:15] LABS: Basophils # 0.1 10^3/uL (0.0-0.1); Basophils % 0.5 %; Eosinophils # 0.2 10^3/uL (0.0-0.8); Eosinophils % 2.1 %; Hematocrit 41.8 % (36-47); Lymphocytes # 1.5 10^3/uL (0.8-4.8); Lymphocytes % 16.5 %; Mean Corpuscular HGB Conc 32.3 g/dL (30-55); Mean Corpuscular Hemoglobin 29.7 pg (27-33); Mean Corpuscular Volume 91.9 fl (85-98); Mean Platelet Volume 8.2 fL (7.4-10.4); Monocytes # 0.5 10^3/uL (0.2-0.9); Monocytes % 5.8 %; Neutrophils % 74.8 %; Nucleated Red Blood Cells % 0 %; Platelet Count 202 10^3/cmm (157-399); Red Blood Count 4.55 10^6/uL (3.85-5.65); Red Cell Distribution Width 13.1 % (12.1-15.1)
[2023-10-25 08:26] LABS: Add Urine Culture? Yes; Bacteria Urine 2+ /hpf; RBC Urine 0-4 /hpf (0-2); Squamous Epithelial Cell Urine 0-4 /hpf (0-5); Transitional Epi Cells Urine 0-4 /hpf; WBC Urine >100 /hpf (0-5)
[2023-10-25 08:35] LABS: Alanine Aminotransferase 9 U/L (0-33); Albumin Level 4.2 g/dL (3.5-5.2); Alkaline Phosphatase 69 U/L (35-105); Anion Gap 17.4 (5-19); Aspartate Amino Transferase 13 U/L (0-32); Blood Urea Nitrogen 17 mg/dL (8-23); Calcium 8.8 mg/dL (8.5-10.5); Carbon Dioxide 23 mmol/L (22-29); Chloride 102 mmol/L (98-107); Globulin 3.1 g/dL (1.3-4.6); Glomerular Filtration Rate 55.8 mL/min (90-130); Glucose 124 mg/dL (65-115); Magnesium 1.9 mg/dL (1.7-2.3); Osmolality Calculated 289 mOsm/kg (285-295); Phosphorus 2.8 mg/dL (2.5-4.5); Potassium 4.4 mmol/L (3.5-5.1); Sodium 138 mmol/L (136-145); Total Bilirubin 0.8 mg/dL (0.15-1.2); Total Protein 7.3 g/dL (6.6-8.7)
[2023-10-25 08:38] LABS: Urine Creatinine 27 mg/dL (28-217); Urine Protein Random 8 mg/dL
== END 2023-10-25 07:43 | disposition home or self-care (01) ==
LOC: LAB 07:47
PROVIDERS: PCP Family Medicine; Visit Provider Hospitalist
DX: N25.81 Secondary hyperparathyroidism of renal origin (principal); E79.0 Hyperuricemia without signs of inflammatory arthritis and tophaceous disease; Z94.0 Kidney transplant status; I10 Essential (primary) hypertension; N18.2 Chronic kidney disease, stage 2 (mild); D63.1 Anemia in chronic kidney disease; N18.9 Chronic kidney disease, unspecified; E83.9 Disorder of mineral metabolism, unspecified; M89.9 Disorder of bone, unspecified; Z79.60 Long term (current) use of unspecified immunomodulators and immunosuppressants; Q61.3 Polycystic kidney, unspecified
CPT/HCPCS: 36415; 80053; 80197; 81001; 82570; 83735; 84100; 84156; 85025; 87077; 87086; 87186

== ENCOUNTER 2023-12-27 07:49 | Outpatient (CLI) | payer OTHER, SELFPAY ==
[2023-12-27 08:36] LABS: Basophils # 0.1 10^3/uL (0.0-0.1); Basophils % 0.6 %; Eosinophils # 0.2 10^3/uL (0.0-0.8); Eosinophils % 2.1 %; Hematocrit 43.3 % (36-47); Lymphocytes # 1.9 10^3/uL (0.8-4.8); Mean Corpuscular HGB Conc 32.3 g/dL (30-55); Mean Corpuscular Hemoglobin 29.2 pg (27-33); Mean Corpuscular Volume 90.2 fl (85-98); Mean Platelet Volume 8.3 fL (7.4-10.4); Monocytes # 0.5 10^3/uL (0.2-0.9); Neutrophils # 6.86 10^3/uL (1.8-7.7); Neutrophils % 71.9 %; Nucleated Red Blood Cells % 0 %; Platelet Count 218 10^3/cmm (157-399); Red Cell Distribution Width 13.6 % (12.1-15.1); White Blood Count 9.55 10^3/uL (3.29-11.43)
[2023-12-27 08:48] LABS: Bacteria Urine Trace /hpf; Hyaline Casts Urine 2.05 /lpf; RBC Urine 0-2 /hpf (0-2)
[2023-12-27 08:57] LABS: Urine Creatinine 22 mg/dL (28-217); Urine Protein Random 4 mg/dL
[2023-12-27 09:00] LABS: Bilirubin Urine Negative (Negative); Blood Urine Negative (Negative); Glucose Urine UA Negative (Normal); Ketones Urine Negative (Negative); Leukocyte Esterase Urine 1+ (Negative); Nitrate Urine Negative (Negative); Protein Urine Negative (Negative); Specific Gravity, Urine 1.005 (1.005-1.030); Urine Appearance Clear (CLEAR); Urobilinogen Urine 0.2 mg/dL (Negative); pH Urine 6.5 (5-7)
[2023-12-27 09:02] LABS: Calcium 9.1 mg/dL (8.5-10.5); Parathyroid Hormone 52.1 pg/mL (15-65)
[2023-12-27 09:02] LABS: UPRO/UCREAT Ratio 0.18 mg/mg CR
[2023-12-27 09:05] LABS: Urine Color Orange (Yellow)
[2023-12-27 09:13] LABS: 25 Hydroxy Vitamin D 39 ng/mL (30-100); Alanine Aminotransferase 14 U/L (0-33); Albumin Level 4.6 g/dL (3.5-5.2); Alkaline Phosphatase 73 U/L (35-105); Anion Gap 14.5 (5-19); Aspartate Amino Transferase 15 U/L (0-32); Blood Urea Nitrogen 19 mg/dL (8-23); Calcium 9.1 mg/dL (8.5-10.5); Carbon Dioxide 24 mmol/L (22-29); Chloride 101 mmol/L (98-107); Chol HDL Ratio 2.89 mg/dL (0.0-4.40); Cholesterol 159 mg/dL (0-200); Globulin 2.2 g/dL (1.3-4.6); Glucose 106 mg/dL (65-115); HDL Cholesterol 55 mg/dL (60-100); LDL Cholesterol Calculated 82 mg/dL (50-129); LDL HDL Ratio 1.49 RATIO (0.00-3.22); Magnesium 1.8 mg/dL (1.7-2.3); Osmolality Calculated 283 mOsm/kg (285-295); Phosphorus 3.5 mg/dL (2.5-4.5); Potassium 4.5 mmol/L (3.5-5.1); Sodium 135 mmol/L (136-145); Total Bilirubin 0.8 mg/dL (0.15-1.2); Total Protein 6.8 g/dL (6.6-8.7); Triglycerides 109 mg/dL (0-150); Uric Acid 3.7 mg/dL (2.4-5.7)
== END 2023-12-27 07:50 | disposition home or self-care (01) ==
PROVIDERS: PCP Family Medicine; Visit Provider Hospitalist
DX: N25.81 Secondary hyperparathyroidism of renal origin (principal); E79.0 Hyperuricemia without signs of inflammatory arthritis and tophaceous disease; Z94.0 Kidney transplant status; I10 Essential (primary) hypertension; N18.2 Chronic kidney disease, stage 2 (mild); D63.1 Anemia in chronic kidney disease; N18.9 Chronic kidney disease, unspecified; E83.9 Disorder of mineral metabolism, unspecified; M89.9 Disorder of bone, unspecified; Z79.60 Long term (current) use of unspecified immunomodulators and immunosuppressants; Q61.3 Polycystic kidney, unspecified
CPT/HCPCS: 36415; 80053; 80061; 80197; 81001; 82306; 82310; 82570; 83735; 83970; 84100; 84156; 84550; 85025; 87496; 87798

== ENCOUNTER 2024-02-08 12:55 | Outpatient (CLI) | payer OTHER, SELFPAY ==
--- NOTE | 2024-02-08 12:58 | XR_ITS ---
WS: [id number] SCREENING DEXA SCAN [employer] CLINICAL INFORMATION: OSTEOPOROSIS COMPARISON: 2021 FINDINGS: The L1-L4 bone mineral density measures 1.100 g/cm2. This corresponds to a T score score of -0.7 and Z score of 0.5. Left femoral neck bone mineral density measures 0.713 g/cm2. This corresponds to a T score of -2.3 an d Z score of -1.5. Right femoral neck bone mineral density measures 0.718 g/cm2. This corresponds to a T score -2.3of an d Z score of -1.4. Mean femoral neck bone mineral density measures 0.716 g/cm2. This corresponds to a T score of -2.3 an d Z score of -1.4. XR/XR DEXA axial skeleton* [id number] IMPRESSION: Normal bone mineralization lumbar spine. Osteopenia femoral necks at the upper end of the range Patient's FRAX calculated 10 year probability for major osteoporotic fracture i s 30.2% and osteoporotic hip fracture is 6.7%. Bone marrow density lumbar spine increased 4.7% Bone mineral density femoral necks increased 2.6%
== END 2024-02-08 12:56 | disposition home or self-care (01) ==
LOC: RAD 12:56
PROVIDERS: PCP Family Medicine; Visit Provider Family Medicine
DX: Z13.820 Encounter for screening for osteoporosis (principal); M85.80 Other specified disorders of bone density and structure, unspecified site
CPT/HCPCS: 77080

== ENCOUNTER 2024-02-27 07:55 | Outpatient (CLI) | payer OTHER, SELFPAY ==
[2024-02-27 08:35] LABS: Basophils # 0.1 10^3/uL (0.0-0.1); Basophils % 0.8 %; Eosinophils # 0.3 10^3/uL (0.0-0.8); Eosinophils % 2.5 %; Hematocrit 43.1 % (36-47); Lymphocytes # 1.7 10^3/uL (0.8-4.8); Lymphocytes % 16.2 %; Mean Corpuscular HGB Conc 32.3 g/dL (30-55); Mean Corpuscular Hemoglobin 28.9 pg (27-33); Mean Corpuscular Volume 89.6 fl (85-98); Mean Platelet Volume 8.6 fL (7.4-10.4); Monocytes # 0.6 10^3/uL (0.2-0.9); Neutrophils # 7.84 10^3/uL (1.8-7.7); Nucleated Red Blood Cells % 0 %; Platelet Count 210 10^3/cmm (157-399); Red Blood Count 4.81 10^6/uL (3.85-5.65); Red Cell Distribution Width 13.1 % (12.1-15.1); White Blood Count 10.57 10^3/uL (3.29-11.43)
[2024-02-27 08:38] LABS: Bilirubin Urine Negative (Negative); Blood Urine Trace (Negative); Glucose Urine UA Negative (Normal); Ketones Urine Negative (Negative); Leukocyte Esterase Urine 3+ (Negative); Nitrate Urine Positive (Negative); Protein Urine Negative (Negative); Specific Gravity, Urine 1.011 (1.005-1.030); Urine Appearance Cloudy (CLEAR); Urine Color Yellow (Yellow); Urobilinogen Urine 0.2 mg/dL (Negative)
[2024-02-27 08:40] LABS: Bacteria Urine 4+ /hpf; Hyaline Casts Urine 1.65 /lpf; RBC Urine 0-2 /hpf (0-2); Squamous Epithelial Cell Urine 21-50 /hpf (0-5); WBC Urine 51-100 /hpf (0-5)
[2024-02-27 08:53] LABS: Add Urine Culture? No
[2024-02-27 09:09] LABS: Alanine Aminotransferase 10 U/L (0-33); Albumin Level 4.3 g/dL (3.5-5.2); Alkaline Phosphatase 76 U/L (35-105); Anion Gap 18.4 (5-19); Aspartate Amino Transferase 14 U/L (0-32); Blood Urea Nitrogen 27 mg/dL (8-23); Calcium 9.2 mg/dL (8.5-10.5); Carbon Dioxide 25 mmol/L (22-29); Chloride 101 mmol/L (98-107); Free T4 Free Thyroxine 1.88 ng/dL (0.82-1.77); Globulin 2.8 g/dL (1.3-4.6); Glomerular Filtration Rate 55.8 mL/min (90-130); Glucose 110 mg/dL (65-115); Magnesium 1.8 mg/dL (1.7-2.3); Osmolality Calculated 296 mOsm/kg (285-295); Phosphorus 4.4 mg/dL (2.5-4.5); Potassium 4.4 mmol/L (3.5-5.1); Sodium 140 mmol/L (136-145); Thyroid Stimulating Hormone 0.77 uIU/mL (0.27-4.20); Total Bilirubin 0.6 mg/dL (0.15-1.2); Total Protein 7.1 g/dL (6.6-8.7)
[2024-02-27 09:16] LABS: Urine Creatinine 41 mg/dL (28-217); Urine Protein Random 12 mg/dL
[2024-02-27 09:17] LABS: UPRO/UCREAT Ratio 0.29 mg/mg CR
[2024-02-28 16:04] LABS: Tacrolimus, Highly Sensitive 7.9 mcg/L
== END 2024-02-27 07:56 | disposition home or self-care (01) ==
LOC: LAB 07:58
PROVIDERS: PCP Family Medicine; Visit Provider Hospitalist
DX: E03.9 Hypothyroidism, unspecified (principal)
CPT/HCPCS: 36415; 80053; 80197; 81001; 82570; 83735; 84100; 84156; 84439; 84443; 85025

== ENCOUNTER 2024-03-04 14:22 | Oncology outpatient (recurring) (ONCR) | payer OTHER, SELFPAY ==
[2024-03-04 15:10] VITALS: BP 142/87; PULSE 59; RESP 16; TEMP 36.4; O2SAT 99
[2024-03-04] MEDS: denosumab 60 mg SDV SUBCUT (15:12)
== END 2024-03-22 23:59 | disposition home or self-care (01) ==
LOC: ONCMED 14:23
PROVIDERS: PCP Family Medicine; Visit Provider Family Medicine
DX: M81.0 Age-related osteoporosis without current pathological fracture (principal); Z79.899 Other long term (current) drug therapy
CPT/HCPCS: 96372; J0897

== ENCOUNTER 2024-04-02 08:03 | Outpatient (CLI) | payer OTHER, SELFPAY ==
[2024-04-02 08:48] LABS: Calcium 9.2 mg/dL (8.5-10.5)
[2024-04-02 08:49] LABS: Chol HDL Ratio 2.88 mg/dL (0.0-4.40); Cholesterol 138 mg/dL (0-200); HDL Cholesterol 48 mg/dL (60-100); LDL Cholesterol Calculated 71 mg/dL (50-129); LDL HDL Ratio 1.48 RATIO (0.00-3.22); Triglycerides 94 mg/dL (0-150); Uric Acid 4.1 mg/dL (2.4-5.7)
[2024-04-02 08:52] LABS: Parathyroid Hormone 54.4 pg/mL (15-65)
[2024-04-02 09:02] LABS: 25 Hydroxy Vitamin D 35 ng/mL (30-100)
== END 2024-04-02 08:04 | disposition home or self-care (01) ==
PROVIDERS: PCP Family Medicine; Visit Provider Hospitalist
DX: N25.81 Secondary hyperparathyroidism of renal origin (principal); E79.0 Hyperuricemia without signs of inflammatory arthritis and tophaceous disease; Z94.0 Kidney transplant status; I10 Essential (primary) hypertension; N18.2 Chronic kidney disease, stage 2 (mild); D63.1 Anemia in chronic kidney disease; N18.9 Chronic kidney disease, unspecified; E83.9 Disorder of mineral metabolism, unspecified; M89.9 Disorder of bone, unspecified; Z79.60 Long term (current) use of unspecified immunomodulators and immunosuppressants; Q61.3 Polycystic kidney, unspecified
CPT/HCPCS: 36415; 80061; 82306; 82310; 83970; 84550; 87496; 87798

== ENCOUNTER 2024-09-23 09:27 | Outpatient (CLI) | payer MEDICARE, OTHER, SELFPAY ==
--- NOTE | 2024-09-23 09:32 | MM_ITS ---
WS: [id number] BILATERAL SCREENING DIGITAL TOMOSYNTHESIS MAMMOGRAM WITH CAD HISTORY: SCREENING COMPARISON: 08/28/2023, 08/24/2022 Bilateral CC and MLO views with tomosynthesis and synthetic mammography submitted. Computer aided detection analyzed. Breast composition: There are scattered areas of fibroglandular density. No suspicious masses, microcalcifications or architectural distortion. Benign calcifications in each breast. MM/MM scr BI tomosynthesis [id number] IMPRESSION: BI-RADS: 2 - Benign. FOLLOW UP: 1 Year Follow-up
== END 2024-09-23 09:28 | disposition home or self-care (01) ==
LOC: RAD 09:28
PROVIDERS: PCP Family Medicine; Visit Provider Family Medicine
DX: Z12.31 Encounter for screening mammogram for malignant neoplasm of breast (principal); R92.323 Mammographic fibroglandular density, bilateral breasts; R92.1 Mammographic calcification found on diagnostic imaging of breast
CPT/HCPCS: 77063; 77067

== ENCOUNTER 2024-10-08 12:47 | Oncology outpatient (recurring) (ONCR) | payer MEDICARE, OTHER, SELFPAY ==
[2024-10-08] MEDS: denosumab 60 mg SDV SUBCUT (13:10)
== END 2024-10-20 23:59 | disposition home or self-care (01) ==
PROVIDERS: PCP Family Medicine; Visit Provider Family Medicine
DX: M81.0 Age-related osteoporosis without current pathological fracture (principal); Z79.899 Other long term (current) drug therapy
CPT/HCPCS: 96372; J0897

== ENCOUNTER → 2024-12-24 08:05 | Outpatient (BNVA) | payer MEDICARE, OTHER, SELFPAY | PROVIDERS: PCP Family Medicine; Visit Provider Nurse Practitioner Family | DX: I78.8 Other diseases of capillaries (principal); L73.8 Other specified follicular disorders; D18.01 Hemangioma of skin and subcutaneous tissue; L81.4 Other melanin hyperpigmentation; L57.8 Other skin changes due to chronic exposure to nonionizing radiation; X32.XXXA Exposure to sunlight, initial encounter; L57.3 Poikiloderma of Civatte; Z94.0 Kidney transplant status; B07.8 Other viral warts; L53.8 Other specified erythematous conditions; R20.8 Other disturbances of skin sensation | CPT/HCPCS: 17110; 99213 ==